=== PATIENT | male | born 1960 | race Caucasian/White ===

== ENCOUNTER 2019-12-02 10:22 | Inpatient (IN) | payer MEDICARE, SELFPAY ==
[2019-12-02] VITALS (27 sets, daily range): BP systolic 91–112; BP diastolic 52–78; PULSE 62–76; RESP 16–27; TEMP 36.7; O2SAT 90–98; BMI 26.5
--- NOTE | 2019-12-02 10:41 | ECG_ITS ---
Measurements Intervals [place] Rate: 70 P: 44 [place]: 173 QRS: 30 QRSD: 87 T: 0 QT: 377 QTc: 407 SINUS RHYTHM MODERATE T-WAVE ABNORMALITY, CONSIDER LATERAL ISCHEMIA [-0.1+ mV T WAVE IN I/aV I/aVL/V5/V6] No previous ECG available for comparison Electronically Signed On 12-02-2019 20:48:55 CDT by Linda Awad M.D. [id number]
--- NOTE | 2019-12-02 10:41 | XRR_ITS ---
PROCEDURE INFORMATION: Exam: XR Chest, 1 View Exam date and time: 12/02/2019 10:50 AM Age: 59 years old Clinical indication: Cough; Prior surgery; Surgery date: 6+ months; Surgery type: Heart; Additional info: Cough/congestion TECHNIQUE: Imaging protocol: XR of the chest Views: 1 view. COMPARISON: CR Chest 1 [place] [id number] 03/24/2018 9:44 PM FINDINGS: Lungs: Lungs are well aerated without a focal area of consolidation. Pleural space: Unremarkable. No pleural effusion. No pneumothorax. Heart/Mediastinum: The cardiac silhouette appears enlarged, some of which is magnification related to the AP projection. Bones/joints: Prior sternotomy XR/XR chest 1V portable [id number] IMPRESSION: Lungs are well aerated without a focal area of consolidation.
--- NOTE | 2019-12-02 10:59 | ED_ITS ---
Entered by Sharon Arroyo, acting as scribe for Zaria Ignacio HPI - Chest Pain General: Chief Complaint: Chest Pain Stated Complaint: CHEST PAIN Time Seen by Provider: 12/02/19 10:59 Source: patient Mode of arrival: ambulatory Limitations: no limitations History of Present Illness: HPI narrative: 59 yo Male presents to ED with complaint of chest pain. Pt states that he has 17 stents and an extensive cardiac history. Pt states that his pain started last night. The pain is been waxing and waning but is never completely gone away. He has associated shortness of breath and nausea but denies diaphoresis. He does have occasional radiation down his left arm. MD complaint: chest pain Pertinent past history: coronary artery disease and prior MA Onset (ago): day(s) Timing of current episode: episodic and still present Prior episodes: Yes Onset: during rest Pain location: substernal Pain radiation: left arm, back, neck and left shoulder Pain scale (0-10): 3 Quality: tightness Relieving factors: nothing Exacerbating factors: nothing Associated symptoms: Reports diaphoresis, dyspnea and nausea; Deny palpitations or syncope Treatment prior to arrival: none Review of Systems General: Reports: other (negative unless marked) Const: Reports: diaphoresis Eyes: Denies: change in vision or blurry vision ENMT: Denies: throat pain, painful swallowing, hoarseness, ear pain, ear discharge, Change in hearing or nasal discharge Card: Reports: chest pain, shortness of breath on exertion and shortness of breath when lying down; Denies: palpitations, irregular heart rhythm, syncope or pre-syncope Resp: Reports: shortness of breath GI: Reports: nausea : Denies: flank pain, difficulty urinating, painful urination, urinary frequency, urinary urgency, decreased urine ouput, urinary incontinence or blood in urine Musc: Denies: neck pain, back pain, extremity pain, extremity swelling, joint pain, joint swelling, joint warmth or joint stiffness Skin/Breast: Denies: rash, skin tenderness or yellow skin Neuro: Denies: headache, numbness in extremities, weakness in extremities, changes in sensation, lack of coordination, difficulty walking, dizziness, vertigo or confusion Endo: Denies: excessive thirst, tired all the time, cold intolerance, excessive sweating, flushing or hot flashes Jerry/Lymph: Denies: easy bruising, easy bleeding, petechiae or enlarged lymph nodes All/Imm: Denies: hives, throat swelling, tongue swelling, facial swelling or acute wheezing PFSH ED PFSH: Medical History (Updated 12/02/19 @ 18:31 by Gurvinder Bah MD) Abuse of smoked substance 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 Started having heart problems in the 30s. No problems noted. Family/Other CAD (coronary artery disease) Many of his uncles and aunts on the paternal side had heart disease/hear t attack in their 30s and 50s. His sister and brother both had coronary disease and coronary intervention in their 50s. Social History (Updated 12/02/19 @ 17:58 by Rajwinder Palm MD) Smoking and tobacco status: current every day smoker cigarettes Packs smoked per day: 1.5 Years cigarettes smoked: 40 [ Other cigarette details: Currently he smokes less than half pack a day especially over the last 1 year. ] Physical Exam Const: COMMON NORMALS: no apparent distress, oriented x3, no limitations, heal thy appearing and well nourished EXAM LIMITATIONS: no altered mental status GENERAL APPEARANCE: cooperative, well kempt and well developed ORIENTATION/CONSCIOUSNESS: Yes awake HENMT: COMMON NORMALS: normocephalic, head/scalp atraumatic, hearing grossly normal bilaterally, external ears normal, EAC's normal, external nose normal and moist oral mucous membranes HEAD & SCALP: normal to inspection, normocephalic and atraumatic FACE & SINUS: normal facial exam and face symmetric NOSE: external nose normal and nares normal EXTERNAL EAR: Yes external ears normal EXTERNAL AUDITORY CANAL: EAC's normal MOUTH: oral and palatal mucosa normal and tongue normal Eye: COMMON NORMALS: PERRL, EOMs intact bilaterally, conjunctivae normal and no scleral icterus GENERAL EYE: normal appearance of both eyes and normal light reflex CONJUNCTIVA: Yes conjunctivae normal SCLERA: sclerae normal CORNEA: Yes corneas normal PUPIL: Yes PERRL DIRECT OPHTHALMOSCOPY: Yes normal light reflex Neck/C-Spine: COMMON NORMALS: full ROM, no lymphadenopathy, supple, no meningeal signs and no JVD GENERAL: Yes normal visual inspection and Yes trachea midline CERVICAL SPINE: Yes cervical ROM normal Chest: COMMONS NORMALS: inspection of chest normal and palpation of chest normal Resp: COMMON NORMALS: normal respiratory effort, no retractions, no use of accessory muscles and clear to auscultation bilaterally EFFORT & INSPECTION: Yes able to speak in complete sentences AUSCULTATION: clear to auscultation bilaterally Cardio: COMMON NORMALS: no JVD, regular rate, regular rhythm, S1 normal heart sound, S2 normal heart sound, no gallops, no clicks, no murmurs and no rub JUGULAR VENOUS DISTENTION: no JVD RATE: regular rate RHYTHM: regular rhythm HEART SOUNDS: S1 normal and S2 normal GI: COMMON NORMALS: soft to palpation, non-tender, no hepatosplenomegaly and no masses INSPECTION: Yes normal to inspection PALPATION: Yes soft and Yes no hepatosplenomegaly : COMMON NORMALS: Yes no CVA tenderness BLADDER/KIDNEY EXAM: Yes no CVA tenderness Back/Pelvis: COMMON NORMALS: no CVA tenderness, thoracic and lumbar spine normal to inspection, no thoracic nor lumbar tenderness and thoraco-lumbar ROM normal Extremity: COMMON NORMALS: normal to inspection, full ROM, normal capillary refill, no joint enlargement, no clubbing, cyanosis or edema and no calf tenderness Neuro: COMMON NORMALS: oriented x3, CN's II-XII intact bilaterally, moves all extremities, no focal motor deficits and no sensory deficits noted MENINGEAL SIGNS: Yes no meningeal signs Psych: COMMON NORMALS: mental status grossly normal, thought process normal, cooperative, affect normal, speech normal and activity/motor behavior normal APPEARANCE: Yes well kempt SPEECH: Yes normal speech THOUGHT PROCESS: normal thought process Skin: COMMON NORMALS: no rashes or lesions noted, skin turgor normal, no jaundice, no petechiae and no mottling GENERAL SKIN EXAM: no rashes or lesions noted and turgor normal Course Consultations: Consultation #1: Spoke with Dr. Palm, Manager Field Sales. All EKGs presented to and discussed with him. First EKG is most suspicious but after seeing the other EKGs and further discussion, cannot call STEMI at this time. Time: 11:30 Consultation #2: Spoke with Dr. Palm, Manager [employer], to notify him of a significant jump in the patient's troponin. Pt is pain free at this time. Dr. Chowdary, Hospitalist, has also been notified of the patient's critical lab finding. Time: 20:40 Vital Signs: Vital signs: Vital Signs Temperature 98.1 F 12/02/19 22:30 Pulse Rate 70 12/02/19 22:45 Respiratory Rate 22 H 12/02/19 22:45 Blood Pressure 108/70 12/02/19 22:45 Pulse Oximetry 94 12/02/19 22:45 MDM - Chest Pain MDM Narrative: Medical decision making narrative: Mr. Polk is a nice 59-year-old male who comes in complaining of chest pain that is been constant since last night but waxing and waning in intensity. He has associated symptoms of nausea, shortness of breath and radiation down his left arm. He has an extensive cardiac history including 17 stents and bypass surgery. There is record that he is noncompliant and continues to smoke and does not take his medicines like he is supposed to. After 3 nitroglycerin his pain is gone from a 3 out of 10 to a 2 out of 10. I am going to give him morphine and Zofran at this time. I reviewed the case with Dr. Palm who reviewed all the EKGs and agrees his first EKG looked very suspicious but on his second and third EKGs performed here there is no criteria for a STEMI. He recommends giving the patient gentle IV fluids, nitroglycerin and Lovenox and he will consult on the patient. I reviewed this plan in case with Dr. Bah who is agreeable to all this and would like the patient admitted to the ICU. We will continue to aggressively treat the patient's pain. 1430 -patient continues to have intermittent pain that never goes above 2 out of 10. It resolved with morphine. His heart rate and blood pressure are stable. His EKG is unchanging. EKGs were reviewed with Dr. Palm and he agrees. Dr. Garrett and Dr. Palm are aware. Lab Data: Attestation: I reviewed the patient's lab results. Labs: Lab Results 12/02/19 12/02/19 12/02/19 Range/Units 11:00 11:00 11:00 WBC 9.3 (4.0-10.0) 10^3/ uL RBC 4.90 (4.1-5.3) 10^6/u L Hgb 15.1 (11.7-16.6) g/dL Hct 45.7 (42.0-52.0) % MCV 93.3 (80-94) fL MCH 30.8 (28.0-34.0) pg MCHC 33.0 (30.0-36.0) g/dL RDW 13.0 (12.1-15.1) % Plt Count 270 (130-400) 10^3/c mm MPV 9.7 (7.4-10.4) fL Neut % (Auto) 71.0 % Lymph % (Auto) 21.3 % [place] % (Auto) 5.3 % Eos % (Auto) 1.6 % Baso % (Auto) 0.2 % Neut # (Auto) 6.6 (1.8-7.7) 10^3/u L Lymph # (Auto) 2.0 (0.8-4.8) 10^3/u L [place] # (Auto) 0.5 (0.2-0.9) 10^3/u L Eos # (Auto) 0.2 (0.0-0.8) 10^3/u L Baso # (Auto) 0.0 (0.0-0.1) 10^3/u L Nucleated RBC % (a uto) 0 % Nucleated RBCs # 0.0 /100WBC Sodium 133 L (136-145) mmol/L Potassium 4.2 (3.5-5.1) mmol/L Chloride 98 (98-107) mmol/L Carbon Dioxide 23 (22-29) mmol/L Anion Gap 16.2 (5-19) BUN 5 L (8-23) mg/dL Creatinine 0.7 (0.7-1.2) mg/dL GFR Calculation 115.0 (90-130) mL/min Glucose 121 H (65-115) mg/dL Calculated Osmolal ity 273 L (285-295) mOsm/k g Calcium 9.5 (8.5-10.5) mg/dL Total Bilirubin 0.5 (0.15-1.2) mg/dL AST 35 (0-40) U/L ALT 15 (0-41) U/L Alkaline Phosphata se 70 (40-130) IU/L Troponin T Jean Carlos stahl 211 H* (0-15) ng/mL Total Protein 7.2 (6.6-8.7) g/dL Albumin 3.6 (3.5-5.2) g/dL Globulin 3.6 (1.3-4.6) g/dL Imaging Data^: CXR: Radiologist's impression: [address] [address] XRay Report Signed Patient: Jesus Polk Sr #: [id number] : 1960Acct#:[id number] Age/Sex: 59 / MADM Date: 12/02/19 Loc: [facility]/Bed: Attending Dr: Ordering Provider/Ordering MD: Smitha Frances Date of Service: 12/02/19 Procedure(s): XR chest 1V portable [id number] Accession Number(s): [id number] Report Number: [id number] PROCEDURE INFORMATION: Exam: XR Chest, 1 View Exam date and time: 12/02/2019 10:50 AM Age: 59 years old Clinical indication: Cough; Prior surgery; Surgery date: 6+ months; Surgery type: Heart; Additional info: Cough/congestion TECHNIQUE: Imaging protocol: XR of the chest Views: 1 view. COMPARISON: CR Chest 1 [place] [id number] 03/24/2018 9:44 PM FINDINGS: Lungs: Lungs are well aerated without a focal area of consolidation. Pleural space: Unremarkable. No pleural effusion. No pneumothorax. Heart/Mediastinum: The cardiac silhouette appears enlarged, some of which is magnification related to the AP projection. Bones/joints: Prior sternotomy XR/XR chest 1V portable [id number] IMPRESSION: Lungs are well aerated without a focal area of consolidation. Dictated By:Hayden Redmond MD Signed By:Hayden Redmond MDSigned Date/Time:12/02/19 1140 DD/ 1139 EKG Data^: EKG 1: Attestation: I personally reviewed and interpreted this EKG as follows: EKG interpretation date: 12/02/19 EKG interpretation time: 10:45 Interpretation: Normal sinus rhythm at 70 beats a minute, questionable ST elevation V2 through V6 with biphasic T waves in V3. No reciprocal changes. Normal intervals, no blocks. Reviewed and agreed upon by Dr. Palm. EKG 2: Attestation: I personally reviewed and interpreted this EKG as follows: EKG interpretation date: 12/02/19 EKG interpretation time: 11:10 Interpretation: Normal sinus rhythm at 70 beats a minute, nonspecific ST and T wave changes. Biphasic T waves in V3. T wave inversions V4 through V6 as well as aVF. PVC noted. Agreed upon with Dr. Palm. EKG 3: Attestation: I personally reviewed and interpreted this EKG as follows: EKG interpretation date: 12/02/19 EKG interpretation time: 11:23 Interpretation: Normal sinus rhythm at 86 beats a minute, nonspecific ST and T wave changes. Resolution of lateral T wave inversions. Agreed upon by Dr. Palm. EKG 4: Attestation: I personally reviewed and interpreted this EKG as follows: EKG interpretation date: 12/02/19 EKG interpretation time: 13:54 Interpretation: Sinus bradycardia at 59 beats a minute, nonspecific ST-T wave changes. T wave inversions V4 through V6. Confirmed with Dr. Palm. Discharge Plan Discharge Patient Disposition: Admitted As Inpatient Admit Provider: Gurvinder Bah Clinical Impression: Acute non-ST elevation myocardial infarction (NSTEMI) Condition: Stable Discharge Date/Time: 12/02/19 22:04 Coding Level of Care Code ED Waxer Operator for Chg Fwd Exam Comprehensive The documentation recorded by the Dina castellanos Carmen, accurately reflects the service I personally performed and the decisions made by [facility] Eli N Dec 02, 2019 10:22
--- NOTE | 2019-12-02 10:59 | ECG_ITS ---
Measurements Intervals [place] Rate: 86 P: 74 [place]: 160 QRS: 45 QRSD: 78 T: 20 QT: 350 QTc: 420 SINUS RHYTHM POSSIBLE LEFT ATRIAL ENLARGEMENT [-0.1mV P WAVE IN V1/V2] NONSPECIFIC T-WAVE ABNORMALITY No previous ECG available for comparison Electronically Signed On 12-02-2019 20:48:57 CDT by Linda Awad M.D. [id number]
[2019-12-02 11:08] LABS: Basophils % 0.2 %; Eosinophils # 0.2 10^3/uL (0.0-0.8); Eosinophils % 1.6 %; Hematocrit 45.7 % (42.0-52.0); Hemoglobin 15.1 g/dL (11.7-16.6); Lymphocytes % 21.3 %; Mean Corpuscular Hemoglobin 30.8 pg (28.0-34.0); Mean Corpuscular Volume 93.3 fL (80-94); Mean Platelet Volume 9.7 fL (7.4-10.4); Monocytes # 0.5 10^3/uL (0.2-0.9); Monocytes % 5.3 %; Neutrophils # 6.6 10^3/uL (1.8-7.7); Nucleated Red Blood Cells % 0 %; Platelet Count 270 10^3/cmm (130-400); White Blood Count 9.3 10^3/uL (4.0-10.0)
[2019-12-02] MEDS: nitroglycerin 0.4 mg sublingual Tablet SUBLINGUAL ×3 (11:08→11:18)
[2019-12-02] MEDS: aspirin 325 mg Tablet PO (11:08)
[2019-12-02 11:22] LABS: Alanine Aminotransferase 15 U/L (0-41); Albumin Level 3.6 g/dL (3.5-5.2); Alkaline Phosphatase 70 IU/L (40-130); Anion Gap 16.2 (5-19); Aspartate Amino Transferase 35 U/L (0-40); Blood Urea Nitrogen 5 mg/dL (8-23); Calcium 9.5 mg/dL (8.5-10.5); Carbon Dioxide 23 mmol/L (22-29); Chloride 98 mmol/L (98-107); Globulin 3.6 g/dL (1.3-4.6); Glucose 121 mg/dL (65-115); Osmolality Calculated 273 mOsm/kg (285-295); Potassium 4.2 mmol/L (3.5-5.1); Sodium 133 mmol/L (136-145); Total Bilirubin 0.5 mg/dL (0.15-1.2); Total Protein 7.2 g/dL (6.6-8.7)
[2019-12-02 11:39] LABS: Troponin(5th) Baseline 211 ng/mL (0-15)
[2019-12-02] MEDS: morphine 4 mg/mL SDV 1 mL IVP ×2 (11:47→14:08)
[2019-12-02] MEDS: ondansetron 2 mg/ML SDV 2 mL 4 MG IVP ×2 (11:48→23:20)
[2019-12-02] MEDS: nitroglycerin 1 gm/inch oint Pkt 1 INCH TOPICAL (11:48)
[2019-12-02] MEDS: sodium chloride 0.9% 1,000 ML 999 ML IV (12:02)
[2019-12-02] MEDS: enoxaparin 80 mg/0.8 mL Syringe 65 MG SUBCUT (12:02)
--- NOTE | 2019-12-02 12:41 | ECG_ITS ---
Measurements Intervals [place] Rate: 59 P: 38 [place]: 175 QRS: 26 QRSD: 80 T: -89 QT: 439 QTc: 437 SINUS BRADYCARDIA POSSIBLE RIGHT VENTRICULAR CONDUCTION DELAY [RSR (QR) IN V1/V2] MODERATE T-WAVE ABNORMALITY, CONSIDER ANTEROLATERAL ISCHEMIA [-0.1+ mV T WAVE IN V3-V6] No previous ECG available for comparison Electronically Signed On 12-02-2019 20:53:31 CDT by Linda Awad M.D. [id number]
--- NOTE | 2019-12-02 16:41 | ECG_ITS ---
Measurements Intervals [place] Rate: 70 P: 46 [place]: 167 QRS: 41 QRSD: 89 T: 254 QT: 402 QTc: 434 SINUS RHYTHM WITH OCCASIONAL VENTRICULAR PREMATURE COMPLEXES MODERATE T-WAVE ABNORMALITY, CONSIDER ANTERIOR ISCHEMIA [-0.1+ mV T WAVE IN V3 V3/V4] No previous ECG available for comparison Electronically Signed On 12-02-2019 20:52:54 CDT by Linda Awad M.D. [id number]
--- NOTE | 2019-12-02 17:35 | PM.CONSULT ---
Providers/Reason For Consult Consulting Physican/Specialty*: CATERINA Palm MD/cardiology Reason for Consult*: Patient with chest pain/elevated troponin T Requesting Kellyan: Zaria calderon History of Present Illness History of Present Illness Jesus Polk Sr is a 59 year old male who is admitted to the hospital through the emergency room, where he presented with the complaints of chest pain since last night. This patient is a very poor historian. He has an extensive history of coronary artery disease and had a multiple PCI's in the past. According the patient, he had a total of 17 stents over the last 24 years. He had his first myocardial event at the age of 35. Since then, he had multiple PCI's. In 2005, he had a three-vessel coronary bypass surgery, while being in [place]. Details of the bypass surgery is not available. Since the bypass surgery, he had coronary angiograms and PCI's. Most recently, he had a cardiac catheter[place] in April [address] Iris del real [place] [facility] [place] was found to have patent venous graft to the LAD. The venous graft the RCA was occluded. There was a high-grade lesion in the venous graft to the obtuse marginal artery which was primarily stented. He had a total occlusion of the LAD, left circumflex and right coronary artery. According the patient, he has not been to a physician for the last more than 2 years. His compliance to medication is questionable. He has not been feeling well for the last more than a week. He had a loss of appetite, nausea, low-grade fever and chills and some shortness of breath. Last night around 10:00, he started having pain in the upper substernal area which was radiating to the left arm associated with nausea and shortness of breath. The pain was waxing and waning up until midnight. Intensity of the pain was 8/10. Finally the pain started easing off enough for him to go to bed. Around 8:00 this morning, he woke up again with pain in the chest and also in the left arm. The intensity of the pain was 5/10 at this time. He had a nausea and some shortness of breath. No palpitation, dizziness or syncopal episode. No significant cough or hemoptysis. No abdominal pain or dysuria. No other specific complaints. Because of the persistence of the symptoms, he decided to come to the hospital. [place] [facility] [place] [facility]. At the time of my examination, the pain is 1 or 2/10 in intensity. Review of Systems Narrative: CONSTITUTIONAL: Low-grade fever and chills as mentioned above. Generalized weakness, nausea and loss of appetite. EYES: No blurring of vision or other visual disturbances lately. ENT: No hoarseness of voice, auditory disturbances or sore throat. CARDIOVASCULAR: As mentioned above. RESPIRATORY: Has been having some shortness of breath with activities. GASTROINTESTINAL: No hematemesis or melena. GENITOURINARY: No dysuria or hematuria. INTEGUMENTARY: No skin rashes or history of skin cancer. NEURO: No transient ischemic attacks or amaurosis. PSYCHIATRIC: No history of psychosis or major depression. HEMATOLOGIC: No bleeding disorders or significant anemia. ENDOCRINE: No history of polyuria or polydipsia. MUSCULOSKELETAL: No recent joint pain or swelling. ALLERGY/IMMUNOLOGY: As mentioned above. Meds/Allergies Home Medications and Allergies Home Medications Medication Instructions Recorded Confirmed Type furosemide 12/03/19 12/03/19 History lisinopril 12/03/19 12/03/19 History metoprolol succinate PO 12/03/19 12/03/19 History Allergies Allergy/AdvReac Type Severity Reaction Status Date / Time No Known Allergies Allergy Verified 12/02/19 10:34 Current Medications Current Medications Generic Name Dose Route Start Last Admin Trade Name Freq PRN Reason Stop Dose Admin Nitroglycerin 0.4 mg 12/02/19 10:59 12/02/19 11:18 Nitrostat SUBLINGUAL 1 tab Q5M PRN Administration CHEST PAIN PFSH Acute PFSH: Medical History (Updated 12/02/19 @ 18:31 by Gurvinder Bah MD) Abuse of smoked substance 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 Started having heart problems in the 30s. No problems noted. Family/Other CAD (coronary artery disease) Many of his uncles and aunts on the paternal side had heart disease/heart attack in their 30s and 50s. His sister and brother both had coronary disease and coronary intervention in their 50s. Social History (Updated 12/02/19 @ 17:58 by Rajwinder Palm MD) Smoking and tobacco status: current every day smoker cigarettes Packs smoked per day: 1.5 Years cigarettes smoked: 40 [ Other cigarette details: Currently he smokes less than half pack a day especially over the last 1 year. ] Vitals/I&O/Wt Last Vital Signs Temp 98.0 F 12/02/19 10:43 Pulse 72 12/02/19 10:43 Resp 18 12/02/19 14:08 BP 112/78 12/02/19 10:43 Pulse Ox 98 12/02/19 10:43 Weight last 48 hrs Weight 145 lb Physical Exam Narrative: EXAM NARRATIVE: GENERAL: The patient is alert and oriented times three. Not in any acute distress. HEENT: Minimal pallor, icterus or lymphadenopathy. The pupils are reactant to light. Oral cavity: There are no mucous membrane lesions. Funduscopic examination: The fundus is not visualized NECK: Trachea appears to be central. No masses noted. No JVD or thyromegaly appreciated. No carotid bruit. RESPIRATORY: Chest is symmetrical. No intercostals muscle retraction or any accessory muscle activation. There is no chest wall tenderness. Breath sounds are heard bilaterally. No rales or rhonchi heard. No evidence of any consolidation. BREASTS: Deferred. HEART: The PMI is in the 5th left intercostals space just inside the midclavicular line. No palpable precordial events. S1 and S2 are normal. No S3 or S4 heard. No pericardial rub or any click heard. Short systolic murmur in the left sternal border ABDOMEN: No vessel pulsations or distention. No tenderness. No organomegaly appreciated. No abdominal bruit. Bowel sounds are normally heard. : Deferred. RECTAL: Deferred. LYMPHATIC: No lymphadenopathy noted in the neck or groin. EXTREMITIES: No edema or cyanosis. No clubbing. The pulses are symmetrical bilaterally. The radial, femoral, dorsalis pedis and the posterior tibial pulses are palpated and found to be of low volume and amplitude. MUSCULOSKELETAL: No acute joint deformities or swelling SKIN: There are no significant scars or skin rash noted. NEUROPSYCHIATRIC: The patient is alert and oriented x3. Appears to be in a good mood. The higher functions are grossly within normal limits. No tremors or rigidity noted. Data Labs: Other Labs: Abnormal lab results 12/02/19 12/02/19 12/02/19 Range/Units 11:00 11:00 13:05 Sodium 133 L (136-145) mmol/L BUN 5 L (8-23) mg/dL Glucose 121 H (65-115) mg/dL Calculated Osmolal ity 273 L (285-295) mOsm/k g Troponin T Baselin e 211 H* (0-15) ng/mL Troponin T 120 [place] 286.0 H (0-15) ng/mL Delta Troponin T 75.0 H* (0-10) ABS# Imaging^: CXR: My impression: Normal cardiac silhouette with no lung infiltrates. No acute pathology noted. EKG^: EKG 1: My Interpretation: The EKG revealed sinus rhythm with diffused nonspecific ST-T changes in the anterolateral and inferior leads. Poor R wave progression. Questionable PVCs. Other Data: Other data: Cardiac authorization on 05/13/[address] Garcia Angiographic Findings Cardiac Arteries and Lesion Findings LMCA: Normal. LAD: Chronic occlusion.The vessel is occluded proximally LCx: Chronic occlusion.Proximal occlusion RCA: Chronic occlusion.Occluded in the midportion Cardiac Grafts - There is a Vein graft that originates at the Aorta Left and attaches to the 1st Ob Patricia (This graft has 2 lesions a 80-90% stenosis in the ostium down through the proximal portion of the graft and a 90% stenosis in the mid-portion of the graft.). - There is a Vein graft that originates at the Aorta Left and attaches to the Mid LAD (This graft is patent.). - There is a Vein graft that originates at the Aorta Right and attaches to the Dist RCA (This graft is occluded chronically.). A&P Assessment and plan (1) Acute non-ST elevation myocardial infarction (NSTEMI): Patient clinical features are consistent with an acute coronary syndrome, non-ST elevation myocardial infarction. Hemodynamically seems to be stable. He may be treated with subcu Lovenox, aspirin, Plavix, beta-edy, statin and other symptomatic measures. 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 The most recent cardiac cauterization 2016 revealed occluded venous graft to to the right coronary artery. High-grade lesion to the venous graft to obtuse marginal artery which was intervened. Patent venous graft to the LAD. Reocclusion of the venous graft/progression of disease in the other vessels are considerations. This needs to be further evaluated. Status: Acute Code(s): I25.810 - Atherosclerosis of coronary artery bypass graft(s) without angina pectoris (3) Benign essential hypertension with target blood pressure below 140/90: Currently he is normotensive. May continue on the current medications. Status: Acute Code(s): I10 - Essential (primary) hypertension (4) Abuse of smoked substance: Patient is strongly advised to quit smoking. 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
--- NOTE | 2019-12-02 18:18 | PM.HP ---
Providers/Chief Complaint Admitting Physician: Gurvinder Bah Chief Complaint: CHEST PAIN History of Present Illness Jesus Polk Sr is a 59 year old male presents to emergency department with severe bandlike pressure chest/back pain radiating to his left arm that started last evening when patient was sitting. Reports that he became very nauseous and diaphoretic as well as short of breath. Reports that by 12:00 pain gradually improved and he was able to go to sleep. At 8 AM this morning he woke up again with severe pain prompting further evaluation in the emergency department. He admits that he did not take medications for at least 1 year as he ran out. He did not have aspirin, nitroglycerin or analgesic at home to use. He reports similar episodes for the last couple weeks off-and-on but not to this severe extent. He did not present earlier because he does not like false alarm . He continues to smoke and reports that because of nausea he has been only smoking 5 cigarettes a day. His pain lasted until he presented to ER and was started on nitroglycerin drip. During my evaluation in emergency department patient's pain was gone but he continued to be slightly nauseous. Reports that he is hungry and wants to eat something as he did not eat since last evening. He has previous history of coronary artery disease requiring total of 17 stents since age 35 as well as three-vessel CABG in 2005. He has hypertension and dyslipidemia but denies previous history of diabetes. He is disabled because of the heart disease and is not very active. In the emergency department he had some concerning EKG changes and significantly elevated troponin. He was seen by Dr. Palm and diagnosed with non-ST elevation IA. Review of Systems Const: Reports: other; Denies: fever or chills Eyes: Denies: change in vision ENMT: Denies: throat pain or nasal congestion Card: Denies: edema, lightheadedness or shortness of breath when lying down Resp: Reports: productive cough (White phlegm productive. Chronic and unchanged.); Denies: coughing up blood GI: Denies: abdominal pain, vomiting, vomiting blood, coffee grounds in vomit, difficulty swallowing, heartburn/indigestion, diarrhea, constipation, blood in stool or black tarry stool : Reports: difficulty urinating (Has difficulty to initiate urination, slow stream and dribbling. ); Denies: flank pain or painful urination Musc: Denies: neck pain or joint pain Skin/Breast: Denies: rash or itching Neuro: Denies: headache, numbness in extremities, weakness in extremities, changes in sensation or lack of coordination Psych: Denies: anxiety, depression, suicidal ideation or homicidal ideation Endo: Denies: cold intolerance, excessive sweating or heat intolerance Jerry/Lymph: Denies: easy bruising or tender lymph nodes Medications/Allergies Home Medications Medication Instructions Recorded Confirmed Last Taken Type No Known Home Medications 12/02/19 12/02/19 Unknown History Allergies Allergy/AdvReac Type Severity Reaction Status Date / Time No Known Allergies Allergy Verified 12/02/19 10:34 PFSH Acute PFSH: Medical History (Updated 12/02/19 @ 18:31 by Gurvinder Bah MD) Abuse of smoked substance 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 Started having heart problems in the 30s. No problems noted. Family/Other CAD (coronary artery disease) Many of his uncles and aunts on the paternal side had heart disease/heart attack in their 30s and 50s. His sister and brother both had coronary disease and coronary intervention in their 50s. Social History (Updated 12/02/19 @ 17:58 by Rajwinder Palm MD) Smoking and tobacco status: current every day smoker cigarettes Packs smoked per day: 1.5 Years cigarettes smoked: 40 [ Other cigarette details: Currently he smokes less than half pack a day especially over the last 1 year. ] Vitals/I&O/Wt Last Vital Signs Temp 98.0 F 12/02/19 10:43 Pulse 72 12/02/19 10:43 Resp 18 12/02/19 14:08 BP 112/78 12/02/19 10:43 Pulse Ox 98 12/02/19 10:43 Weight last 48 hrs Weight 65.771 kg Physical Exam Const: COMMON NORMALS: no apparent distress and oriented x3 EXAM LIMITATIONS: no altered mental status GENERAL APPEARANCE: cooperative, comfortable and well developed ORIENTATION/CONSCIOUSNESS: Yes awake, Yes oriented to person, Yes oriented to place and Yes oriented to time HENMT: COMMON NORMALS: normocephalic, head/scalp atraumatic, external ears normal, external nose normal, moist oral mucous membranes and oropharynx normal HEAD & SCALP: normocephalic and atraumatic FACE & SINUS: normal facial exam NOSE: external nose normal and nares normal EXTERNAL EAR: Yes external ears normal and Yes no preauricular adenopathy MOUTH: oral and palatal mucosa normal, lip normal and tongue normal THROAT: posterior oropharynx normal Eye: COMMON NORMALS: EOMs intact bilaterally and conjunctivae normal GENERAL EYE: normal appearance of both eyes CONJUNCTIVA: Yes conjunctivae normal SCLERA: sclerae normal Neck/C-Spine: COMMON NORMALS: no lymphadenopathy, supple, no meningeal signs and no JVD GENERAL: Yes normal visual inspection, Yes trachea midline and No JVD Lymph: LYMPHATIC: no lymphadenopathy noted Chest: COMMONS NORMALS: inspection of chest normal Resp: COMMON NORMALS: normal respiratory effort EFFORT & INSPECTION: Yes able to speak in complete sentences AUSCULTATION: wheezes (Expiratory. Along with coarse upper airway transmitted breath sounds throughout) Cardio: COMMON NORMALS: no JVD, regular rate, regular rhythm, S1 normal heart sound, S2 normal heart sound, no gallops, no murmurs and no rub RATE: regular rate RHYTHM: regular rhythm HEART SOUNDS: S1 normal and S2 normal GI: COMMON NORMALS: normal to inspection, nondistended, normoactive bowel sounds, soft to palpation and non-tender PALPATION: Yes soft : COMMON NORMALS: Yes no CVA tenderness and Yes external exam normal BLADDER/KIDNEY EXAM: Yes no CVA tenderness Back/Pelvis: COMMON NORMALS: no CVA tenderness and thoracic and lumbar spine normal to inspection Extremity: COMMON NORMALS: normal to inspection and no pedal edema Neuro: COMMON NORMALS: oriented x3, moves all extremities, no focal motor deficits and no sensory deficits noted SENSORIUM/ORIENTATION: Yes oriented to person, Yes oriented to place and Yes oriented to time MENINGEAL SIGNS: Yes no meningeal signs Psych: COMMON NORMALS: mental status grossly normal, thought process normal, cooperative and speech normal SPEECH: Yes normal speech THOUGHT PROCESS: normal thought process Skin: COMMON NORMALS: no rashes or lesions noted GENERAL SKIN EXAM: no rashes or lesions noted Data : 12/02/19 11:00 12/02/19 11:00 A&P Assessment and plan (1) Non-ST elevation IA (NSTEMI): Continue with aspirin and load patient with Plavix. Start heparin drip and gentle IV hydration. Clinically patient is not in heart failure. Blood pressure is on the lower side and therefore nitroglycerin was on hold. Will obtain echocardiogram to evaluate wall motion and ejection fraction. I had extensive discussion regarding importance of medical compliance. Patient voiced understanding. Will discuss with Dr. Palm but I think plan is to proceed with coronary angiogram tomorrow morning. Status: Acute Code(s): I21.4 - Non-ST elevation (NSTEMI) myocardial infarction (2) Abuse of smoked substance: Discussed extensively regarding importance of smoking cessation. Patient voiced understanding and reports that he will definitely quit. He does not want any pharmacological help. Status: Acute Code(s): F18.10 - Inhalant abuse, uncomplicated (3) COPD (chronic obstructive pulmonary disease): Appears in mild COPD exacerbation. Will try levalbuterol. Patient reports that he previously used to use bronchodilators which helped him to breathe. Status: Acute Code(s): J44.9 - Chronic obstructive pulmonary disease, unspecified Additional A&P Information Medical noncompliance. Benign prostatic hyperplasia. We will start patient on Flomax if blood pressure permits. Protonix for GI prophylaxis. Attestations Medical Necessity Statement*: Patient with non-ST elevation IA requires close ICU monitoring and treatment due to high risk of deterioration. I expect patient will require more than 2 midnights. 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
[2019-12-02] MEDS: clopidogrel 300 mg Tablet PO ×2 (18:32→23:09)
[2019-12-02 20:32] LABS: Troponin 5 6HR Delta 489 ng/L (0-12)
[2019-12-02 22:46] LABS: Thyroid Stimulating Hormone 2.11 uIU/mL (0.27-4.20)
[2019-12-02 22:49] LABS: Partial Thromboplastin Time 27.5 SECONDS (23.9-36.7)
[2019-12-02] MEDS: pantoprazole DR 40 mg Tablet PO (23:09)
[2019-12-02] MEDS: heparin drip 25,000 UNIT/500 ML PREMIX 16 UNIT IV (23:10)
[2019-12-02] MEDS: lactated ringers 1,000 ML 50 ML IV (23:10)
[2019-12-02] MEDS: levalbuterol 0.63 mg/3 mL Neb INHALATION (23:20)
[2019-12-02] MEDS: morphine 4 mg/mL SDV 1 mL 2 MG IVP (23:21)
--- NOTE | 2019-12-02 23:28 | PC.NURSE ---
rcvd pt from ed via stretcher. pt oob ambulatory to bed at this time. vss per cm. pt reports mild pain . assessment per flowsheet. orders reviewed. lab to draw ptt prior to heparin gtt starting.
[2019-12-03] VITALS (112 sets, daily range): BP systolic 70–123; BP diastolic 49–71; PULSE 64–122; RESP 12–29; O2SAT 89–96
[2019-12-03] MEDS: levalbuterol 0.63 mg/3 mL Neb INHALATION ×4 (03:17→20:18)
[2019-12-03 04:24] LABS: Basophils % 0.2 %; Eosinophils # 0.2 10^3/uL (0.0-0.8); Eosinophils % 2.2 %; Hematocrit 39.1 % (42.0-52.0); Hemoglobin 12.9 g/dL (11.7-16.6); Lymphocytes # 2.8 10^3/uL (0.8-4.8); Lymphocytes % 30.6 %; Mean Corpuscular Hemoglobin 31.6 pg (28.0-34.0); Mean Corpuscular Volume 95.8 fL (80-94); Mean Platelet Volume 10.4 fL (7.4-10.4); Monocytes # 0.7 10^3/uL (0.2-0.9); Neutrophils # 5.4 10^3/uL (1.8-7.7); Neutrophils % 58.5 %; Nucleated Red Blood Cells % 0 %; Platelet Count 239 10^3/cmm (130-400); Red Blood Count 4.08 10^6/uL (4.1-5.3); Red Cell Distribution Width 13.1 % (12.1-15.1); White Blood Count 9.2 10^3/uL (4.0-10.0)
[2019-12-03 04:48] LABS: Alanine Aminotransferase 16 U/L (0-41); Albumin Level 3.3 g/dL (3.5-5.2); Alkaline Phosphatase 59 IU/L (40-130); Anion Gap 13.2 (5-19); Aspartate Amino Transferase 65 U/L (0-40); Blood Urea Nitrogen 6 mg/dL (8-23); Calcium 8.9 mg/dL (8.5-10.5); Carbon Dioxide 24 mmol/L (22-29); Chloride 101 mmol/L (98-107); Globulin 2.9 g/dL (1.3-4.6); Glomerular Filtration Rate 137.4 mL/min (90-130); Glucose 97 mg/dL (65-115); Magnesium 1.9 mg/dL (1.7-2.3); Osmolality Calculated 274 mOsm/kg (285-295); Potassium 4.2 mmol/L (3.5-5.1); Sodium 134 mmol/L (136-145); Total Bilirubin 0.5 mg/dL (0.15-1.2); Total Protein 6.2 g/dL (6.6-8.7)
[2019-12-03 05:17] LABS: Chol HDL Ratio 11.96 mg/dL (1.0-5.00); Cholesterol 311 mg/dL (0-200); HDL Cholesterol 26 mg/dL (60-100); LDL Cholesterol Calculated 260 mg/dL (50-129); Triglycerides 124 mg/dL (0-150)
[2019-12-03 06:45] LABS: Add Urine Microscopic? NO; Bilirubin Urine Neg (NEGATIVE); Blood Urine Neg (Negative); Glucose Urine UA Norm (Normal); Ketones Urine Negative (Negative); Leukocyte Esterase Urine Negative (Negative); Nitrate Urine Negative (Negative); Protein Urine Neg (Negative); Specific Gravity, Urine 1.015 (1.005-1.030); Urine Appearance Clear (CLEAR); Urine Color Yellow (Yellow); Urobilinogen Urine Norm (Negative); pH Urine 6 (5-7)
[2019-12-03 07:17] LABS: Estmated Average Glucose 108; Hemoglobin A1C 5.4 % (4.0-6.0)
[2019-12-03] MEDS: morphine 4 mg/mL SDV 1 mL 2 MG IVP ×2 (08:23→16:11)
[2019-12-03] MEDS: ondansetron 2 mg/ML SDV 2 mL 4 MG IVP (08:24)
--- NOTE | 2019-12-03 09:19 | PM.PN ---
Subjective Subjective: Interval history: Patient continues to have some chest discomfort. He grades the intensity of the pain as 3/10. No fever or chills. No cough. No other specific symptoms. The troponin T is trending upwards. Medications: Reviewed: Yes Medication Review Details: Current Medications Acetaminophen (Tylenol) 650 mg PO Q6H PRN PRN Reason: Mild/Mod Pain Or Temp >/= 101 Aspirin (Aspirin Ec) 81 mg PO DAILY RACHEL Atorvastatin Calcium (Lipitor) 40 mg PO BEDTIME RACHEL Bisacodyl (Dulcolax) 10 mg PO DAILY PRN PRN Reason: CONSTIPATION Nitroglycerin/Dextrose (Nitroglycerin Drip) 50 mg in 250 mls @ 0 mls/hr IV .Q0M RCAHEL; Protocol Sodium Chloride (Sodium Chloride 0.9%) 1,000 mls @ 100 mls/hr IV .Q10H RACHEL Last Admin: 12/02/19 23:18 Dose: Not Given Documented by: Lactated Ringer's (Lactated Ringers) 1,000 mls @ 50 mls/hr IV .Q20H RACHEL Last Admin: 12/02/19 23:10 Dose: 50 mls/hr Documented by: Heparin Sodium/Sodium Chloride (Heparin Drip) 25,000 unit in 500 mls @ 15.785 mls/hr IV .Q24H [facility] Last Admin: 12/02/19 23:10 Dose: 12.16 unit/kg/hr, 16 mls/hr Documented by: Levalbuterol HCl (Xopenex) 0.63 mg INHALATION Q6H.RESPIRATORY RACHEL Last Admin: 12/03/19 09:05 Dose: 0.63 mg Documented by: Morphine Sulfate (Morphine) 2 mg IVP Q4H PRN PRN Reason: SEVERE PAIN Last Admin: 12/03/19 08:23 Dose: 2 mg Documented by: Ondansetron HCl (Zofran) 4 mg IVP Q8H PRN PRN Reason: vomiting, or N/V if npo Last Admin: 12/03/19 08:24 Dose: 4 mg Documented by: Vitals/I&O/Wt Last Vital Signs Temp 98.1 F 12/02/19 22:30 Pulse 80 12/03/19 09:06 Resp 16 12/03/19 09:06 BP 104/66 12/03/19 06:00 Pulse Ox 96 12/03/19 09:06 Weight last 48 hrs Weight 145 lb Physical Exam Narrative: EXAM NARRATIVE: GENERAL: The patient is alert and oriented times three. Not in any acute distress. HEENT: Minimal pallor, icterus or lymphadenopathy. The pupils are reactant to light. Oral cavity: There are no mucous membrane lesions. NECK: Trachea appears to be central. No masses noted. No JVD or thyromegaly appreciated. No carotid bruit. RESPIRATORY: Chest is symmetrical. No intercostals muscle retraction or any accessory muscle activation. There is no chest wall tenderness. Breath sounds are heard bilaterally. No rales or rhonchi heard. No evidence of any consolidation. BREASTS: Deferred. HEART: The PMI is in the 5th left intercostals space just inside the midclavicular line. No palpable precordial events. S1 and S2 are normal. No S3 or S4 heard. No pericardial rub or any click heard. Short systolic murmur in the left sternal border ABDOMEN: No vessel pulsations or distention. No tenderness. No organomegaly appreciated. No abdominal bruit. Bowel sounds are normally heard. : Deferred. RECTAL: Deferred. LYMPHATIC: No lymphadenopathy noted in the neck or groin. EXTREMITIES: No edema or cyanosis. No clubbing. The pulses are symmetrical bilaterally. The radial, femoral, dorsalis pedis and the posterior tibial pulses are palpated and found to be of low volume and amplitude. MUSCULOSKELETAL: No acute joint deformities or swelling SKIN: There are no significant scars or skin rash noted. NEUROPSYCHIATRIC: The patient is alert and oriented x3. Appears to be in a good mood. The higher functions are grossly within normal limits. No tremors or rigidity noted. Data : 12/03/19 03:20 12/03/19 03:20 Other Labs: Abnormal lab results 12/02/19 12/02/19 12/02/19 Range/Units 11:00 11:00 13:05 RBC (4.1-5.3) 10^6/uL Hct (42.0-52.0) % MCV (80-94) fL Sodium 133 L (136-145) mmol/L BUN 5 L (8-23) mg/dL Creatinine (0.7-1.2) mg/dL GFR Calculation (90-130) mL/min Glucose 121 H (65-115) mg/dL Calculated Osmolality 273 L (285-295) mOsm/kg AST (0-40) U/L Troponin I 6 Hour (0-15) ng/mL Troponin I Hi Sens Del (0-12) ng/L Troponin T Baseline 211 H* (0-15) ng/mL Troponin T 120 Minute 286.0 H (0-15) ng/mL Delta Troponin T 75.0 H* (0-10) ABS# Total Protein (6.6-8.7) g/dL Albumin (3.5-5.2) g/dL Cholesterol (0-200) mg/dL LDL Cholesterol, Calc (50-129) mg/dL HDL Cholesterol (60-100) mg/dL LDL/HDL Ratio (0.00-3.22) RATIO Cholesterol/HDL Ratio (1.0-5.00) mg/dL 12/02/19 12/03/19 12/03/19 Range/Units 20:00 03:20 03:20 RBC 4.08 L (4.1-5.3) 10^6/uL Hct 39.1 L (42.0-52.0) % MCV 95.8 H (80-94) fL Sodium 134 L (136-145) mmol/L BUN 6 L (8-23) mg/dL Creatinine 0.6 L (0.7-1.2) mg/dL GFR Calculation 137.4 H (90-130) mL/min Glucose (65-115) mg/dL Calculated Osmolality 274 L (285-295) mOsm/kg AST 65 H (0-40) U/L Troponin I 6 Hour 700.0 H (0-15) ng/mL Troponin I Hi Sens Del 489 H* (0-12) ng/L Troponin T Baseline (0-15) ng/mL Troponin T 120 Minute (0-15) ng/mL Delta Troponin T (0-10) ABS# Total Protein 6.2 L (6.6-8.7) g/dL Albumin 3.3 L (3.5-5.2) g/dL Cholesterol (0-200) mg/dL LDL Cholesterol, Calc (50-129) mg/dL HDL Cholesterol (60-100) mg/dL LDL/HDL Ratio (0.00-3.22) RATIO Cholesterol/HDL Ratio (1.0-5.00) mg/dL 12/03/19 Range/Units 03:20 RBC (4.1-5.3) 10^6/uL Hct (42.0-52.0) % MCV (80-94) fL Sodium (136-145) mmol/L BUN (8-23) mg/dL Creatinine (0.7-1.2) mg/dL GFR Calculation (90-130) mL/min Glucose (65-115) mg/dL Calculated Osmolality (285-295) mOsm/kg AST (0-40) U/L Troponin I 6 Hour (0-15) ng/mL Troponin I Hi Sens Del (0-12) ng/L Troponin T Baseline (0-15) ng/mL Troponin T 120 Minute (0-15) ng/mL Delta Troponin T (0-10) ABS# Total Protein (6.6-8.7) g/dL Albumin (3.5-5.2) g/dL Cholesterol 311 H (0-200) mg/dL LDL Cholesterol, Calc 260 H (50-129) mg/dL HDL Cholesterol 26 L (60-100) mg/dL LDL/HDL Ratio 10.00 H (0.00-3.22) RATIO Cholesterol/HDL Ratio 11.96 H (1.0-5.00) mg/dL A&P Assessment and plan (1) Acute non-ST elevation myocardial infarction (NSTEMI): Patient clinical features are consistent with an acute coronary syndrome, non-ST elevation myocardial infarction. Hemodynamically seems to be stable. He may be continued on subcu Lovenox, aspirin, Plavix, beta-edy, statin and other symptomatic measures. Because of the ongoing chest pains, it would be appropriate to go ahead and do a cardiac catheterization, to further evaluate the coronary status as well as the graft status, to decide on further management. This was discussed with the patient in detail which he understood well and consented to proceed. I will be asking my colleague Dr. Simmons to perform this procedure. 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 The most recent cardiac cauterization 2017 revealed occluded venous graft to to the right coronary artery. High-grade lesion to the venous graft to obtuse marginal artery which was intervened. Patent venous graft to the LAD. Reocclusion of the venous graft/progression of disease in the other vessels are considerations. This needs to be further evaluated. Status: Acute Code(s): I25.810 - Atherosclerosis of coronary artery bypass graft(s) without angina pectoris (3) Benign essential hypertension with target blood pressure below 140/90: Currently he is normotensive. May continue on the current medications. The blood pressure is in the low normal side. We may give him a very small dose of metoprolol 12.5 mg p.o. twice daily Status: Acute Code(s): I10 - Essential (primary) hypertension (4) Abuse of smoked substance: Patient is strongly advised to quit smoking. Status: Acute Code(s): F18.10 - Inhalant abuse, uncomplicated Additional A&P Information History of COPD Based on the clinical response and the results of the cardiac authorization, further recommendations will be made. Patient will be kept n.p.o. 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
--- NOTE | 2019-12-03 09:36 | XACV_ITS ---
Exam Room: [facility] Ht: 157 cm Wt: 66 kg BSA: 1.71 m2 Gender: Male : 1960 Any Known Allergies: No known allergies Exam Priority: Routine Procedure(s): Procedure Description: Diagnostic procedure Procedure Description: PCI procedure Procedure Description: Venous Graft Catheterization Procedure Description: Drug Eluting Coronary Stent Procedure Description: PTCA Procedure Description: Coronary Angiography Diagnostic Cath Status: Urgent Diagnostic Findings Noncompliant patient with previous history of multiple stents and coronary bypass surgery with multiple stents and bypass grafts. Previous angiography 3 years ago revealed occluded [place] coronary arteries and occluded saphenous vein graft to the right coronary artery. At that time stents were placed in the saphenous vein graft to the circumflex. On this occasion presents with typical pain and enzyme increases. Angiography was performed from the right common femoral artery. Left main coronary artery contains mild diffuse disease. Circumflex and LAD have both been stented. Both are occluded in the proximal portion. There are several small septal branches which provide some collateral flow to the distal right. The [place] right coronary artery is also occluded just past its origin. The saphenous vein graft to the right remains occluded. The vein graft to the circumflex is patent. The previously placed stents are widely patent. There is some degree of stenosis at the ostium which causes ventricularization of the pressure waveform however the graft itself is patent. The graft to the LAD contains a 99% subtotal stenosis in the midportion. There is a large amount of thrombus just distal to this. The vessel is open at the insertion point and the LAD can be visualized. The flow in the graft is PASTOR I. This is a degenerated vein graft with significant debris in place. PCI Status: Urgent PCI LVEF Assessed: No PCI Indication: NSTE - ACS Interventional Findings Initially, angioplasty was performed at the area of stenosis. Subsequently this area of the graft was stented. Not unexpectedly there was further distal embolization of thrombus material and complete no reflow was noted. 1400 mcg of nicardipine was placed down the graft. This reestablished flow into the LAD. After this, an Aggrastat bolus was placed down the graft and a drip was started. At the end of the procedure there was reasonable flow to the LAD through the graft. Decision for PCI with Surgical Consult: No PCI for Multi-vessel Disease: No Conclusions All 3 [place] coronary arteries occluded. Saphenous vein graft to the right coronary artery occluded. Circumflex graft patent with previously placed stents patent. 99% stenosis of the LAD graft in the midportion with significant thrombus burden in the area and distally. Angioplasty and stent accomplished which caused no reflow and downstream embolization. Nicardipine and Aggrastat used with recanalization of the vessel and reestablishment of flow. No left ventriculogram performed. Recommendations Medical therapy. Interventional RX Recommendation: PCI w/o planned CABG Diagnostic RX Recommendation: PCI w/o planned CABG Anticoagulation: Heparin,Tirofiban Pressures Phase:Rest AO : 67 mmHg / 31 mmHg ( 43 mmHg ) @ 5:34:00 AM 111 mmHg / 67 mmHg ( 85 mmHg ) @ 5:44:00 AM 97 mmHg / 69 mmHg ( 82 mmHg ) @ 5:51:00 AM 106 mmHg / 71 mmHg ( 86 mmHg ) @ 6:02:00 AM 103 mmHg / 64 mmHg ( 81 mmHg ) @ 6:06:00 AM 96 mmHg / 63 mmHg ( 78 mmHg ) @ 6:16:00 AM Clinical Evaluation EBL: 5mL-10mL Procedural Details Procedure Consent Obtained. Pre-Procedure Time Out. Identified patient by full name and date of as verbalized by the patient/guarantor. Does the consent match the physician's order: Yes. Accurate & Complete Informed Consent: Yes. Inpatient/Outpatient History & Physical on Chart: Yes. If H&P is completed, is and addenduem needed: No; If yes, is the addendum complete: N/A. Visualize and Verify Site with Patient/Guarantor: N/A. Relevant Radiology Images available: N/A. Pre-op teaching completed and patient verbalized understanding. The risks, benefits, and alternatives of sedation and/or procedure were discussed by physician. The patient agrees to continue. Procedure started. [facility] Clinical Fraility Score: 4: Vulnerable. Jacker Feeder Indications: ACS <= 24 hours. Chest Pain Symptom Assessment: Typical Angina Symptoms. Cardiovascular Instability: No. Correct patient, site and procedure confirmed by cath team. PERRLA. Strong, equal hand self contained behavior unit teacher bilaterally. Lungs clear x 5 lobes. IV Site on Arrival: 18 gauge in the right anticubital. IV Fluids: 0.9% NaCl at KVO. 600 mL infused prior to [facility]. Oxygen started at 2liters/min via nasal canula. bilateral groins was prepped with chloroprep then draped in the usual sterile fashion. Baseline sample Acquired. HR: 72 BPM. Equipment: 6F - Femoral. Cardiac Cath Pack. ACIST Manifold Kit Model BT 2000. Heparinized Saline (2 units/mL), 1000 mL bag. Physician notified. Physician arrived. Physician scrubbed in. Immediate Pre-Procedure Time Out. Correct Patient: Yes; Correct Procedure: Yes; Correct Site: Yes; Correct Patient Position: Yes; Correct Supplies: Yes; Dried Flammable Prep: Yes; Blood Products Available: N/A;. Lidocaine 1% infiltrated to the right groin. Arterial access obtained. A JJ 6F JL4 100cm Diagnostic Catheter was advanced over the wire and used for Left coronary angiography. Multiple views taken of left coronary artery. A CRD 6F JR4 100cm Diagnostic Catheter was advanced over the wire and used for Right coronary angiography. Catheter out. Multiple views taken of right coronary artery. SVG's to OM visualized and patent. SVG's to LAD visualized and patent. A 6 sao tomean MPA1 catheter in over wire. SVG to RCA occluded. Inventory is CRD 6FR JR 4 GUIDE 100cm. 6 sao tomean JR 4 guide catheter was inserted over the wire. [place] guidewire was advanced through the guide catheter to lesion in the mid LAD. Inflation number : 1 A AB TREK 2.50X15 RX BALLOON was prepped and advanced across the Aorta Left -> Mid LAD , then inflated to 8 NELL for 0:17 seconds. Inflation number: 2 The AB TREK 2.50X15 RX BALLOON was reinflated across the Aorta Left -> Mid LAD, to 8 NELL for 0:25 seconds. Balloon out. Inflation Number : 3 A NISSA Govea PEDRO 3.0X18 VERONICA -Lot Number# [id number] (exp date 08/22/2021) was prepped and advanced across the Aorta Left -> Mid LAD. The stent was deployed at 12 NELL for 0:48 seconds. Stent balloon out over wire. Results checked. Inflation number: 4 The AB TREK 2.50X15 RX BALLOON was reinflated across the Aorta Left -> Mid LAD, to 8 NELL for 0:32 seconds. AB TREK 2.50x15 RX balloon inserted over wire to SVG LAD to mid lesion. Wire out. Guide catheter out. Physician scrubbed out. A Suture was successful obtaining hemostatsis at the Right Femoral artery insertion site. Sheath(s) sutured into position with 2-0 silk and sterile 4x4's and Op-site applied over the site. No oozing or signs and symptoms of hematoma noted. Arterial sheath flushed and connected to tranducer and pressure bag with heparinized saline. Post Procedure: Pulses reassessed and unchanged. PERRLA. Strong, equal hand self contained behavior unit teacher bilaterally. No VTE prophylaxis required. Medication's Wasted: Lidocaine 1% = 10 mL. Total IV fluids: 75 mL. Medication's Wasted: Other = versed 2 mg. Medication's Wasted: Heparin = 1000 units. Medication's Wasted: Other = cardene 23.6 mg. Contrast type used: Omnipaque 300 mgI/mL, 500 mL bottle. Complications: none. Estimated blood loss: 5mL-10mL. Procedure completed. Patient transferred by bed to ICU. Vital chart was stopped. PCI Indication: NSTE. Site: Right Femoral artery Sheath Size: 6 Fr Hemostasis Method: Suture Hemostasis Success: Successful Procedure Medications Start: 10:18 AM Stop: 10:18 AM Medication: Versed Amount: 1 mg Route: I.V. Start: 10:18 AM Stop: 10:18 AM Medication: Fentanyl Amount: 50 mcg Route: I.V. Start: 10:26 AM Stop: 10:26 AM Medication: Versed Amount: 1 mg Route: I.V. Start: 10:30 AM Stop: 10:30 AM Medication: Fentanyl Amount: 50 mcg Route: I.V. Start: 10:43 AM Stop: 10:43 AM Medication: Heparin Amount: 3000 units Route: I.V. Start: 10:44 AM Stop: 10:44 AM Medication: Versed Amount: 1 mg Route: I.V. Start: 10:55 AM Stop: 10:55 AM Medication: Versed Amount: 1 mg Route: I.V. Start: 10:59 AM Stop: 10:59 AM Medication: Fentanyl Amount: 25 mcg Route: I.V. Start: 11:03 AM Stop: 11:03 AM Medication: Cardene Amount: 200 mcg Route: I.C. Start: 11:05 AM Stop: 11:05 AM Medication: Cardene Amount: 200 mcg Route: I.C. Start: 11:06 AM Stop: 11:06 AM Medication: Cardene Amount: 200 mcg Route: I.C. Start: 11:09 AM Stop: 11:09 AM Medication: Cardene Amount: 200 mcg Route: I.C. Start: 11:10 AM Stop: 11:10 AM Medication: Cardene Amount: 200 mcg Route: I.C. Start: 11:14 AM Stop: 11:14 AM Medication: Cardene Amount: 200 mcg Route: I.C. Start: 11:16 AM Stop: 11:16 AM Medication: Cardene Amount: 200 mcg Route: I.C. Start: 11:20 AM Stop: 11:20 AM Medication: Aggrastat 12.5 mg/250 mL Amount: 33 ml Route: I.C. Start: 11:20 AM Stop: 11:20 AM Medication: Aggrastat 12.5 mg/250 mL Amount: 11.9 ml/hr Route: I.VErendira hankins I, the attending physician, have reviewed and verified all procedure medications. Yes, all medications given per verbal order History/Risk Factors Hypertension: Yes Dyslipidemia: Yes Peripheral Arterial Disease (PAD): No Myocardial Infarction (NM): Yes Obesity: No Renal Disease: No Tobacco Use: Current/Recent(w/in 1 year) Prior Interventions PCI: Yes CABG: Yes Valve Surgery: No Date of PCI: 05/03/2017 Report Signatures Finalized by:Dr. Hayden Simmons MD on 12/03/2019 12:02:51 PM
--- NOTE | 2019-12-03 09:43 | USCV_ITS ---
Jam Serrano Jesus Age: 59 Gender: M : 1960 Exam Date: 12/03/2019 09:28 Ordering Phys: Gurvinder Bah MD Technologist: Flavio Manley Exam Location: [facility] [place] Indication: NON ST ELEVATION MA BP: 105 / 67 HR: 73 Rhythm: Sinus Technical Quality: Adequate MEASUREMENTS (Male / Female) Normal Values 2D ECHO LV Diastolic Diameter PLAX 4.0 cm 4.2 - 5.9 / 3.9 - 5.3 cm LV Systolic Diameter PLAX 2.9 cm IVS Diastolic Thickness 1.4 cm 0.6 - 1.0 / 0.6 - 0.9 cm IVS Systolic Thickness 1.5 cm LVPW Diastolic Thickness 1.2 cm 0.6 - 1.0 / 0.6 - 0.9 cm LVPW Systolic Thickness 1.6 cm LVOT Diameter 2.0 cm LV Ejection Fraction 2D Teich 53.3 % LV Ejection Fraction MOD 2C 55.6 % LV Ejection Fraction 2C AL 54.8 % LA Diameter 4.3 cm LA Width 4.2 cm LA Height 5.0 cm RA Width 4.0 cm RA Height 3.2 cm Aorta at Sinotubular Diameter 2.9 cm M-MODE LV Diastolic Diameter MM 5.7 cm 4.2 - 5.9 / 3.9 - 5.3 cm LV Systolic Diameter MM 4.1 cm LV Ejection Fraction MM Teich 54.2 % IVS Diastolic Thickness MM 0.8 cm 0.6 - 1.0 / 0.6 - 0.9 cm IVS Systolic Thickness MM 1.6 cm LVPW Diastolic Thickness MM 1.5 cm 0.6 - 1.0 / 0.6 - 0.9 cm LVPW Systolic Thickness MM 1.8 cm RV Diastolic Diameter MM 1.7 cm Aortic Annulus Diameter 3.5 cm LA Ao Ratio MM 1.2 MV E Point Septal Separation 1.4 cm DOPPLER AV Peak Velocity 142.0 cm/s LVOT Peak Velocity 72.0 cm/s AV Area Cont Eq vti 1.7 cm squared AV Area Cont Eq pk 1.7 cm squared MV Area PHT 5.0 cm squared Mitral E to A Ratio 0.9 MV E' Velocity 6.0 cm/s Mitral E to MV E' Ratio 12.3 Mitral E to LV E' Lateral Ratio 12.9 Mitral E to LV E' Septal Ratio 11.9 TR Peak Velocity 195.0 cm/s TR Peak Gradient 15.2 mmHg TV Peak E Velocity 83.0 cm/s Right Atrial Pressure 3.0 mmHg Pulmonary Artery Systolic Pressu 18.2 mmHg FINDINGS Left Ventricle Moderate diffuse hypokinesia of the LV apex, mid and apical septum and anteroseptal segments. Normal LV size with ejection fraction around 40% Right Ventricle Normal right ventricular size and systolic function. Right Atrium Possibly of normal size Left Atrium Normal left atrial size. Mitral Valve Trace mitral valve regurgitation. Thickened mitral valve. Aortic Valve Thickened aortic valve. Trace aortic valve regurgitation. Aortic valve sclerosis. Tricuspid Valve No gross abnormalities noted Pulmonic Valve Pulmonic valve not well visualized. Pericardium No pericardial or pleural effusion. Aorta Normal aortic annulus size. CONCLUSIONS Moderate diffuse hypokinesia of the LV apex, mid and apical septum and anteroseptal segments. Normal LV size with ejection fraction around 40%. Type I diastolic dysfunction. Trace mitral valve regurgitation. Thickened mitral valve. Trace aortic valve regurgitation. Aortic valve sclerosis. There is no pericardial effusion. There are no intracardiac masses. No previous study is available for comparison. Dr Rajwinder Palm MD FACC (Electronically Signed) Final Date: 03 December 2019 09:53 S
[2019-12-03 15:09] LABS: Partial Thromboplastin Time 26.6 SECONDS (23.9-36.7)
--- NOTE | 2019-12-03 15:18 | PC.CHAP ---
Pastoral Care Encounter/Spiritual Assessment Type of Contact [] Declined police academy program coordinator visit [] Patient/Family/Request visit [] Outpatient visit [] Follow-up visit [] Physician referral [] Code/Alert [x] Routine visit [] Staff referral [] Actively dying [] Patient sleeping [] Family support [] [] Out of room [] Palliative care [] [] Receiving care in room [] Pre-surgical visit [] Trauma [] Long length of stay [x] ICU visit [] Other: Relational/Emotional Strength [x] Patient feels connected with others/family/visitors/staff [] Distress [] Loneliness/isolation [] Abandonment Spirituality of Patient [x] Person of Barbara [] Attends Jain of their Barbara [] Believes in Prayer [] Reads Bible or Hinduism materials [] There are Spiritual issues to be addressed Managed Security Sales Consultant Interventions [x] Prayer [x] Active listening [x] Non-anxious presence [x] Spiritual/emotional support [] Crisis/trauma care [] Spiritual counseling [] Bereavement support [] Provided bereavement packet [] Provided Bible/devotional materials [] Provided toy/stuffed animal, coloring book to patient or family member [] Provided Communion [x] Anointing/[place] [] Salvation [] Completed spiritual assessment [] Other: Impact on Illness or Injury [] Angry [] Fearful [x] Anxious [] Often cries [] Exhaustion [] Unable to work [] Unable to attend christianity [] Unable to walk/stand [] Unable to read [] Unable to drive [] Unable to eat/drink [] Unable to sleep [] Unable to be with family [] Patient intubated [] Other: Summary Visit with he and two family members. Prayer with alll Time spent with patient 5
--- NOTE | 2019-12-03 16:00 | PC.NURSE ---
Sheath pulled from right groin. Catheter intact. Pressure held for 20 minutes. Covered with pressure dressing. No hematoma observed or palpated. Patient tolerated procedure well.
[2019-12-03] MEDS: aspirin 81 mg EC Tablet PO (18:29)
[2019-12-03] MEDS: clopidogrel 75 mg Tablet PO (18:29)
[2019-12-03] MEDS: metoprolol tartrate 25 mg Tablet 12.5 MG PO (18:29)
--- NOTE | 2019-12-03 18:32 | PM.PN ---
Subjective Medications: Reviewed: Yes Medication Review Details: Current Medications Acetaminophen (Tylenol) 650 mg PO Q6H PRN PRN Reason: Mild/Mod Pain Or Temp >/= 101 Aspirin (Aspirin Ec) 81 mg PO DAILY [facility] Atorvastatin Calcium (Lipitor) 40 mg PO BEDTIME [facility] Bisacodyl (Dulcolax) 10 mg PO DAILY PRN PRN Reason: CONSTIPATION Nitroglycerin/Dextrose (Nitroglycerin Drip) 50 mg in 250 mls @ 0 mls/hr IV .Q0M RACHEL; Protocol Sodium Chloride (Sodium Chloride 0.9%) 1,000 mls @ 100 mls/hr IV .Q10H [facility] Last Admin: 12/02/19 23:18 Dose: Not Given Documented by: Lactated Ringer's (Lactated Ringers) 1,000 mls @ 50 mls/hr IV .Q20H [facility] Last Admin: 12/02/19 23:10 Dose: 50 mls/hr Documented by: Heparin Sodium/Sodium Chloride (Heparin Drip) 25,000 unit in 500 mls @ 15.785 mls/hr IV .Q24H [facility] Last Admin: 12/02/19 23:10 Dose: 12.16 unit/kg/hr, 16 mls/hr Documented by: Levalbuterol HCl (Xopenex) 0.63 mg INHALATION Q6H.RESPIRATORY [facility] Last Admin: 12/03/19 09:05 Dose: 0.63 mg Documented by: Morphine Sulfate (Morphine) 2 mg IVP Q4H PRN PRN Reason: SEVERE PAIN Last Admin: 12/03/19 08:23 Dose: 2 mg Documented by: Ondansetron HCl (Zofran) 4 mg IVP Q8H PRN PRN Reason: vomiting, or N/V if npo Last Admin: 12/03/19 08:24 Dose: 4 mg Documented by: Vitals/I&O/Wt Last Vital Signs Temp 98.1 F 12/02/19 22:30 Pulse 92 12/03/19 18:00 Resp 16 12/03/19 18:00 BP 104/64 12/03/19 18:00 Pulse Ox 96 12/03/19 18:00 12/03/19 12/03/19 12/03/19 06:59 14:59 22:59 Intake Total 236 / 236 200 / 436 Balance 236 / 236 200 / 436 Weight last 48 hrs Weight 65.771 kg Physical Exam Const: COMMON NORMALS: no apparent distress and oriented x3 EXAM LIMITATIONS: no altered mental status GENERAL APPEARANCE: cooperative, comfortable and well developed HENMT: COMMON NORMALS: moist oral mucous membranes and oropharynx normal Chest: COMMONS NORMALS: inspection of chest normal Resp: COMMON NORMALS: normal respiratory effort and clear to auscultation bilaterally EFFORT & INSPECTION: Yes able to speak in complete sentences AUSCULTATION: clear to auscultation bilaterally Cardio: COMMON NORMALS: regular rate, regular rhythm and S2 normal heart sound RATE: regular rate RHYTHM: regular rhythm HEART SOUNDS: S2 normal OTHER: No lower extremity edema GI: COMMON NORMALS: normal to inspection, nondistended, normoactive bowel sounds, soft to palpation and non-tender PALPATION: Yes soft Extremity: COMMON NORMALS: no pedal edema Neuro: COMMON NORMALS: oriented x3 Data : 12/03/19 03:20 12/03/19 03:20 A&P Assessment and plan (1) Non-ST elevation [place] (NSTEMI): Continue current monitoring and treatment and if patient remains stable we will likely be able to dismiss him home tomorrow. Status: Acute Code(s): I21.4 - Non-ST elevation (NSTEMI) myocardial infarction (2) Abuse of smoked substance: Discussed extensively regarding importance of smoking cessation. Patient voiced understanding and reports that he will definitely quit. He does not want any pharmacological help. Status: Acute Code(s): F18.10 - Inhalant abuse, uncomplicated (3) COPD (chronic obstructive pulmonary disease): COPD exacerbation resolved. Continue levalbuterol. Status: Acute Code(s): J44.9 - Chronic obstructive pulmonary disease, unspecified Additional A&P Information Medical noncompliance. Benign prostatic hyperplasia. We will start patient on Flomax if blood pressure permits. Protonix for GI prophylaxis. Attestations Medical Necessity Statement*: Patient post coronary angiogram and intervention requires close postprocedure inpatient monitoring and treatment Coding Level of Care Code Acute Germination Worker for g Fwd Diagnoses Non-ST elevation [place] (NSTEMI) I21.4 Abuse of smoked substance F18.10 COPD (chronic obstructive pulmonary disease) J44.9
[2019-12-04] VITALS (45 sets, daily range): BP systolic 79–121; BP diastolic 48–73; PULSE 65–92; RESP 7–31; TEMP 36.9–37.2; O2SAT 94–98
[2019-12-04] MEDS: levalbuterol 0.63 mg/3 mL Neb INHALATION ×4 (02:42→21:42)
[2019-12-04 04:03] LABS: Basophils % 0.2 %; Eosinophils # 0.2 10^3/uL (0.0-0.8); Eosinophils % 2.7 %; Hematocrit 36.2 % (42.0-52.0); Hemoglobin 12.1 g/dL (11.7-16.6); Lymphocytes # 1.7 10^3/uL (0.8-4.8); Lymphocytes % 19.7 %; Mean Corpuscular HGB Conc 33.4 g/dL (30.0-36.0); Mean Corpuscular Hemoglobin 30.8 pg (28.0-34.0); Mean Corpuscular Volume 92.1 fL (80-94); Mean Platelet Volume 9.7 fL (7.4-10.4); Monocytes # 0.7 10^3/uL (0.2-0.9); Monocytes % 7.6 %; Neutrophils # 6.1 10^3/uL (1.8-7.7); Neutrophils % 69.3 %; Nucleated Red Blood Cells % 0 %; Platelet Count 224 10^3/cmm (130-400); Red Blood Count 3.93 10^6/uL (4.1-5.3); Red Cell Distribution Width 13.1 % (12.1-15.1); White Blood Count 8.8 10^3/uL (4.0-10.0)
[2019-12-04 04:25] LABS: Anion Gap 12.2 (5-19); Blood Urea Nitrogen 7 mg/dL (8-23); Calcium 8.8 mg/dL (8.5-10.5); Carbon Dioxide 25 mmol/L (22-29); Chloride 103 mmol/L (98-107); Glomerular Filtration Rate 137.4 mL/min (90-130); Glucose 112 mg/dL (65-115); Osmolality Calculated 279 mOsm/kg (285-295); Potassium 4.2 mmol/L (3.5-5.1); Sodium 136 mmol/L (136-145)
[2019-12-04] MEDS: aspirin 81 mg EC Tablet PO (08:41)
[2019-12-04] MEDS: metoprolol tartrate 25 mg Tablet 12.5 MG PO ×2 (08:41→17:56)
[2019-12-04] MEDS: clopidogrel 75 mg Tablet PO (08:41)
--- NOTE | 2019-12-04 08:55 | P.DS_ITS ---
Discharge Providers Date of Admission: 12/02/19 11:51 Date of Discharge: December 04, 2019 Attending Provider at Admission: Gurvinder Bah MD Attending Provider at Discharge: Gurvinder Bah MD Diagnoses at Discharge Discharge Diagnosis (1) Non-ST elevation [place] (NSTEMI): Status: Acute (2) Abuse of smoked substance: Status: Acute (3) COPD (chronic obstructive pulmonary disease): Status: Acute Reason for Visit Reason for Visit: Reason For Visit: CHEST PAIN Hospital Course Hospital Course: Noncompliant patient with previous history of coronary artery disease and continued smoking presented with chest pain and diagnosed with acute myocardial infarction. He was taken to [facility] and underwent percutaneous intervention to LAD. He was monitored in ICU closely and this morning reports feeling much better and strong enough to be dismissed home. He denies any chest pain. He continues to have chronic shortness of breath which is unchanged. He has very minimal expiratory wheezing and we have discussed regarding importance of bronchodilators. Patient wants to have bronchodilators but not nebulized. He is not interested receiving nebulizer at home. I had prolonged discussion on several occasions for this patient regarding importance of medical compliance and smoking cessation. Patient voiced understanding and reports that he is not going to smoke again. He does not want any pharmacological help. Physical Exam Const: COMMON NORMALS: no apparent distress and oriented x3 Resp: COMMON NORMALS: normal respiratory effort and no use of accessory muscles OTHER: Very minimal occasional expiratory wheezing Cardio: COMMON NORMALS: regular rate, regular rhythm and S2 normal heart sound RATE: regular rate RHYTHM: regular rhythm HEART SOUNDS: S2 normal OTHER: No lower extremity edema GI: COMMON NORMALS: normal to inspection, nondistended, normoactive bowel sounds, soft to palpation and non-tender PALPATION: Yes soft Neuro: COMMON NORMALS: oriented x3 and no focal motor deficits Discharge Data Data Completed and Pending: Completed Studies During Hospitalization Category Date Time Status 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 Routin e Exams 12/03/19 09:36 Completed XR chest 1V silvina ble [id number] Urgent Exams 12/02/19 10:41 Completed CV echo complete* [id number] Routine Ultrasound 12/03/19 09:43 Completed Labs from last 24 hours 12/04/19 12/04/19 12/03/19 03:55 03:55 14:36 WBC 8.8 RBC 3.93 L Hgb 12.1 Hct 36.2 L MCV 92.1 MCH 30.8 MCHC 33.4 RDW 13.1 Plt Count 224 MPV 9.7 Neut % (Auto) 69.3 Lymph % (Auto) 19.7 Mcclain % (Auto) 7.6 Eos % (Auto) 2.7 Baso % (Auto) 0.2 Neut # (Auto) 6.1 Lymph # (Auto) 1.7 Mcclain # (Auto) 0.7 Eos # (Auto) 0.2 Baso # (Auto) 0.0 Nucleated RBC % (a uto) 0 Nucleated RBCs # 0.0 APTT 26.6 Sodium 136 Potassium 4.2 Chloride 103 Carbon Dioxide 25 Anion Gap 12.2 BUN 7 L Creatinine 0.6 L GFR Calculation 137.4 H Glucose 112 Calculated Osmolal ity 279 L Calcium 8.8 Vitals: Last Vital Signs Temp 99.0 F 12/04/19 08:00 Pulse 77 12/04/19 08:00 Resp 22 H 12/04/19 08:00 BP 106/60 12/04/19 08:00 Pulse Ox 94 12/04/19 08:00 Discharge Plan Discharge Patient Disposition: Home, Self-Care Condition: Stable Prescriptions: New aspirin 81 mg Tablet,Delayed Release (Dr/Ec) 81 mg PO DAILY Qty: 30 RF: 0 nitroglycerin [Nitrostat] 0.4 mg Tablet, Sublingual 0.4 mg sublingual Q5M PRN (Reason: Chest Pain) Qty: 25 RF: 0 albuterol sulfate 90 mcg/actuation HFA aerosol inhaler 1 inh INHALATION Q6H PRN (Reason: shortness of breath or wheezing) Qty: 18 RF: 0 Spiriva with HandiHaler 18 mcg capsule, w/inhalation device 1 cap INHALATION DAILY Qty: 30 RF: 0 clopidogrel 75 mg Tablet 75 mg PO DAILY Qty: 30 RF: 0 fluticasone propion-salmeterol [Advair Diskus] 250-50 mcg/dose blister with device 1 inh INHALATION Q12H Qty: 60 RF: 0 Changed metoprolol succinate 25 mg tablet extended release 24 hr 25 mg PO DAILY Qty: 30 RF: 0 lisinopril 2.5 mg tablet 2.5 mg PO DAILY Qty: 30 RF: 0 Discontinued furosemide 20 mg tablet RF: 0 Discharge Orders: Discharge Order (Routine); Ordered 12/04/19 Ordered By: Gurvinder Bah Referrals: Danna Sotelo FNP [Referring] - 12/09/19 8:45 am (Pt needs to bring some form of income, ex:disablilty statement, 2018 or 2019 tax return. There is a minumum of a $30 copay. ) Rajwinder Palm MD [Physician] - 2 weeks Chela Hartman MD [Physician] - 4-7 days Discharge Diet: Cardiac Discharge Activity: Limit activity as instructed Patient Instructions: Coronary Angioplasty (DC), Left Heart Catheterization (DC) Activity Restrictions/Additional Instructions: Please call your doctor or present to emergency department if your condition worsens or you develop diarrhea, lightheadedness, fatigue or see blood in your stool or black stool. Please make sure you quit smoking as we have discussed. Please discuss with your primary care physician if you need pharmacological help. Please keep blood pressure and heart rate log 3 times daily to present to primary care physician next visit for medication adjustment. Discharge Attestations Time Spent in Discharge Care*: greater than 30 min Quality Metrics Clinical Quality Measures During this hospital stay, did patient experience: AMI Clinical Trial Participant: No Contraindication to aspirin (AMI): Aspirin given Contraindication to statin: Adverse reaction to drug Coding Level of Care Code Acute Litharge Mill Operator for Aden Fernandez Diagnoses Non-ST elevation [place] (NSTEMI) I21.4 Abuse of smoked substance F18.10 COPD (chronic obstructive pulmonary disease) J44.9
--- NOTE | 2019-12-04 10:06 | ECG_ITS ---
Measurements Intervals [place] Rate: 63 P: 41 NM: 176 QRS: 9 QRSD: 79 T: 179 QT: 449 QTc: 460 SINUS RHYTHM LOW QRS VOLTAGE IN PRECORDIAL LEADS [QRS DEFLECTION < 1.0 mV IN CHEST LEADS] MARKED T-WAVE ABNORMALITY, CONSIDER ANTEROLATERAL ISCHEMIA [-0.5+ mV T WAVE IN I/aVL/V3-V6] Compared to ECG 03/24/2018 21:31:34 Low QRS voltage now present Possible ischemia now present T-wave abnormality still present Electronically Signed On 12-04-2019 19:33:32 CDT by Hayden Simmons M.D. [email or web address]
--- NOTE | 2019-12-04 10:34 | PC.NURSE ---
PT AMBULATED 170 FEET WITH NO ISSUES. PT MILDLY SHORT OF BREATH, BUT NO CHEST PAIN.
--- NOTE | 2019-12-04 10:41 | PC.CHAP ---
Pastoral Care Encounter/Spiritual Assessment Type of Contact [] Declined cross cut saw operator visit [] Patient/Family/Request visit [] Outpatient visit [] Follow-up visit [] Physician referral [] Code/Alert [x] Routine visit [] Staff referral [] Actively dying [] Patient sleeping [] Family support [] [] Out of room [] Palliative care [] [] Receiving care in room [] Pre-surgical visit [] Trauma [] Long length of stay [x] ICU visit [] Other: Relational/Emotional Strength [] Patient feels connected with others/family/visitors/staff [] Distress [] Loneliness/isolation [] Abandonment Spirituality of Patient [] Person of Barbara [] Attends Mormonism of their Barbara [x] Believes in Prayer [] Reads Bible or Christianity materials [] There are Spiritual issues to be addressed Bituminous Paving Machine Operator Interventions [] Prayer [] Active listening [] Non-anxious presence [] Spiritual/emotional support [] Crisis/trauma care [] Spiritual counseling [] Bereavement support [] Provided bereavement packet [] Provided Bible/devotional materials [] Provided toy/stuffed animal, coloring book to patient or family member [] Provided Communion [] Anointing/[place] [] Salvation [x] Completed spiritual assessment [] Other: Impact on Illness or Injury [] Angry [] Fearful [] Anxious [] Often cries [] Exhaustion [] Unable to work [] Unable to attend druze [] Unable to walk/stand [] Unable to read [] Unable to drive [] Unable to eat/drink [] Unable to sleep [] Unable to be with family [] Patient intubated [] Other: Summary Patient comfortable, but noted the room was to warm. Patient resting well Time spent with patient 10 min
[2019-12-04] MEDS: bismuth subsalicylate 240 mL Btl 15 ML PO (12:40)
--- NOTE | 2019-12-04 12:44 | PC.NURSE ---
PT IS REFUSING TO WEAR TELEMETRY
[2019-12-05] VITALS (62 sets, daily range): BP systolic 103–172; BP diastolic 65–94; PULSE 63–131; RESP 4–93; TEMP 36.9; O2SAT 93–97
[2019-12-05] MEDS: levalbuterol 0.63 mg/3 mL Neb INHALATION ×3 (02:58→20:40)
--- NOTE | 2019-12-05 03:20 | PC.NURSE ---
pt out of room states he is leaving because someone is trying to get in and [place] the place and they have hurt the people next door. security is notified of need for help. pt down the [place] barefooted in panic states he is leaving . pt assisted back to room dr. jarrett notified or need . order rcvd for 0.5 mg ativan x 1 ivp now pt agrees to take it at this time. yessenia bruno.
[2019-12-05] MEDS: LORazepam 2 mg/mL INJ 1 mL 0.5 MG IVP (03:29)
--- NOTE | 2019-12-05 03:43 | PC.NURSE ---
pt in bed vss per cm. pt continues to be anxious at this time but agrees to stay for now. pt concerned that the nurses are construction workers that are out to kill him over a bad drug deal his son made. security remains in icu at this time. yessenia bruno.
[2019-12-05] MEDS: OLANZapine 10 mg VIAL IM (04:54)
--- NOTE | 2019-12-05 05:19 | PC.NURSE ---
5140 pt has 1:1 sitter , increasingly confused and attempting to get oob. dr jarrett in icu. 10 mg zyprexa ordered and given per vane rn. 9987 pt continues to get oob despite multiple attempts to reorient. 2 person observation at this time. pt refuses cm or vs. pt refused assessment since onset of confusion. yessenia bruno
--- NOTE | 2019-12-05 07:18 | USCV_ITS ---
Jesus Polk Age: 59 Gender: M : 1960 Exam Date: 12/05/2019 07:45 Ordering Phys: Gurvinder Bah MD Technologist: AMNA SMITH Exam Location: [facility] [place] Indication: CONCERN FOR PERICARDIAL EFFUSION BP: / HR: Rhythm: Sinus Technical Quality: Adequate MEASUREMENTS (Male / Female) Normal Values FINDINGS Left Ventricle Moderate hypokinesia of the mid and apical anterior and anteroseptal segments. Moderate hypokinesis of the basal and mid inferior wall segment. Overall ejection fraction around 45%. Right Ventricle Normal right ventricular size and systolic function. Right Atrium Normal right atrial size. Left Atrium Normal left atrial size. Mitral Valve No gross abnormalities noted Aortic Valve No gross abnormalities noted Tricuspid Valve No gross abnormalities noted Pulmonic Valve Pulmonic valve not well visualized. Pericardium No pericardial effusion. Aorta Normal aortic annulus size. CONCLUSIONS Moderate hypokinesia of the mid and apical anterior and anteroseptal segments. Moderate hypokinesis of the basal and mid inferior wall segment. Overall LV ejection fraction around 45%. No pericardial effusion. No intracardiac masses. No previous studies available for comparison Dr Rajwinder Palm MD FACC (Electronically Signed) Final Date: 05 December 2019 14:22 S
[2019-12-05] MEDS: LORazepam 2 mg/mL INJ 1 mL IVP ×3 (07:56→22:35)
--- NOTE | 2019-12-05 08:12 | P.PN_ITS ---
Subjective Subjective: Interval history: Patient was initially discharged yesterday morning but per Dr. Palm's request discharge was postponed because of concerning EKG findings. Overnight patient became very confused and paranoid that [place] are spying and following him. He received Zyprexa and Ativan. This morning patient denies shortness of breath or chest pain. He admits seeing things that are not there. He again absolutely denied drinking alcohol or using illicit drugs. Vitals/I&O/Wt Last Vital Signs Temp 98.5 F 12/04/19 17:15 Pulse 101 H 12/05/19 04:00 Resp 29 H 12/05/19 04:00 BP 126/68 12/05/19 05:00 Pulse Ox 96 12/05/19 04:00 12/04/19 12/05/19 12/05/19 22:59 06:59 14:59 Intake Total 300 / 780 600 / 1380 80 / 80 Output Total 300 / 475 600 / 1075 Balance 0 / 305 0 / 305 80 / 80 Physical Exam Const: COMMON NORMALS: no apparent distress Resp: COMMON NORMALS: normal respiratory effort and clear to auscultation bilaterally AUSCULTATION: clear to auscultation bilaterally Cardio: COMMON NORMALS: regular rate, regular rhythm and S2 normal heart sound RATE: regular rate RHYTHM: regular rhythm HEART SOUNDS: S2 normal OTHER: No lower extremity edema GI: COMMON NORMALS: normal to inspection, nondistended, normoactive bowel sounds, soft to palpation and non-tender PALPATION: Yes soft Neuro: COMMON NORMALS: no focal motor deficits OTHER: Oriented to self on ly. Word salad speech Psych: OTHER: Paranoid Data : 12/04/19 03:55 12/04/19 03:55 A&P Assessment and plan (1) Non-ST elevation [place] (NSTEMI): Continue current monitoring and treatment and if patient remains stable we will likely be able to dismiss him home tomorrow. Status: Acute Code(s): I21.4 - Non-ST elevation (NSTEMI) myocardial infarction (2) Abuse of smoked substance: Discussed extensively regarding importance of smoking cessation. Patient voiced understanding and reports that he will definitely quit. He does not want any pharmacological help. Status: Acute Code(s): F18.10 - Inhalant abuse, uncomplicated (3) COPD (chronic obstructive pulmonary disease): COPD exacerbation resolved. Continue levalbuterol. Status: Acute Code(s): J44.9 - Chronic obstructive pulmonary disease, unspecified Additional A&P Information Medical noncompliance. Benign prostatic hyperplasia. Acute delirium We will start patient on Flomax if blood pressure permits. Will obtain limited echocardiogram to evaluate for evidence of pericardial effusion. Repeat EKG this morning. We will give patient 1 mg Ativan and start patient on CIWA protocol with close monitoring. Patient was given Zyprexa and I will continue that at this point. Discussed case with Dr. Rodarte who will see patient in consultation Protonix for GI prophylaxis. Obtain chest x-ray and repeat UA. Attestations Medical Necessity Statement*: Patient with recent myocardial infarction and st ent placement developed delirium requiring close ICU monitoring and treatment. Coding Level of Care Code Acute Lining Cleaner for Aden Fernandez Diagnoses Non-ST elevation [place] (NSTEMI) I21.4 Abuse of smoked substance F18.10 COPD (chronic obstructive pulmonary disease) J44.9
--- NOTE | 2019-12-05 08:15 | XR_ITS ---
WS: [id number] Portable AP upright chest, 12/05/2019 Clinical Data: Psychosis Comparison: Portable chest, 12/02/2019. Findings: No nodules, masses or effusions are seen. The heart is slightly enlarged. The pulmonary vas cularity is not increased. No pneumonia or pneumothorax is seen. Sternotomy sutures are present. The aortic arch shows mild calcification. Moderate osteoarthritis of the left shoulder is seen. XR/XR chest 1V portable [id number] Impression: Atherosclerosis.
--- NOTE | 2019-12-05 08:37 | PC.NURSE ---
Patient report recieved. Patient continues to be very confused and attempting to get out of bed. Patient states at this time he is in [place] and needs to get to [facility]. Attempts to reorient patient. 1:1 sitter at bedside at this time.
[2019-12-05] MEDS: folic acid 1 mg Tablet PO (08:57)
[2019-12-05] MEDS: clopidogrel 75 mg Tablet PO (08:57)
[2019-12-05] MEDS: multivitamin therapeutic Tablet 1 TAB PO (08:57)
[2019-12-05] MEDS: aspirin 81 mg EC Tablet PO (08:58)
[2019-12-05 09:02] LABS: Basophils % 0.2 %; Eosinophils % 0.1 %; Hematocrit 36.8 % (42.0-52.0); Hemoglobin 12.2 g/dL (11.7-16.6); Lymphocytes # 1.4 10^3/uL (0.8-4.8); Lymphocytes % 13.8 %; Mean Corpuscular HGB Conc 33.2 g/dL (30.0-36.0); Mean Corpuscular Hemoglobin 30.3 pg (28.0-34.0); Mean Corpuscular Volume 91.5 fL (80-94); Mean Platelet Volume 10.5 fL (7.4-10.4); Monocytes # 0.7 10^3/uL (0.2-0.9); Monocytes % 7.3 %; Neutrophils % 78.2 %; Nucleated Red Blood Cells % 0 %; Platelet Count 212 10^3/cmm (130-400); Red Blood Count 4.02 10^6/uL (4.1-5.3); White Blood Count 10.2 10^3/uL (4.0-10.0)
[2019-12-05 09:22] LABS: Alanine Aminotransferase 16 U/L (0-41); Albumin Level 3.9 g/dL (3.5-5.2); Alkaline Phosphatase 60 IU/L (40-130); Anion Gap 18.5 (5-19); Aspartate Amino Transferase 33 U/L (0-40); Blood Urea Nitrogen 7 mg/dL (8-23); Calcium 9.2 mg/dL (8.5-10.5); Carbon Dioxide 21 mmol/L (22-29); Chloride 98 mmol/L (98-107); Globulin 2.9 g/dL (1.3-4.6); Glomerular Filtration Rate 137.4 mL/min (90-130); Glucose 133 mg/dL (65-115); Osmolality Calculated 276 mOsm/kg (285-295); Potassium 3.5 mmol/L (3.5-5.1); Sodium 134 mmol/L (136-145); Total Bilirubin 0.6 mg/dL (0.15-1.2); Total Protein 6.8 g/dL (6.6-8.7)
[2019-12-05] MEDS: metoprolol tartrate 25 mg Tablet 12.5 MG PO ×2 (09:47→17:58)
[2019-12-05] MEDS: haloperidol inj 5 mg/mL INJ 1 mL IM (09:47)
[2019-12-05 10:20] LABS: Troponin T (5th) Once 1405 ng/mL (0-15)
--- NOTE | 2019-12-05 14:04 | P.CONIM_ITS ---
Providers/Reason for Consult Consulting Physican/Specialty*: Cayden Rodarte MD Psychiatry Reason for Consult*: Confusion, agitation, question of methamphetamine abuse Requesting Physcian: Gurvinder Bah MD Attending Physician: Gurvinder Bah MD Psych Consult HPI History of Present Illness Jesus Polk is a 59 year old male who came to the emergency room with angina that responded to nitroglycerin drip. He was ultimately diagnosed with a non-STEMI myocardial infarction. He states that he has had 17 stents in the last 24 years as well as a triple CABG. While in the ICU he became very agitated and confused, with visual hallucinations of demons, from home he attempted to flee. 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 I was asked to see the patient about his confusion and agitation, currently managed pharmacologically in the ICU. Review of Systems Narrative: Const Reports: other; Denies: fever or chills Eyes Denies: change in vision ENMT Denies: throat pain or nasal congestion Card Denies: edema, lightheadedness or shortness of breath when lying down Resp Reports: productive cough (White phlegm productive. Chronic and unchanged.); Denies: coughing up blood GI Denies: abdominal pain, vomiting, vomiting blood, coffee grounds in vomit, difficulty swallowing, heartburn/indigestion, diarrhea, constipation, blood in stool or black tarry stool Reports: difficulty urinating (Has difficulty to initiate urination, slow stream and dribbling. ); Denies: flank pain or painful urination Musc Denies: neck pain or joint pain Skin/Breast Denies: rash or itching Neuro Denies: headache, numbness in extremities, weakness in extremities, changes in sensation or lack of coordination Psych Denies: anxiety, depression, suicidal ideation or homicidal ideation. This is in no way commensurate with observations of the nursing staff. Endo Denies: cold intolerance, excessive sweating or heat intolerance Jerry/Lymph Denies: easy bruising or tender lymph nodes Meds Current Medications: Current Medications Generic Name Dose Route Start Last Admin Trade Name Freq PRN Reason Stop Dose Admin Aspirin 81 mg 12/03/19 09:00 12/05/19 08:58 Aspirin Ec PO 81 mg DAILY RACHEL Administration Bismuth Subsalicyl ate 15 ml 12/04/19 11:48 12/04/19 12:40 Pace Bismuth PO 15 ml Q4H PRN Administration DIARRHEA Clopidogrel Bisulf ate 75 mg 12/03/19 09:30 12/05/19 08:57 Plavix PO 75 mg DAILY RACHEL Administration Folic Acid 1 mg 12/05/19 09:00 12/05/19 08:57 Folic Acid PO 1 mg DAILY RACHEL Administration Sodium Chloride 1,000 mls @ 100 m ls/hr 12/03/19 11:45 12/03/19 16:14 Sodium Chloride 0.9% IV Not Given .Q10H RACHEL Levalbuterol HCl 0.63 mg 12/02/19 22:07 12/05/19 08:27 Xopenex INHALATION Not Given Q6H.RESPIRATORY S CH Lorazepam 2 mg 12/05/19 07:16 12/05/19 13:08 Ativan IVP 2 mg PRN PRN Administration WITHDRAWAL Protocol Metoprolol Tartrat e 12.5 mg 12/03/19 09:30 12/05/19 09:47 Lopressor PO 12.5 mg BID RACHEL Administration Morphine Sulfate 2 mg 12/02/19 22:07 12/03/19 16:11 Morphine IVP 2 mg Q4H PRN Administration SEVERE PAIN Multivitamins Ther apeutic 1 tab 12/05/19 09:00 12/05/19 08:57 Multivitamin Tab PO 1 tab DAILY RACHEL Administration Ondansetron HCl 4 mg 12/02/19 22:07 12/03/19 08:24 Zofran IVP 4 mg Q8H PRN Administration vomiting, or N/V if npo PFSH NPU PFSH: Medical History Abuse of smoked substance 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 Started having heart problems in the 30s. No problems noted. Family/Other CAD (coronary artery disease) Many of his uncles and aunts on the paternal side had heart disease/heart attack in their 30s and 50s. His sister and brother both had coronary disease and coronary intervention in their 50s. Social History Smoking and tobacco status: current every day smoker cigarettes Packs smoked per day: 1.5 Years cigarettes smoked: 40 [ Other cigarette details: Currently he smokes less than half pack a day especially over the last 1 year. ] Other Psychiatric History: Other Psychiatric History: The aforementioned substance abuse is of years duration. Mental Status Exam MSE Comments: The patient is currently sleeping and difficult to arouse. He is described as intermittently agitated and hallucinating. There is no drug screen so were not sure what toxicity he has incurred. When he is awake thought processes are said to be scrambled. He denies suicidal or homicidal ideation. He apparently sees demons , from whom he tries to flee. Vitals/I&O/Wt Last Vital Signs Temp 98.5 F 12/04/19 17:15 Pulse 74 12/05/19 13:15 Resp 35 H 12/05/19 13:15 BP 126/68 12/05/19 05:00 Pulse Ox 94 12/05/19 09:45 12/04/19 12/05/19 12/05/19 23:59 07:59 15:59 Intake Total 300 600 80 Output Total 300 600 Balance 0 0 80 Physical Exam Narrative: EXAM NARRATIVE: Const: COMMON NORMALS: no apparent distress and oriented x3 EXAM LIMITATIONS: no altered mental status GENERAL APPEARANCE: cooperative, comfortable and well developed ORIENTATION/CONSCIOUSNESS: Yes awake, Yes oriented to person, Yes oriented to place and Yes oriented to time HENMT: COMMON NORMALS: normocephalic, head/scalp atraumatic, external ears normal, external nose normal, moist oral mucous membranes and oropharynx normal HEAD & SCALP: normocephalic and atraumatic FACE & SINUS: normal facial exam NOSE: external nose normal and nares normal EXTERNAL EAR: Yes external ears normal and Yes no preauricular adenopathy MOUTH: oral and palatal mucosa normal, lip normal and tongue normal THROAT: posterior oropharynx normal Eye: COMMON NORMALS: EOMs intact bilaterally and conjunctivae normal GENERAL EYE: normal appearance of both eyes CONJUNCTIVA: Yes conjunctivae normal SCLERA: sclerae normal Neck/C-Spine: COMMON NORMALS: no lymphadenopathy, supple, no meningeal signs and no JVD GENERAL: Yes normal visual inspection, Yes trachea midline and No JVD Lymph: LYMPHATIC: no lymphadenopathy noted Chest: COMMONS NORMALS: inspection of chest normal Resp: COMMON NORMALS: normal respiratory effort EFFORT & INSPECTION: Yes able to speak in complete sentences AUSCULTATION: wheezes (Expiratory. Along with coarse upper airway transmitted breath sounds throughout) Cardio: COMMON NORMALS: no JVD, regular rate, regular rhythm, S1 normal heart sound, S2 normal heart sound, no gallops, no murmurs and no rub RATE: regular rate RHYTHM: regular rhythm HEART SOUNDS: S1 normal and S2 normal GI: COMMON NORMALS: normal to inspection, non-distended, normoactive bowel sounds, soft to palpation and non-tender PALPATION: Yes soft : COMMON NORMALS: Yes no CVA tenderness and Yes external exam normal BLADDER/KIDNEY EXAM: Yes no CVA tenderness Back/Pelvis: COMMON NORMALS: no CVA tenderness and thoracic and lumbar spine normal to inspection Extremity: COMMON NORMALS: normal to inspection and no pedal edema Neuro: COMMON NORMALS: oriented x3, moves all extremities, no focal motor deficits and no sensory deficits noted SENSORIUM/ORIENTATION: Yes oriented to person, Yes oriented to place and Yes oriented to time MENINGEAL SIGNS: Yes no meningeal signs Psych: COMMON NORMALS: mental status grossly normal, thought process normal, cooperative and speech normal SPEECH: Yes normal speech THOUGHT PROCESS: normal thought process Skin: COMMON NORMALS: no rashes or lesions noted GENERAL SKIN EXAM: no rashes or lesions noted A&P Assessment and plan (1) Delirium due to multiple etiologies, acute, mixed level of activity: The patient is currently being managed in the ICU via CIWA. Status: Acute Code(s): F05 - Delirium due to known physiological condition Additional A&P Information Doctor Olvin's A & P is as follows: Medical noncompliance. Benign prostatic hyperplasia. Acute delirium We will start patient on Flomax if blood pressure permits. Will obtain limited echocardiogram to evaluate for evidence of pericardial effusion. Repeat EKG this morning. We will give patient 1 mg Ativan and start patient on CIWA protocol with close monitoring. Patient was given Zyprexa and I will continue that at this point. Discussed case with Dr. Rodarte who will see patient in consultation Protonix for GI prophylaxis. Obtain chest x-ray and repeat UA. I agree with his dx and tmt plan. We will be happy to accept the patient as soon as the hospitalist deems him safe to transfer. Attestations NPU 2 Medical Necessity Statement*: The patient will require 5-7 midnights additional stay Coding Level of Care Code Acute Sheet Metal Journeyman for Theodoreg Fwd Diagnoses Delirium due to multiple etiologies, acute, mixed level of activity F05
--- NOTE | 2019-12-05 15:05 | P.PN_ITS ---
Subjective Subjective: Interval history: Patient is confused and restless in the ICU. He was found to have elevated troponin T. His echocardiogram revealed Medications: Reviewed: Yes Medication Review Details: Current Medications Acetaminophen (Tylenol) 650 mg PO Q6H PRN PRN Reason: Mild/Mod Pain Or Temp >/= 101 Aspirin (Aspirin Ec) 81 mg PO DAILY RACHEL Atorvastatin Calcium (Lipitor) 40 mg PO BEDTIME RACHEL Bisacodyl (Dulcolax) 10 mg PO DAILY PRN PRN Reason: CONSTIPATION Nitroglycerin/Dextrose (Nitroglycerin Drip) 50 mg in 250 mls @ 0 mls/hr IV .Q0M RACHEL; Protocol Sodium Chloride (Sodium Chloride 0.9%) 1,000 mls @ 100 mls/hr IV .Q10H RACHEL Last Admin: 12/02/19 23:18 Dose: Not Given Documented by: Lactated Ringer's (Lactated Ringers) 1,000 mls @ 50 mls/hr IV .Q20H RACHEL Last Admin: 12/02/19 23:10 Dose: 50 mls/hr Documented by: Heparin Sodium/Sodium Chloride (Heparin Drip) 25,000 unit in 500 mls @ 15.785 mls/hr IV .Q24H RACHEL Last Admin: 12/02/19 23:10 Dose: 12.16 unit/kg/hr, 16 mls/hr Documented by: Levalbuterol HCl (Xopenex) 0.63 mg INHALATION Q6H.RESPIRATORY RACHEL Last Admin: 12/03/19 09:05 Dose: 0.63 mg Documented by: Morphine Sulfate (Morphine) 2 mg IVP Q4H PRN PRN Reason: SEVERE PAIN Last Admin: 12/03/19 08:23 Dose: 2 mg Documented by: Ondansetron HCl (Zofran) 4 mg IVP Q8H PRN PRN Reason: vomiting, or N/V if npo Last Admin: 12/03/19 08:24 Dose: 4 mg Documented by: Vitals/I&O/Wt Last Vital Signs Temp 98.5 F 12/04/19 17:15 Pulse 74 12/05/19 13:15 Resp 35 H 12/05/19 13:15 BP 126/68 12/05/19 05:00 Pulse Ox 94 12/05/19 09:45 03/09/1312/05/19 12/05/19 06:59 14:59 22:59 Intake Total 600 / 1380 80 / 80 Output Total 600 / 1075 Balance 0 / 305 80 / 80 Physical Exam Narrative: EXAM NARRATIVE: GENERAL: The patient is alert and oriented times three. Not in any acute distress. HEENT: Minimal pallor, icterus or lymphadenopathy. The pupils are reactant to light. Oral cavity: There are no mucous membrane lesions. NECK: Trachea appears to be central. No masses noted. No JVD or thyromegaly appreciated. No carotid bruit. RESPIRATORY: Chest is symmetrical. No intercostals muscle retraction or any accessory muscle activation. There is no chest wall tenderness. Breath sounds are heard bilaterally. No rales or rhonchi heard. No evidence of any consolidation. BREASTS: Deferred. HEART: The PMI is in the 5th left intercostals space just inside the midclavicular line. No palpable precordial events. S1 and S2 are normal. No S3 or S4 heard. No pericardial rub or any click heard. Short systolic murmur in the left sternal border ABDOMEN: No vessel pulsations or distention. No tenderness. No organomegaly appreciated. No abdominal bruit. Bowel sounds are normally heard. : Deferred. RECTAL: Deferred. LYMPHATIC: No lymphadenopathy noted in the neck or groin. EXTREMITIES: No edema or cyanosis. No clubbing. The pulses are symmetrical bilaterally. The radial, femoral, dorsalis pedis and the posterior tibial pulses are palpated and found to be of low volume and amplitude. MUSCULOSKELETAL: No acute joint deformities or swelling SKIN: There are no significant scars or skin rash noted. NEUROPSYCHIATRIC: The patient is alert and oriented x3. Appears to be in a good mood. The higher functions are grossly within normal limits. No tremors or rigidity noted. Data : 12/05/19 07:52 12/05/19 07:52 A&P Assessment and plan (1) Acute non-ST elevation myocardial infarction (NSTEMI): Patient had a cardiac authorization on 12/03/2019. He had a high-grade lesion in the venous graft to the LAD which was intervened. This was a technically difficult procedure. He had a high clot burden in the graft. Most likely he had an intraprocedural NM, which may explain the high troponin T. Hemodynamically seems to be stable. 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 Saphenous vein graft to the right coronary artery occluded. Circumflex graft patent with previously placed stents patent. 99% stenosis of the LAD graft in the midportion with significant thrombus burden in the area and distally. Angioplasty and stent accomplished which caused no reflow and downstream embolization. Nicardipine and Aggrastat used with recanalization of the vessel and reestablishment of flow. No left ventriculogram performed. May continue on the current medications Status: Acute Code(s): I25.810 - Atherosclerosis of coronary artery bypass graft(s) without angina pectoris (3) Benign essential hypertension with target blood pressure below 140/90: Currently he is normotensive. Continue on the current medicines Status: Acute Code(s): I10 - Essential (primary) hypertension (4) Abuse of smoked substance: Today we also gave you know from the family members that the patient has been abusing methadone at home? 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
[2019-12-05] MEDS: OLANZapine ODT 5 MG TABLET PO (21:33)
[2019-12-06] VITALS (29 sets, daily range): BP systolic 92–146; BP diastolic 57–94; PULSE 69–105; RESP 15–38; TEMP 36.9–37.4; O2SAT 91–96
[2019-12-06] MEDS: levalbuterol 0.63 mg/3 mL Neb INHALATION ×4 (02:46→20:58)
--- NOTE | 2019-12-06 05:56 | PC.NURSE ---
SHIFT SUMMARY PT HAS REMAINED CONFUSED. ONE ON ONE SITTER REMAINS AT BEDSIDE. PT HAS HAD ADEQUATE URINE OUTPUT. PT RECEIVED ONE DOSE OF ATIVAN TO HELP WITH WITHDRAWAL SYMPTOMS. PT LUNGS REMAIN CLEAR, COARSE AT TIMES. PT HAS BEEN ABLE TO REST TONIGHT, EVEN AND UNLABORED BREATHS. PT HAS NOT KEPT MONITOR ON ALL OF SHIFT, AT TIMES HE WILL LET NURSE PUT MONITOR ON HIM AND TAKE BLOOD PRESSURE. PT ABLE TO TURN SELF IN BED. PT WILL FOLLOW SOME COMMANDS, NOT ALL. PT ORIENTATED TO SELF AND PLACE BUT IS UNSURE OF THE DATE.
[2019-12-06 07:21] LABS: Basophils % 0.4 %; Eosinophils # 0.3 10^3/uL (0.0-0.8); Eosinophils % 3.2 %; Hematocrit 38.6 % (42.0-52.0); Lymphocytes # 1.8 10^3/uL (0.8-4.8); Lymphocytes % 21.1 %; Mean Corpuscular HGB Conc 33.7 g/dL (30.0-36.0); Mean Corpuscular Hemoglobin 30.8 pg (28.0-34.0); Mean Corpuscular Volume 91.5 fL (80-94); Monocytes # 0.7 10^3/uL (0.2-0.9); Monocytes % 8.5 %; Neutrophils # 5.6 10^3/uL (1.8-7.7); Neutrophils % 66.1 %; Nucleated Red Blood Cells % 0 %; Platelet Count 221 10^3/cmm (130-400); Red Blood Count 4.22 10^6/uL (4.1-5.3); Red Cell Distribution Width 13.2 % (12.1-15.1); White Blood Count 8.4 10^3/uL (4.0-10.0)
--- NOTE | 2019-12-06 07:38 | PM.PN ---
Subjective Subjective: Interval history: Pablo is a noncompliant patient who does not follow-up with instructions or office visits. He has a history of coronary disease with multiple interventions and bypass surgery. He entered the hospital a few days ago with a non-STEMI. Angiography revealed a significant thrombus burden in the LAD graft with a subtotal lesion. After stenting he had downstream embolization and no reflow. I placed nicardipine and Aggrastat in the graft. His troponin went up afterwards not unexpectedly. The echo revealed an ejection fraction of 45%. He was being prepared for discharge couple days ago became confused, disoriented and delirious. Psychiatry saw him. He was still very confused and agitated yesterday. This morning he seems better and is oriented. He wants to go home. He has not been out of bed. Medications: Reviewed: Yes Vitals/I&O/Wt Last Vital Signs Temp 98.5 F 12/06/19 02:11 Pulse 83 12/06/19 05:02 Resp 29 H 12/06/19 05:02 BP 98/60 12/06/19 05:02 Pulse Ox 95 12/06/19 05:02 12/05/19 12/06/19 12/06/19 22:59 06:59 14:59 Intake Total 170 / 250 Output Total 750 / 750 800 / 1550 Balance -580 / -500 -800 / -1300 Physical Exam Narrative: EXAM NARRATIVE: GENERAL: In general he is sitting up trying to eat breakfast in no distress HEENT: Exam within normal limits. NECK: Supple without jugular vein distention. The carotid upstroke is normal without bruits. BACK: Exam normal. LUNGS: Clear. HEART: Regular rate and rhythm. ABDOMEN: Benign without organomegaly or tenderness. EXTREMITIES: No edema. NEUROLOGIC: Exam normal. Slightly shaky but oriented SKIN: Unremarkable. 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: Status: Acute Code(s): I25.810 - Atherosclerosis of coronary artery bypass graft(s) without angina pectoris (6) CAD (coronary artery disease): Status: Acute Code(s): I25.10 - Atherosclerotic heart disease of eagle coronary artery without angina pectoris (7) Hx of CABG: Status: Acute Code(s): Z95.1 - Presence of aortocoronary bypass graft (8) Noncompliance: Status: Acute Code(s): Z91.19 - Patient's noncompliance with other medical treatment and regimen (9) COPD (chronic obstructive pulmonary disease): Status: Acute Code(s): J44.9 - Chronic obstructive pulmonary disease, unspecified (10) History of heart artery stent: Status: Acute Code(s): Z95.5 - Presence of coronary angioplasty implant and graft Additional A&P Information His delirium seems to be resolving. He is not ready to go home yet. We need to get him up and around and make sure his medications are appropriate. As long as nothing else goes wrong he could be discharged tomorrow. He appears to be on the correct medications that includes aspirin, Plavix and a beta-edy. I do not see a statin. 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
[2019-12-06 07:39] LABS: Alanine Aminotransferase 17 U/L (0-41); Albumin Level 3.5 g/dL (3.5-5.2); Alkaline Phosphatase 62 IU/L (40-130); Aspartate Amino Transferase 32 U/L (0-40); Blood Urea Nitrogen 6 mg/dL (8-23); Calcium 8.9 mg/dL (8.5-10.5); Carbon Dioxide 21 mmol/L (22-29); Chloride 100 mmol/L (98-107); Globulin 3.3 g/dL (1.3-4.6); Glomerular Filtration Rate 219.4 mL/min (90-130); Glucose 92 mg/dL (65-115); Osmolality Calculated 271 mOsm/kg (285-295); Sodium 133 mmol/L (136-145); Total Protein 6.8 g/dL (6.6-8.7)
--- NOTE | 2019-12-06 08:14 | P.PN_ITS ---
Subjective Subjective: Interval history: This morning patient denies shortness of breath or chest pain. He admits seeing things that are not there. He again absolutely denied drinking alcohol or using illicit drugs. Patient noted to have 600 mL in his bladder on scan and Taylor catheter was plac ed. I have discussed with Dr. Simmons this morning and elevated troponin is expected given patient's burden of clot in his venous graft which was treated with medications and expected to have downstream infarction. Medications: Reviewed: Yes Medication Review Details: Current Medications Acetaminophen (Tylenol) 650 mg PO Q6H PRN PRN Reason: Mild/Mod Pain Or Temp >/= 101 Aspirin (Aspirin Ec) 81 mg PO DAILY RACHEL Atorvastatin Calcium (Lipitor) 40 mg PO BEDTIME RACHEL Bisacodyl (Dulcolax) 10 mg PO DAILY PRN PRN Reason: CONSTIPATION Nitroglycerin/Dextrose (Nitroglycerin Drip) 50 mg in 250 mls @ 0 mls/hr IV .Q0M RACHEL; Protocol Sodium Chloride (Sodium Chloride 0.9%) 1,000 mls @ 100 mls/hr IV .Q10H RACHEL Last Admin: 12/02/19 23:18 Dose: Not Given Documented by: Lactated Ringer's (Lactated Ringers) 1,000 mls @ 50 mls/hr IV .Q20H [facility] Last Admin: 12/02/19 23:10 Dose: 50 mls/hr Documented by: Heparin Sodium/Sodium Chloride (Heparin Drip) 25,000 unit in 500 mls @ 15.785 mls/hr IV .Q24H [facility] Last Admin: 12/02/19 23:10 Dose: 12.16 unit/kg/hr, 16 mls/hr Documented by: Levalbuterol HCl (Xopenex) 0.63 mg INHALATION Q6H.RESPIRATORY RACHEL Last Admin: 12/03/19 09:05 Dose: 0.63 mg Documented by: Morphine Sulfate (Morphine) 2 mg IVP Q4H PRN PRN Reason: SEVERE PAIN Last Admin: 12/03/19 08:23 Dose: 2 mg Documented by: Ondansetron HCl (Zofran) 4 mg IVP Q8H PRN PRN Reason: vomiting, or N/V if npo Last Admin: 12/03/19 08:24 Dose: 4 mg Documented by: Vitals/I&O/Wt Last Vital Signs Temp 98.5 F 12/06/19 02:11 Pulse 83 12/06/19 05:02 Resp 29 H 12/06/19 05:02 BP 98/60 12/06/19 05:02 Pulse Ox 95 12/06/19 05:02 12/05/19 12/06/19 12/06/19 22:59 06:59 14:59 Intake Total 170 / 250 Output Total 750 / 750 800 / 1550 Balance -580 / -500 -800 / -1300 Physical Exam Const: COMMON NORMALS: no apparent distress and oriented x3 Resp: COMMON NORMALS: normal respiratory effort and clear to auscultation bilaterally AUSCULTATION: clear to auscultation bilaterally Cardio: COMMON NORMALS: regular rate, regular rhythm and S2 normal heart sound RATE: regular rate RHYTHM: regular rhythm HEART SOUNDS: S2 normal OTHER: No lower extremity edema GI: COMMON NORMALS: normal to inspection, nondistended, normoactive bowel sounds, soft to palpation and non-tender PALPATION: Yes soft Neuro: COMMON NORMALS: oriented x3 and no focal motor deficits Data : 12/06/19 07:03 12/06/19 07:03 A&P Assessment and plan (1) Non-ST elevation NC (NSTEMI): Continue current monitoring and treatment and if patient remains stable we will likely be able to dismiss him home tomorrow. Status: Acute Code(s): I21.4 - Non-ST elevation (NSTEMI) myocardial infarction (2) Abuse of smoked substance: Discussed extensively regarding importance of smoking cessation. Patient voiced understanding and reports that he will definitely quit. He does not want any pharmacological help. Status: Acute Code(s): F18.10 - Inhalant abuse, uncomplicated (3) COPD (chronic obstructive pulmonary disease): COPD exacerbation resolved. Continue levalbuterol. Status: Acute Code(s): J44.9 - Chronic obstructive pulmonary disease, unspecified Additional A&P Information Medical noncompliance. Benign prostatic hyperplasia. Acute delirium, improved Urinary retention. We will start patient on Flomax if blood pressure permits. Patient will need to have Taylor catheter in place with outpatient follow-up with urology. We will get the patient up and walking. Once mental status improves we could consider discharging patient home but at this point we will continue close ICU monitoring. Attestations Medical Necessity Statement*: Patient was delirium as well as significant urinary retention and recent NC requires close ICU monitoring and treatment due to risk of deterioration. Coding Level of Care Code Acute Inventory Analyst for Aden Fernandez Diagnoses Non-ST elevation NC (NSTEMI) I21.4 Abuse of smoked substance F18.10 COPD (chronic obstructive pulmonary disease) J44.9
--- NOTE | 2019-12-06 09:56 | PC.CHAP ---
Pastoral Care Encounter/Spiritual Assessment Type of Contact [] Declined soft hat binder visit [] Patient/Family/Request visit [] Outpatient visit [] Follow-up visit [] Physician referral [] Code/Alert [x] Routine visit [] Staff referral [] Actively dying [x] Patient sleeping [] Family support [] [] Out of room [] Palliative care [] [] Receiving care in room [] Pre-surgical visit [] Trauma [] Long length of stay [x] ICU visit [] Other: Relational/Emotional Strength [] Patient feels connected with others/family/visitors/staff [] Distress [] Loneliness/isolation [] Abandonment Spirituality of Patient [] Person of Barbara [] Attends Sikhism of their Barbara [] Believes in Prayer [] Reads Bible or Gnosticist materials [] There are Spiritual issues to be addressed Md Do Resident Urgent Care Interventions [] Prayer [] Active listening [] Non-anxious presence [] Spiritual/emotional support [] Crisis/trauma care [] Spiritual counseling [] Bereavement support [] Provided bereavement packet [] Provided Bible/devotional materials [] Provided toy/stuffed animal, coloring book to patient or family member [] Provided Communion [] Anointing/[place] [] Salvation [x] Completed spiritual assessment [] Other: Impact on Illness or Injury [] Angry [] Fearful [] Anxious [] Often cries [] Exhaustion [] Unable to work [] Unable to attend sabianism [] Unable to walk/stand [] Unable to read [] Unable to drive [] Unable to eat/drink [] Unable to sleep [] Unable to be with family [] Patient intubated [] Other: Summary patient resting well. Staff present Time spent with patient
[2019-12-06] MEDS: folic acid 1 mg Tablet PO (10:06)
[2019-12-06] MEDS: aspirin 81 mg EC Tablet PO (10:07)
[2019-12-06] MEDS: metoprolol tartrate 25 mg Tablet 12.5 MG PO ×2 (10:07→20:54)
[2019-12-06] MEDS: clopidogrel 75 mg Tablet PO (10:07)
[2019-12-06] MEDS: multivitamin therapeutic Tablet 1 TAB PO (10:07)
[2019-12-06] MEDS: thiamine 100 mg Tablet PO (10:07)
--- NOTE | 2019-12-06 17:46 | PC.NURSE ---
alert and oriented cooperative at this time sitter discontinued
[2019-12-06] MEDS: atorvastatin 40 mg Tablet PO (20:45)
[2019-12-06] MEDS: OLANZapine ODT 5 MG TABLET PO (20:45)
[2019-12-07] VITALS (17 sets, daily range): BP systolic 92–122; BP diastolic 54–81; PULSE 65–97; RESP 16–30; TEMP 36.4–36.8; O2SAT 93–96
[2019-12-07] MEDS: levalbuterol 0.63 mg/3 mL Neb INHALATION ×2 (03:21→09:02)
[2019-12-07 04:22] LABS: Basophils % 0.3 %; Eosinophils # 0.3 10^3/uL (0.0-0.8); Eosinophils % 3.6 %; Hematocrit 40.3 % (42.0-52.0); Hemoglobin 13.7 g/dL (11.7-16.6); Lymphocytes # 2.6 10^3/uL (0.8-4.8); Lymphocytes % 29.3 %; Mean Corpuscular Hemoglobin 32.1 pg (28.0-34.0); Mean Corpuscular Volume 94.4 fL (80-94); Mean Platelet Volume 10.6 fL (7.4-10.4); Monocytes # 0.8 10^3/uL (0.2-0.9); Monocytes % 8.9 %; Neutrophils # 5.1 10^3/uL (1.8-7.7); Neutrophils % 57.2 %; Nucleated Red Blood Cells % 0 %; Platelet Count 239 10^3/cmm (130-400); Red Blood Count 4.27 10^6/uL (4.1-5.3); Red Cell Distribution Width 13.2 % (12.1-15.1); White Blood Count 8.9 10^3/uL (4.0-10.0)
[2019-12-07 04:46] LABS: Alanine Aminotransferase 17 U/L (0-41); Albumin Level 3.4 g/dL (3.5-5.2); Alkaline Phosphatase 60 IU/L (40-130); Aspartate Amino Transferase 28 U/L (0-40); Blood Urea Nitrogen 8 mg/dL (8-23); Calcium 8.9 mg/dL (8.5-10.5); Carbon Dioxide 25 mmol/L (22-29); Chloride 105 mmol/L (98-107); Globulin 3.2 g/dL (1.3-4.6); Glomerular Filtration Rate 219.4 mL/min (90-130); Glucose 98 mg/dL (65-115); Osmolality Calculated 282 mOsm/kg (285-295); Sodium 138 mmol/L (136-145); Total Bilirubin 0.6 mg/dL (0.15-1.2); Total Protein 6.6 g/dL (6.6-8.7)
--- NOTE | 2019-12-07 06:05 | PC.NURSE ---
SHIFT SUMMARY PT HAS REMAINED ALERT AND ORIENTATED. PT LUNGS HAVE SOME WHEEZES. PT HAS HAD ADEQUATE URINE OUTPUT. PT HAS NOT HAD BOUTS OF CONFUSION THUS FAR. PT VITAL SIGNS HAVE REMAINED WNL, PT HAS BEEN AFEBRILE. PT THOUGHT HIS CATHETER WAS LEAKING, WAS ASSESSED AND CATHETER REMAINS PATENT. PT HAS BEEN NEGATIVE ON CIWA THROUGH OUT THE WHOLE SHIFT.
[2019-12-07] MEDS: folic acid 1 mg Tablet PO (08:34)
[2019-12-07] MEDS: multivitamin therapeutic Tablet 1 TAB PO (08:35)
[2019-12-07] MEDS: metoprolol tartrate 25 mg Tablet 12.5 MG PO (08:35)
[2019-12-07] MEDS: thiamine 100 mg Tablet PO (08:35)
[2019-12-07] MEDS: aspirin 81 mg EC Tablet PO (08:35)
[2019-12-07] MEDS: clopidogrel 75 mg Tablet PO (08:35)
--- NOTE | 2019-12-07 09:08 | PM.PN ---
Subjective Subjective: Interval history: Time he is unchanged. He still has a Taylor catheter in. No shortness of breath. No chest pain. He wants to go home. Medications: Reviewed: Yes Vitals/I&O/Wt Last Vital Signs Temp 98.3 F 12/07/19 02:00 Pulse 90 12/07/19 09:02 Resp 16 12/07/19 09:02 BP 122/81 12/07/19 07:41 Pulse Ox 96 12/07/19 09:02 12/06/19 12/07/19 12/07/19 22:59 06:59 14:59 Intake Total 400 / 1050 Output Total 800 / 1250 750 / 2000 Balance -400 / -200 -750 / -950 Physical Exam Narrative: EXAM NARRATIVE: GENERAL: In general he looks and feels well HEENT: Exam within normal limits. NECK: Supple without jugular vein distention. The carotid upstroke is normal without bruits. BACK: Exam normal. LUNGS: Clear. HEART: Regular rate and rhythm. ABDOMEN: Benign without organomegaly or tenderness. EXTREMITIES: No edema. NEUROLOGIC: Exam normal. SKIN: Unremarkable. Data : 12/07/19 03:15 12/07/19 03:15 A&P Assessment and plan (1) Noncompliance: Status: Acute Code(s): Z91.19 - Patient's noncompliance with other medical treatment and regimen (2) Hx of CABG: Status: Acute Code(s): Z95.1 - Presence of aortocoronary bypass graft (3) History of heart artery stent: Status: Acute Code(s): Z95.5 - Presence of coronary angioplasty implant and graft (4) Delirium due to multiple etiologies, acute, mixed level of activity: Status: Acute Code(s): F05 - Delirium due to known physiological condition (5) Non-ST elevation [place] (NSTEMI): Status: Acute Code(s): I21.4 - Non-ST elevation (NSTEMI) myocardial infarction (6) Abuse of smoked substance: Status: Acute Code(s): F18.10 - Inhalant abuse, uncomplicated (7) Benign essential hypertension with target blood pressure below 140/90: Status: Acute Code(s): I10 - Essential (primary) hypertension (8) 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 He needs to be able to urinate before he goes home. Medications should be aspirin, Plavix, beta-edy and statin just as prescribed. He should follow-up with our nurse practitioner in a week to [address] Palm in 2 or 3 months. 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
--- NOTE | 2019-12-07 09:16 | P.PN_ITS ---
Subjective Subjective: Interval history: Patient reports doing well today. We again discussed regarding potential use of illicit drugs and patient absolutely refused. 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 He did admit to using methamphetamines 1 year ago. He has significant underlying lung disease and appears to be requiring breathing treatments but does not want to have nebulized treatments at home. He wants to go home as he reports feeling well. Taylor catheter was removed this morning and we will make sure patient can urinate before discharging home otherwise we will need to place Taylor catheter back with outpatient follow-up with Dr. Camarena. Medications: Reviewed: Yes Medication Review Details: Current Medications Acetaminophen (Tylenol) 650 mg PO Q6H PRN PRN Reason: Mild/Mod Pain Or Temp >/= 101 Aspirin (Aspirin Ec) 81 mg PO DAILY RACHEL Atorvastatin Calcium (Lipitor) 40 mg PO BEDTIME RACHEL Bisacodyl (Dulcolax) 10 mg PO DAILY PRN PRN Reason: CONSTIPATION Nitroglycerin/Dextrose (Nitroglycerin Drip) 50 mg in 250 mls @ 0 mls/hr IV .Q0M RACHEL; Protocol Sodium Chloride (Sodium Chloride 0.9%) 1,000 mls @ 100 mls/hr IV .Q10H RACHEL Last Admin: 12/02/19 23:18 Dose: Not Given Documented by: Lactated Ringer's (Lactated Ringers) 1,000 mls @ 50 mls/hr IV .Q20H RACHEL Last Admin: 12/02/19 23:10 Dose: 50 mls/hr Documented by: Heparin Sodium/Sodium Chloride (Heparin Drip) 25,000 unit in 500 mls @ 15.785 mls/hr IV .Q24H [facility] Last Admin: 12/02/19 23:10 Dose: 12.16 unit/kg/hr, 16 mls/hr Documented by: Levalbuterol HCl (Xopenex) 0.63 mg INHALATION Q6H.RESPIRATORY RACHEL Last Admin: 12/03/19 09:05 Dose: 0.63 mg Documented by: Morphine Sulfate (Morphine) 2 mg IVP Q4H PRN PRN Reason: SEVERE PAIN Last Admin: 12/03/19 08:23 Dose: 2 mg Documented by: Ondansetron HCl (Zofran) 4 mg IVP Q8H PRN PRN Reason: vomiting, or N/V if npo Last Admin: 12/03/19 08:24 Dose: 4 mg Documented by: Vitals/I&O/Wt Last Vital Signs Temp 98.3 F 12/07/19 02:00 Pulse 90 12/07/19 09:02 Resp 16 12/07/19 09:02 BP 122/81 12/07/19 07:41 Pulse Ox 96 12/07/19 09:02 12/06/19 12/07/19 12/07/19 22:59 06:59 14:59 Intake Total 400 / 1050 Output Total 800 / 1250 750 / 2000 Balance -400 / -200 -750 / -950 Physical Exam Const: COMMON NORMALS: no apparent distress and oriented x3 EXAM LIMITATIONS: no altered mental status GENERAL APPEARANCE: cooperative, comfortable and well developed ORIENTATION/CONSCIOUSNESS: Yes awake, Yes oriented to person, Yes oriented to place and Yes oriented to time HENMT: COMMON NORMALS: moist oral mucous membranes and oropharynx normal FACE & SINUS: normal facial exam NOSE: nares normal EXTERNAL EAR: Yes no preauricular adenopathy MOUTH: oral and palatal mucosa normal, lip normal and tongue normal THROAT: posterior oropharynx normal Eye: COMMON NORMALS: EOMs intact bilaterally and conjunctivae normal GENERAL EYE: normal appearance of both eyes CONJUNCTIVA: Yes conjunctivae normal SCLERA: sclerae normal Neck/C-Spine: COMMON NORMALS: no lymphadenopathy, supple and no meningeal signs GENERAL: Yes normal visual inspection, Yes trachea midline and No JVD Lymph: LYMPHATIC: no lymphadenopathy noted Chest: COMMONS NORMALS: inspection of chest normal Resp: COMMON NORMALS: normal respiratory effort and clear to auscultation bilaterally EFFORT & INSPECTION: Yes able to speak in complete sentences AUSCULTATION: clear to auscultation bilaterally OTHER: Very minimal occasional expiratory wheezing Cardio: COMMON NORMALS: regular rate, regular rhythm and S2 normal heart sound RATE: regular rate RHYTHM: regular rhythm HEART SOUNDS: S2 normal OTHER: No lower extremity edema GI: COMMON NORMALS: normal to inspection, nondistended, normoactive bowel sounds, soft to palpation and non-tender PALPATION: Yes soft : COMMON NORMALS: Yes no CVA tenderness and Yes external exam normal BLADDER/KIDNEY EXAM: Yes no CVA tenderness Back/Pelvis: COMMON NORMALS: no CVA tenderness and thoracic and lumbar spine normal to inspection Extremity: COMMON NORMALS: no pedal edema Neuro: COMMON NORMALS: oriented x3 and no focal motor deficits SENSORIUM/ORIENTATION: Yes oriented to person, Yes oriented to place and Yes oriented to time MENINGEAL SIGNS: Yes no meningeal signs OTHER: Oriented to self only. Word salad speech Psych: COMMON NORMALS: mental status grossly normal, thought process normal, cooperative and speech normal SPEECH: Yes normal speech THOUGHT PROCESS: normal thought process OTHER: Paranoid Skin: COMMON NORMALS: no rashes or lesions noted GENERAL SKIN EXAM: no rashes or lesions noted Data : 12/07/19 03:15 12/07/19 03:15 A&P Assessment and plan (1) Non-ST elevation [place] (NSTEMI): Continue current monitoring and treatment and if patient remains stable we will likely be able to dismiss him home tomorrow. Status: Acute Code(s): I21.4 - Non-ST elevation (NSTEMI) myocardial infarction (2) Abuse of smoked substance: Discussed extensively regarding importance of smoking cessation. Patient voiced understanding and reports that he will definitely quit. He does not want any pharmacological help. Status: Acute Code(s): F18.10 - Inhalant abuse, uncomplicated (3) COPD (chronic obstructive pulmonary disease): COPD exacerbation resolved. Continue levalbuterol. Status: Acute Code(s): J44.9 - Chronic obstructive pulmonary disease, unspecified Additional A&P Information Medical noncompliance. Benign prostatic hyperplasia with urinary retention. Acute delirium, improved We will start patient on Flomax and give first dose now. We will get the patient up and walking and if he is able to urinate we will dismiss him home. Discussed with Dr. Rodarte this morning who saw patient earlier today and okay for patient to be dismissed home from psychiatric standpoint. Dr. Rodarte recommends to continue Zyprexa. Please refer to discharge summary done 2 days ago. Attestations Medical Necessity Statement*: Patient is being dismissed home. Coding Level of Care Code Acute Five Piece Expansion Maker Hand for Aden Fernandez Diagnoses Non-ST elevation [place] (NSTEMI) I21.4 Abuse of smoked substance F18.10 COPD (chronic obstructive pulmonary disease) J44.9
--- NOTE | 2019-12-07 09:31 | PM.NPN ---
Subjective NPU Subjective: Interval history: The patient is now contests, oriented and Dr. Bah is planning to discharge him today. The patient understands this and has a follow-up care plan with Dr. Simmons. He hasn't any suicidal or homicidal ideation plan or intent. He probably never did. The question is whether there is any psychiatric contraindication to discharge. I have evaluated him and consulted with nursing staff as well as with Dr. Bah. Medications: Reviewed: Yes Medication Review Details: Current Medications Acetaminophen (Tylenol) 650 mg PO Q6H PRN PRN Reason: Mild/Mod Pain Or Temp >/= 101 Aspirin (Aspirin Ec) 81 mg PO DAILY RACHEL Last Admin: 12/07/19 08:35 Dose: 81 mg Documented by: Atorvastatin Calcium (Lipitor) 40 mg PO BEDTIME RACHEL Last Admin: 12/06/19 20:45 Dose: 40 mg Documented by: Bisacodyl (Dulcolax) 10 mg PO DAILY PRN PRN Reason: CONSTIPATION Bismuth Subsalicylate ([place] Bismuth) 15 ml PO Q4H PRN PRN Reason: DIARRHEA Last Admin: 12/04/19 12:40 Dose: 15 ml Documented by: Clopidogrel Bisulfate (Plavix) 75 mg PO DAILY RACHEL Last Admin: 12/07/19 08:35 Dose: 75 mg Documented by: Folic Acid (Folic Acid) 1 mg PO DAILY RACHEL Last Admin: 12/07/19 08:34 Dose: 1 mg Documented by: Sodium Chloride (Sodium Chloride 0.9%) 1,000 mls @ 100 mls/hr IV .Q10H RACHEL Last Admin: 12/03/19 16:14 Dose: Not Given Documented by: Tirofiban/Sodium Chloride (Aggrastat) 12.5 mg in 250 mls @ 0 mls/hr IV .Q0M RACHEL; Protocol Levalbuterol HCl (Xopenex) 0.63 mg INHALATION Q6H.RESPIRATORY RACHEL Last Admin: 12/07/19 09:02 Dose: 0.63 mg Documented by: Lorazepam (Ativan) 2 mg IM Q4H PRN; Protocol PRN Reason: ALCOWD Lorazepam (Ativan) 2 mg IVP PRN PRN; Protocol PRN Reason: WITHDRAWAL Last Admin: 12/05/19 22:35 Dose: 2 mg Documented by: Lorazepam (Ativan) 2 mg PO Q4H PRN; Protocol PRN Reason: WITHDRAWAL Metoprolol Tartrate (Lopressor) 12.5 mg PO BID [facility] Last Admin: 12/07/19 08:35 Dose: 12.5 mg Documented by: Metoprolol Tartrate (Metoprolol Tartrate) 5 mg IV Q4H PRN PRN Reason: HEART RATE-HIGH Multivitamins Therapeutic (Multivitamin Tab) 1 tab PO DAILY [facility] Last Admin: 12/07/19 08:35 Dose: 1 tab Documented by: Nitroglycerin (Nitrostat) 0.4 mg SUBLINGUAL Q5M PRN PRN Reason: CHEST PAIN Olanzapine (Zyprexa Zydis) 5 mg PO BEDTIME [facility] Last Admin: 12/06/19 20:45 Dose: 5 mg Documented by: Ondansetron HCl (Zofran) 4 mg IVP Q8H PRN PRN Reason: vomiting, or N/V if npo Last Admin: 12/03/19 08:24 Dose: 4 mg Documented by: Tamsulosin HCl (Flomax) 0.4 mg PO DAILY [facility] Thiamine Mononitrate (Vitamin B-1) 100 mg PO DAILY [facility] Last Admin: 12/07/19 08:35 Dose: 100 mg Documented by: Mental Status Exam MSE Comments: The patient is found awake in ICU bay 03. He is oriented. He is still a bit weak and weary. Mood is dysphoric and affect is mildly flat. He has some visual hallucinations but is not bothered by them. They are probably lingering vestiges of delirium. Cognition: Patient Appearance: Appropriate Level of Consciousness: Awake and Appropriate Attention Span Ability: Capable of Focused Attention Level of Alertness: Alert and Sleepy Patient Cognition Impaired: No Ability to Follow Directions: Good Executive Function Ability: No Deficits Noted Patient Orientation (long list): Person, Place, Time and Year Comprehension Ability: No Impairment Memory Description: Intact Receptive Language Skills Age Appropriate: Yes Hallucination Type: Visual Delusion Description: Not Present Perceptual Disturbances: Hallucinations Thought Process: Appropriate Thought Content: Intact Vitals/I&O/Wt Last Vital Signs Temp 98.3 F 12/07/19 02:00 Pulse 90 12/07/19 09:02 Resp 16 12/07/19 09:02 BP 122/81 12/07/19 07:41 Pulse Ox 96 12/07/19 09:02 12/06/19 12/07/19 12/07/19 23:59 07:59 15:59 Intake Total 400 Output Total 800 750 Balance -400 -750 Data NPU : 12/07/19 03:15 12/07/19 03:15 A&P Additional A&P Information Assessment and plan (1) Non-ST elevation [place] (NSTEMI): Continue current monitoring and treatment and patient has remained stable we will be able to dismiss him home. (2) Abuse of smoked substance: Discussed extensively regarding importance of smoking cessation. Patient voiced understanding and reports that he will definitely quit. He does not want any pharmacological help. (3) COPD (chronic obstructive pulmonary disease): COPD exacerbation resolved. Continue levalbuterol. Additional A&P Information Medical noncompliance. Benign prostatic hyperplasia with urinary retention. Acute delirium, improved. Dr. Bah plans to discharge the patient today as above. I see no psychiatric contraindication to discharge given the follow-up plan Involuntary Hold Information 96 Hour Hold: 96 Hour Involuntary Admission: No 21 Day Hold: 21 Day Involuntary Hold: No Other Hold: Other Involuntary Hold (indicate): No Attestations NPU Medical Necessity Statement*: The patient is ready for discharge today. Coding Level of Care Code Acute Security Systems Installer for Aden Fernandez
[2019-12-07] MEDS: tamsulosin 0.4 mg Capsule PO (09:39)
--- NOTE | 2019-12-07 10:50 | PC.SOCIAL ---
IMM Updated Updated pt on Pg 2 IMM & provided pt a copy. No questions voiced. Signed, dated, & timed the copy in chart.
--- NOTE | 2019-12-07 12:04 | PC.NURSE ---
Discharge Pt and daughter was given discharge instructions and meds. Daughter took pt home in private vehicle.
== END 2019-12-07 12:04 | disposition home or self-care (01) | DRG 247 ==
LOC: ER 12:02 → ICU 21:05
PROVIDERS: Internal Medicine Cardiovascular Disease; Physician Assistant; Admitting Provider Internal Medicine; Emergency Provider Emergency Medicine; Visit Provider Internal Medicine
PROC: 027034Z Dilation of Coronary Artery, One Artery with Drug-eluting Intraluminal Device, Percutaneous Approach (ICD-10-PCS; principal; 2019-12-03 18:30)
PROC: 027034Z Dilation of Coronary Artery, One Artery with Drug-eluting Intraluminal Device, Percutaneous Approach (ICD-10-PCS; 2019-12-03 18:30)
DX: I21.4 Non-ST elevation (NSTEMI) myocardial infarction (principal); J44.1 Chronic obstructive pulmonary disease with (acute) exacerbation; I25.810 Atherosclerosis of coronary artery bypass graft(s) without angina pectoris; Z95.1 Presence of aortocoronary bypass graft; Z95.5 Presence of coronary angioplasty implant and graft; F18.10 Inhalant abuse, uncomplicated; I10 Essential (primary) hypertension; Z79.899 Other long term (current) drug therapy; F17.210 Nicotine dependence, cigarettes, uncomplicated; Z91.19 Patient's noncompliance with other medical treatment and regimen; R33.9 Retention of urine, unspecified; R41.0 Disorientation, unspecified; Z79.82 Long term (current) use of aspirin; Z79.51 Long term (current) use of inhaled steroids; Z79.02 Long term (current) use of antithrombotics/antiplatelets
CPT/HCPCS: 12345; 36415; 71045; 80048; 80053; 80061; 81003; 83036; 83735; 84443; 84484; 85025; 85730; 92937; 93005; 93306; 93308; 93455; 94640; 96372; 96374; 96375; 97116; 97161; 99282; C1725; C1769; C1874; C1887; C1894; J1630; J1644; J1650; J2001; J2060; J2250; J2270; J2405; J3010; J3246; J3411; J3490; J7030; J7614; Q9967

== ENCOUNTER → 2019-12-13 12:15 | Outpatient (BNVA) | payer SELFPAY | PROVIDERS: Visit Provider Nurse Practitioner Family | DX: I25.10 Atherosclerotic heart disease of native coronary artery without angina pectoris (principal); I10 Essential (primary) hypertension | CPT/HCPCS: 80048 ==

== ENCOUNTER 2020-12-02 17:13 | Inpatient (IN) | payer MEDICARE, SELFPAY ==
[2020-12-02] VITALS (7 sets, daily range): BP systolic 109–124; BP diastolic 69–83; PULSE 67–88; RESP 14–23; TEMP 36.6–36.7; O2SAT 94–99; BMI 25.7
--- NOTE | 2020-12-02 17:39 | XR_ITS ---
WS: [id number] Portable AP upright chest, 12/02/2020 Clinical Data: chest pain Comparison: Portable chest, 12/05/2019. Findings: No nodules, masses or effusions are seen. The heart is slightly enlarged. The pulmonary vas cularity is not increased. No pneumonia or pneumothorax is seen. The aortic arch and descending aorta show calcification and tortuosity. Midline sternotomy sutures are present. 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 The diaphragms are flattened. XR/XR chest 1V portable [id number] Impression: Atherosclerosis and hyperinflation.
--- NOTE | 2020-12-02 17:54 | ED_ITS ---
Documented by User: Handy Harvey DO 12/05/20 08:12 HPI - Chest Pain General: Chief Complaint: Chest Pain Stated Complaint: Chest Pain/Took 3 Nitro Time Seen by Provider: 12/02/20 17:38 History of Present Illness: HPI narrative: 60-year-old male who according to cardiology notes is quite noncompliant. Comes in complaining of chest pain has had intermittently for the last several days began while it was rest prior to that he was eliciting it by any activity states if he walking 50 feet he would start to get chest pain. He took 3 nitros prior to arrival with only minimal relief of pain. Pain is central to his chest radiates into the neck neck and to the left shoulder and arm. He states is similar to pain he has had previously. MD complaint: chest pain Pertinent past history: coronary artery disease Onset (ago): day(s) Timing of current episode: episodic Prior episodes: Yes Onset: during exertion Pain location: left chest Pain radiation: left arm, neck and left shoulder Quality: heaviness Relieving factors: nitroglycerin and rest Exacerbating factors: exertion Associated symptoms: Reports diaphoresis, dyspnea and palpitations; Deny abdominal pain, fever(s), leg edema, nausea, sense of impending doom, syncope or vomiting Treatment prior to arrival: aspirin and nitroglycerin Review of Systems Const: Reports: diaphoresis ENMT: Denies: throat pain, ear or mastoid pain, nasal discharge or nasal congestion Card: Reports: palpitations; Denies: syncope Resp: Reports: dyspnea GI: Denies: abdominal pain, nausea or vomiting : Denies: flank pain, dysuria, urinary frequency or urinary urgency Skin/Breast: Denies: rash or pruritus PFSH ED PFSH: Medical History Abuse of smoked substance 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 Started having heart problems in the 30s. No problems noted. Family/Other CAD (coronary artery disease) Many of his uncles and aunts on the paternal side had heart disease/heart attack in their 30s and 50s. His sister and brother both had coronary disease and coronary intervention in their 50s. Social History Smoking and tobacco status: current every day smoker cigarettes Packs smoked per day: 1.5 Years cigarettes smoked: 40 [ Other cigarette details: Currently he smokes less than half pack a day especially over the last 1 year. ] Alcohol intake: never Physical Exam Const: COMMON NORMALS: no acute distress GENERAL APPEARANCE: cooperative and comfortable ORIENTATION/CONSCIOUSNESS: Yes awake, Yes oriented to person, Yes oriented to place and Yes oriented to time HENMT: COMMON NORMALS: normocephalic, atraumatic and hearing grossly normal bilaterally HEAD & SCALP: normocephalic and atraumatic Eye: COMMON NORMALS: Equal, round and reactive pupils present, EOMs intact bilaterally, conjunctivae normal and no scleral icterus CONJUNCTIVA: Yes conjunctivae normal PUPIL: Yes Equal, round and reactive pupils present Neck/C-Spine: COMMON NORMALS: no JVD Resp: COMMON NORMALS: normal respiratory effort, No retractions, No use of accessory muscles and clear to auscultation bilaterally AUSCULTATION: clear to auscultation bilaterally Cardio: COMMON NORMALS: no JVD, regular rate, regular rhythm and No murmurs present (Cardio) RATE: regular rate RHYTHM: regular rhythm GI: COMMON NORMALS: Soft to palpation and No hepatosplenomegaly present AUSCULTATION: Yes normoactive bowel sounds PALPATION: Yes Soft to palpation, No Tenderness to palpation present (GI), No Guarding due to palpation present (GI) and Yes No hepatosplenomegaly present Extremity: COMMON NORMALS: normal to inspection, capillary refill normal, no clubbing, cyanosis or edema, no calf tenderness and no pedal edema Neuro: SENSORIUM/ORIENTATION: Yes oriented to person, Yes oriented to place and Yes oriented to time Skin: COMMON NORMALS: no rashes or lesions noted GENERAL SKIN EXAM: no rashes or lesions noted Course Vital Signs: Vital signs: Vital Signs Temperature 97.6 F 12/04/20 13:05 Pulse Rate 83 12/04/20 13:05 Respiratory Rate 16 12/04/20 13:05 Blood Pressure 103/65 12/04/20 13:05 Pulse Oximetry 95 12/04/20 13:05 MDM - Chest Pain MDM Narrative: Medical decision making narrative: Patient having angina. Is a known history of coronary disease. Discussed Dr. Heller anticipate admission. Care turned over to Dr. Heller see his notes for final diagnosis and disposition. Lab Data: Labs: Lab Results 12/02/20 12/02/20 12/02/20 Range/Units 17:58 17:58 17:58 WBC 10.6 H (4.0-10.0) 10^3/ uL RBC 4.64 (4.1-5.3) 10^6/u L Hgb 14.7 (11.7-16.6) g/dL Hct 43.5 (42.0-52.0) % MCV 93.8 (80-94) fL MCH 31.7 (28.0-34.0) pg MCHC 33.8 (30.0-36.0) g/dL RDW 12.6 (12.1-15.1) % Plt Count 268 (130-400) 10^3/c mm MPV 9.6 (7.4-10.4) fL Neut % (Auto) 75.6 % Lymph % (Auto) 16.4 % Chambers % (Auto) 5.4 % Eos % (Auto) 1.5 % Baso % (Auto) 0.3 % Neut # (Auto) 8.06 H (1.8-7.7) 10^3/u L Lymph # (Auto) 1.7 (0.8-4.8) 10^3/u L Chambers # (Auto) 0.6 (0.2-0.9) 10^3/u L Eos # (Auto) 0.2 (0.0-0.8) 10^3/u L Baso # (Auto) 0.0 (0.0-0.1) 10^3/u L Nucleated RBC % (a uto) 0 % Nucleated RBCs # 0.0 /100WBC PT (12.1-14.9) SECO NDS INR (0.8-1.2) Sodium 137 (136-145) mmol/L Potassium 4.6 (3.5-5.1) mmol/L Chloride 103 (98-107) mmol/L Carbon Dioxide 26 (22-29) mmol/L Anion Gap 12.6 (5-19) BUN 7 L (8-23) mg/dL Creatinine 0.8 (0.7-1.2) mg/dL GFR Calculation 98.3 (90-130) mL/min Glucose 102 (65-115) mg/dL Calculated Osmolal ity 282 L (285-295) mOsm/k g Calcium 8.8 (8.5-10.5) mg/dL Phosphorus (2.5-4.5) mg/dL Magnesium (1.7-2.3) mg/dL Total Bilirubin 0.3 (0.15-1.2) mg/dL AST 19 (0-40) U/L ALT 18 (0-41) U/L Alkaline Phosphata se 66 (40-130) IU/L Troponin T Gen 5 n g/L (0-15) ng/L Troponin T Baselin e 23 H (0-15) ng/L Troponin T 120 Min [place] (0-15) ng/L Delta Troponin T (0-10) ABS# Troponin T Hi Sens 6Hr (0-15) ng/L Troponin T Hi Sens 6Hr Delta (0-12) ng/L NT-Pro-B Natriuret Pep (0-125) pg/mL Total Protein 6.2 L (6.6-8.7) g/dL Albumin 3.8 (3.5-5.2) g/dL Globulin 2.4 (1.3-4.6) g/dL Triglycerides (0-150) mg/dL Cholesterol (0-200) mg/dL LDL Cholesterol, C alc (50-129) mg/dL HDL Cholesterol (60-100) mg/dL LDL/HDL Ratio (0.00-3.22) RATI O Cholesterol/HDL Ra kayy (1.0-5.00) mg/dL TSH (0.27-4.20) uIU/ mL 12/02/20 12/02/20 12/02/20 Range/Units 20:03 20:03 23:44 WBC (4.0-10.0) 10^3/ uL RBC (4.1-5.3) 10^6/u L Hgb (11.7-16.6) g/dL Hct (42.0-52.0) % MCV (80-94) fL MCH (28.0-34.0) pg MCHC (30.0-36.0) g/dL RDW (12.1-15.1) % Plt Count (130-400) 10^3/c mm MPV (7.4-10.4) fL Neut % (Auto) % Lymph % (Auto) % Chambers % (Auto) % Eos % (Auto) % Baso % (Auto) % Neut # (Auto) (1.8-7.7) 10^3/u L Lymph # (Auto) (0.8-4.8) 10^3/u L Chambers # (Auto) (0.2-0.9) 10^3/u L Eos # (Auto) (0.0-0.8) 10^3/u L Baso # (Auto) (0.0-0.1) 10^3/u L Nucleated RBC % (a uto) % Nucleated RBCs # /100WBC PT (12.1-14.9) SECO NDS INR (0.8-1.2) Sodium (136-145) mmol/L Potassium (3.5-5.1) mmol/L Chloride (98-107) mmol/L Carbon Dioxide (22-29) mmol/L Anion Gap (5-19) BUN (8-23) mg/dL Creatinine (0.7-1.2) mg/dL GFR Calculation (90-130) mL/min Glucose (65-115) mg/dL Calculated Osmolal ity (285-295) mOsm/k g Calcium (8.5-10.5) mg/dL Phosphorus (2.5-4.5) mg/dL Magnesium (1.7-2.3) mg/dL Total Bilirubin (0.15-1.2) mg/dL AST (0-40) U/L ALT (0-41) U/L Alkaline Phosphata se (40-130) IU/L Troponin T Gen 5 n g/L (0-15) ng/L Troponin T Baselin e (0-15) ng/L Troponin T 120 Min [place] 193.6 H (0-15) ng/L Delta Troponin T 170.6 H* (0-10) ABS# Troponin T Hi Sens 6Hr 564.6 H (0-15) ng/L Troponin T Hi Sens 6Hr Delta 541.6 H* (0-12) ng/L NT-Pro-B Natriuret Pep 212 H (0-125) pg/mL Total Protein (6.6-8.7) g/dL Albumin (3.5-5.2) g/dL Globulin (1.3-4.6) g/dL Triglycerides (0-150) mg/dL Cholesterol (0-200) mg/dL LDL Cholesterol, C alc (50-129) mg/dL HDL Cholesterol (60-100) mg/dL LDL/HDL Ratio (0.00-3.22) RATI O Cholesterol/HDL Ra kayy (1.0-5.00) mg/dL TSH (0.27-4.20) uIU/ mL 12/03/20 12/03/20 12/03/20 Range/Units 05:54 05:54 05:54 WBC 9.7 (4.0-10.0) 10^3/ uL RBC 4.90 (4.1-5.3) 10^6/u L Hgb 15.5 (11.7-16.6) g/dL Hct 45.4 (42.0-52.0) % MCV 92.7 (80-94) fL MCH 31.6 (28.0-34.0) pg MCHC 34.1 (30.0-36.0) g/dL RDW 12.5 (12.1-15.1) % Plt Count 261 (130-400) 10^3/c mm MPV 9.5 (7.4-10.4) fL Neut % (Auto) 58.9 % Lymph % (Auto) 32.5 % Chambers % (Auto) 6.1 % Eos % (Auto) 1.6 % Baso % (Auto) 0.2 % Neut # (Auto) 5.73 (1.8-7.7) 10^3/u L Lymph # (Auto) 3.2 (0.8-4.8) 10^3/u L Chambers # (Auto) 0.6 (0.2-0.9) 10^3/u L Eos # (Auto) 0.2 (0.0-0.8) 10^3/u L Baso # (Auto) 0.0 (0.0-0.1) 10^3/u L Nucleated RBC % (a uto) 0 % Nucleated RBCs # 0.0 /100WBC PT 13.10 (12.1-14.9) SECO NDS INR 0.97 (0.8-1.2) Sodium 135 L (136-145) mmol/L Potassium 3.8 (3.5-5.1) mmol/L Chloride 101 (98-107) mmol/L Carbon Dioxide 26 (22-29) mmol/L Anion Gap 11.8 (5-19) BUN 8 (8-23) mg/dL Creatinine 0.6 L (0.7-1.2) mg/dL GFR Calculation 137.0 H (90-130) mL/min Glucose 87 (65-115) mg/dL Calculated Osmolal ity 278 L (285-295) mOsm/k g Calcium 8.9 (8.5-10.5) mg/dL Phosphorus 4.1 (2.5-4.5) mg/dL Magnesium 1.8 (1.7-2.3) mg/dL Total Bilirubin 0.5 (0.15-1.2) mg/dL AST 116 H (0-40) U/L ALT 26 (0-41) U/L Alkaline Phosphata se 63 (40-130) IU/L Troponin T Gen 5 n g/L (0-15) ng/L Troponin T Baselin e (0-15) ng/L Troponin T 120 Min [place] (0-15) ng/L Delta Troponin T (0-10) ABS# Troponin T Hi Sens 6Hr (0-15) ng/L Troponin T Hi Sens 6Hr Delta (0-12) ng/L NT-Pro-B Natriuret Pep (0-125) pg/mL Total Protein 6.8 (6.6-8.7) g/dL Albumin 3.7 (3.5-5.2) g/dL Globulin 3.1 (1.3-4.6) g/dL Triglycerides (0-150) mg/dL Cholesterol (0-200) mg/dL LDL Cholesterol, C alc (50-129) mg/dL HDL Cholesterol (60-100) mg/dL LDL/HDL Ratio (0.00-3.22) RATI O Cholesterol/HDL Ra kayy (1.0-5.00) mg/dL TSH 3.10 (0.27-4.20) uIU/ mL 12/03/20 12/03/20 Range/Units 05:54 05:54 WBC (4.0-10.0) 10^3/ uL RBC (4.1-5.3) 10^6/u L Hgb (11.7-16.6) g/dL Hct (42.0-52.0) % MCV (80-94) fL MCH (28.0-34.0) pg MCHC (30.0-36.0) g/dL RDW (12.1-15.1) % Plt Count (130-400) 10^3/c mm MPV (7.4-10.4) fL Neut % (Auto) % Lymph % (Auto) % Chambers % (Auto) % Eos % (Auto) % Baso % (Auto) % Neut # (Auto) (1.8-7.7) 10^3/u L Lymph # (Auto) (0.8-4.8) 10^3/u L Chambers # (Auto) (0.2-0.9) 10^3/u L Eos # (Auto) (0.0-0.8) 10^3/u L Baso # (Auto) (0.0-0.1) 10^3/u L Nucleated RBC % (a uto) % Nucleated RBCs # /100WBC PT (12.1-14.9) SECO NDS INR (0.8-1.2) Sodium (136-145) mmol/L Potassium (3.5-5.1) mmol/L Chloride (98-107) mmol/L Carbon Dioxide (22-29) mmol/L Anion Gap (5-19) BUN (8-23) mg/dL Creatinine (0.7-1.2) mg/dL GFR Calculation (90-130) mL/min Glucose (65-115) mg/dL Calculated Osmolal ity (285-295) mOsm/k g Calcium (8.5-10.5) mg/dL Phosphorus (2.5-4.5) mg/dL Magnesium (1.7-2.3) mg/dL Total Bilirubin (0.15-1.2) mg/dL AST (0-40) U/L ALT (0-41) U/L Alkaline Phosphata se (40-130) IU/L Troponin T Gen 5 n g/L 2021 H* (0-15) ng/L Troponin T Baselin e (0-15) ng/L Troponin T 120 Min [place] (0-15) ng/L Delta Troponin T (0-10) ABS# Troponin T Hi Sens 6Hr (0-15) ng/L Troponin T Hi Sens 6Hr Delta (0-12) ng/L NT-Pro-B Natriuret Pep (0-125) pg/mL Total Protein (6.6-8.7) g/dL Albumin (3.5-5.2) g/dL Globulin (1.3-4.6) g/dL Triglycerides 134 (0-150) mg/dL Cholesterol 339 H (0-200) mg/dL LDL Cholesterol, C alc 277 H (50-129) mg/dL HDL Cholesterol 35 L (60-100) mg/dL LDL/HDL Ratio 7.91 H (0.00-3.22) RATI O Cholesterol/HDL Ra kayy 9.69 H (1.0-5.00) mg/dL TSH (0.27-4.20) uIU/ mL Discharge Plan Discharge Patient Disposition: Admitted As Inpatient Admit Provider: Román Reynaga Clinical Impression: Chest pain Condition: Stable Discharge Diet: Cardiac Discharge Activity: Increase activity as tolerated Coding Level of Care Code ED System Designer for Chg Fwd Exam Comprehensive Documented by User: Aurelia Heller MD 12/02/20 19:49 HPI - Chest Pain General: Chief Complaint: Chest Pain Stated Complaint: Chest Pain/Took 3 Nitro Time Seen by Provider: 12/02/20 17:38 PFSH ED PFSH: Medical History Abuse of smoked substance 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 Started having heart problems in the 30s. No problems noted. Family/Other CAD (coronary artery disease) Many of his uncles and aunts on the paternal side had heart disease/heart attack in their 30s and 50s. His sister and brother both had coronary disease and coronary intervention in their 50s. Social History Smoking and tobacco status: current every day smoker cigarettes Packs smoked per day: 1.5 Years cigarettes smoked: 40 [ Other cigarette details: Currently he smokes less than half pack a day especially over the last 1 year. ] Alcohol intake: never Course Vital Signs: Vital signs: Vital Signs Temperature 97.6 F 12/04/20 13:05 Pulse Rate 83 12/04/20 13:05 Respiratory Rate 16 12/04/20 13:05 Blood Pressure 103/65 12/04/20 13:05 Pulse Oximetry 95 12/04/20 13:05 MDM - Chest Pain MDM Narrative: Medical decision making narrative: Took patient over from Dr. Echavarria. Patient presents for chest pain initial acute EKG did show some ST depression in the lateral leads repeat EKG shows improvement. His initial troponin is 26. Spoke to hospitalist will admit to the cardiac stepdown. Patient's pain is improved here. Lab Data: Labs: Lab Results 12/02/20 12/02/20 12/02/20 Range/Units 17:58 17:58 17:58 WBC 10.6 H (4.0-10.0) 10^3/ uL RBC 4.64 (4.1-5.3) 10^6/u L Hgb 14.7 (11.7-16.6) g/dL Hct 43.5 (42.0-52.0) % MCV 93.8 (80-94) fL MCH 31.7 (28.0-34.0) pg MCHC 33.8 (30.0-36.0) g/dL RDW 12.6 (12.1-15.1) % Plt Count 268 (130-400) 10^3/c mm MPV 9.6 (7.4-10.4) fL Neut % (Auto) 75.6 % Lymph % (Auto) 16.4 % Chambers % (Auto) 5.4 % Eos % (Auto) 1.5 % Baso % (Auto) 0.3 % Neut # (Auto) 8.06 H (1.8-7.7) 10^3/u L Lymph # (Auto) 1.7 (0.8-4.8) 10^3/u L Chambers # (Auto) 0.6 (0.2-0.9) 10^3/u L Eos # (Auto) 0.2 (0.0-0.8) 10^3/u L Baso # (Auto) 0.0 (0.0-0.1) 10^3/u L Nucleated RBC % (a uto) 0 % Nucleated RBCs # 0.0 /100WBC PT (12.1-14.9) SECO NDS INR (0.8-1.2) Sodium 137 (136-145) mmol/L Potassium 4.6 (3.5-5.1) mmol/L Chloride 103 (98-107) mmol/L Carbon Dioxide 26 (22-29) mmol/L Anion Gap 12.6 (5-19) BUN 7 L (8-23) mg/dL Creatinine 0.8 (0.7-1.2) mg/dL GFR Calculation 98.3 (90-130) mL/min Glucose 102 (65-115) mg/dL Calculated Osmolal ity 282 L (285-295) mOsm/k g Calcium 8.8 (8.5-10.5) mg/dL Phosphorus (2.5-4.5) mg/dL Magnesium (1.7-2.3) mg/dL Total Bilirubin 0.3 (0.15-1.2) mg/dL AST 19 (0-40) U/L ALT 18 (0-41) U/L Alkaline Phosphata se 66 (40-130) IU/L Troponin T Gen 5 n g/L (0-15) ng/L Troponin T Baselin e 23 H (0-15) ng/L Troponin T 120 Min [place] (0-15) ng/L Delta Troponin T (0-10) ABS# Troponin T Hi Sens 6Hr (0-15) ng/L Troponin T Hi Sens 6Hr Delta (0-12) ng/L NT-Pro-B Natriuret Pep (0-125) pg/mL Total Protein 6.2 L (6.6-8.7) g/dL Albumin 3.8 (3.5-5.2) g/dL Globulin 2.4 (1.3-4.6) g/dL Triglycerides (0-150) mg/dL Cholesterol (0-200) mg/dL LDL Cholesterol, C alc (50-129) mg/dL HDL Cholesterol (60-100) mg/dL LDL/HDL Ratio (0.00-3.22) RATI O Cholesterol/HDL Ra kayy (1.0-5.00) mg/dL TSH (0.27-4.20) uIU/ mL 12/02/20 12/02/20 12/02/20 Range/Units 20:03 20:03 23:44 WBC (4.0-10.0) 10^3/ uL RBC (4.1-5.3) 10^6/u L Hgb (11.7-16.6) g/dL Hct (42.0-52.0) % MCV (80-94) fL MCH (28.0-34.0) pg MCHC (30.0-36.0) g/dL RDW (12.1-15.1) % Plt Count (130-400) 10^3/c mm MPV (7.4-10.4) fL Neut % (Auto) % Lymph % (Auto) % Chambers % (Auto) % Eos % (Auto) % Baso % (Auto) % Neut # (Auto) (1.8-7.7) 10^3/u L Lymph # (Auto) (0.8-4.8) 10^3/u L Chambers # (Auto) (0.2-0.9) 10^3/u L Eos # (Auto) (0.0-0.8) 10^3/u L Baso # (Auto) (0.0-0.1) 10^3/u L Nucleated RBC % (a uto) % Nucleated RBCs # /100WBC PT (12.1-14.9) SECO NDS INR (0.8-1.2) Sodium (136-145) mmol/L Potassium (3.5-5.1) mmol/L Chloride (98-107) mmol/L Carbon Dioxide (22-29) mmol/L Anion Gap (5-19) BUN (8-23) mg/dL Creatinine (0.7-1.2) mg/dL GFR Calculation (90-130) mL/min Glucose (65-115) mg/dL Calculated Osmolal ity (285-295) mOsm/k g Calcium (8.5-10.5) mg/dL Phosphorus (2.5-4.5) mg/dL Magnesium (1.7-2.3) mg/dL Total Bilirubin (0.15-1.2) mg/dL AST (0-40) U/L ALT (0-41) U/L Alkaline Phosphata se (40-130) IU/L Troponin T Gen 5 n g/L (0-15) ng/L Troponin T Baselin e (0-15) ng/L Troponin T 120 Min [place] 193.6 H (0-15) ng/L Delta Troponin T 170.6 H* (0-10) ABS# Troponin T Hi Sens 6Hr 564.6 H (0-15) ng/L Troponin T Hi Sens 6Hr Delta 541.6 H* (0-12) ng/L NT-Pro-B Natriuret Pep 212 H (0-125) pg/mL Total Protein (6.6-8.7) g/dL Albumin (3.5-5.2) g/dL Globulin (1.3-4.6) g/dL Triglycerides (0-150) mg/dL Cholesterol (0-200) mg/dL LDL Cholesterol, C alc (50-129) mg/dL HDL Cholesterol (60-100) mg/dL LDL/HDL Ratio (0.00-3.22) RATI O Cholesterol/HDL Ra kayy (1.0-5.00) mg/dL TSH (0.27-4.20) uIU/ mL 12/03/20 12/03/20 12/03/20 Range/Units 05:54 05:54 05:54 WBC 9.7 (4.0-10.0) 10^3/ uL RBC 4.90 (4.1-5.3) 10^6/u L Hgb 15.5 (11.7-16.6) g/dL Hct 45.4 (42.0-52.0) % MCV 92.7 (80-94) fL MCH 31.6 (28.0-34.0) pg MCHC 34.1 (30.0-36.0) g/dL RDW 12.5 (12.1-15.1) % Plt Count 261 (130-400) 10^3/c mm MPV 9.5 (7.4-10.4) fL Neut % (Auto) 58.9 % Lymph % (Auto) 32.5 % Chambers % (Auto) 6.1 % Eos % (Auto) 1.6 % Baso % (Auto) 0.2 % Neut # (Auto) 5.73 (1.8-7.7) 10^3/u L Lymph # (Auto) 3.2 (0.8-4.8) 10^3/u L Chambers # (Auto) 0.6 (0.2-0.9) 10^3/u L Eos # (Auto) 0.2 (0.0-0.8) 10^3/u L Baso # (Auto) 0.0 (0.0-0.1) 10^3/u L Nucleated RBC % (a uto) 0 % Nucleated RBCs # 0.0 /100WBC PT 13.10 (12.1-14.9) SECO NDS INR 0.97 (0.8-1.2) Sodium 135 L (136-145) mmol/L Potassium 3.8 (3.5-5.1) mmol/L Chloride 101 (98-107) mmol/L Carbon Dioxide 26 (22-29) mmol/L Anion Gap 11.8 (5-19) BUN 8 (8-23) mg/dL Creatinine 0.6 L (0.7-1.2) mg/dL GFR Calculation 137.0 H (90-130) mL/min Glucose 87 (65-115) mg/dL Calculated Osmolal ity 278 L (285-295) mOsm/k g Calcium 8.9 (8.5-10.5) mg/dL Phosphorus 4.1 (2.5-4.5) mg/dL Magnesium 1.8 (1.7-2.3) mg/dL Total Bilirubin 0.5 (0.15-1.2) mg/dL AST 116 H (0-40) U/L ALT 26 (0-41) U/L Alkaline Phosphata se 63 (40-130) IU/L Troponin T Gen 5 n g/L (0-15) ng/L Troponin T Baselin e (0-15) ng/L Troponin T 120 Min [place] (0-15) ng/L Delta Troponin T (0-10) ABS# Troponin T Hi Sens 6Hr (0-15) ng/L Troponin T Hi Sens 6Hr [place] (0-12) ng/L NT-Pro-B Natriuret Pep (0-125) pg/mL Total Protein 6.8 (6.6-8.7) g/dL Albumin 3.7 (3.5-5.2) g/dL Globulin 3.1 (1.3-4.6) g/dL Triglycerides (0-150) mg/dL Cholesterol (0-200) mg/dL LDL Cholesterol, C alc (50-129) mg/dL HDL Cholesterol (60-100) mg/dL LDL/HDL Ratio (0.00-3.22) RATI O Cholesterol/HDL Ra kayy (1.0-5.00) mg/dL TSH 3.10 (0.27-4.20) uIU/ mL 12/03/20 12/03/20 Range/Units 05:54 05:54 WBC (4.0-10.0) 10^3/ uL RBC (4.1-5.3) 10^6/u L Hgb (11.7-16.6) g/dL Hct (42.0-52.0) % MCV (80-94) fL MCH (28.0-34.0) pg MCHC (30.0-36.0) g/dL RDW (12.1-15.1) % Plt Count (130-400) 10^3/c mm MPV (7.4-10.4) fL Neut % (Auto) % Lymph % (Auto) % Chambers % (Auto) % Eos % (Auto) % Baso % (Auto) % Neut # (Auto) (1.8-7.7) 10^3/u L Lymph # (Auto) (0.8-4.8) 10^3/u L Chambers # (Auto) (0.2-0.9) 10^3/u L Eos # (Auto) (0.0-0.8) 10^3/u L Baso # (Auto) (0.0-0.1) 10^3/u L Nucleated RBC % (a uto) % Nucleated RBCs # /100WBC PT (12.1-14.9) SECO NDS INR (0.8-1.2) Sodium (136-145) mmol/L Potassium (3.5-5.1) mmol/L Chloride (98-107) mmol/L Carbon Dioxide (22-29) mmol/L Anion Gap (5-19) BUN (8-23) mg/dL Creatinine (0.7-1.2) mg/dL GFR Calculation (90-130) mL/min Glucose (65-115) mg/dL Calculated Osmolal ity (285-295) mOsm/k g Calcium (8.5-10.5) mg/dL Phosphorus (2.5-4.5) mg/dL Magnesium (1.7-2.3) mg/dL Total Bilirubin (0.15-1.2) mg/dL AST (0-40) U/L ALT (0-41) U/L Alkaline Phosphata se (40-130) IU/L Troponin T Gen 5 n g/L 2020 H* (0-15) ng/L Troponin T Baselin e (0-15) ng/L Troponin T 120 Min [place] (0-15) ng/L Delta Troponin T (0-10) ABS# Troponin T Hi Sens 6Hr (0-15) ng/L Troponin T Hi Sens 6Hr Delta (0-12) ng/L NT-Pro-B Natriuret Pep (0-125) pg/mL Total Protein (6.6-8.7) g/dL Albumin (3.5-5.2) g/dL Globulin (1.3-4.6) g/dL Triglycerides 134 (0-150) mg/dL Cholesterol 339 H (0-200) mg/dL LDL Cholesterol, C alc 277 H (50-129) mg/dL HDL Cholesterol 35 L (60-100) mg/dL LDL/HDL Ratio 7.91 H (0.00-3.22) RATI O Cholesterol/HDL Ra kayy 9.69 H (1.0-5.00) mg/dL TSH (0.27-4.20) uIU/ mL Discharge Plan Discharge Patient Disposition: Admitted As Inpatient Admit Provider: Román Reynaga Clinical Impression: Chest pain Condition: Stable Discharge Diet: Cardiac Discharge Activity: Increase activity as tolerated Coding Level of Care Code ED System Designer for Aden Fwd Exam Comprehensive
[2020-12-02 18:10] LABS: Basophils % 0.3 %; Eosinophils # 0.2 10^3/uL (0.0-0.8); Eosinophils % 1.5 %; Hematocrit 43.5 % (42.0-52.0); Hemoglobin 14.7 g/dL (11.7-16.6); Lymphocytes # 1.7 10^3/uL (0.8-4.8); Lymphocytes % 16.4 %; Mean Corpuscular HGB Conc 33.8 g/dL (30.0-36.0); Mean Corpuscular Hemoglobin 31.7 pg (28.0-34.0); Mean Corpuscular Volume 93.8 fL (80-94); Mean Platelet Volume 9.6 fL (7.4-10.4); Monocytes # 0.6 10^3/uL (0.2-0.9); Monocytes % 5.4 %; Neutrophils # 8.06 10^3/uL (1.8-7.7); Neutrophils % 75.6 %; Nucleated Red Blood Cells % 0 %; Platelet Count 268 10^3/cmm (130-400); Red Blood Count 4.64 10^6/uL (4.1-5.3); Red Cell Distribution Width 12.6 % (12.1-15.1); White Blood Count 10.6 10^3/uL (4.0-10.0)
[2020-12-02] MEDS: nitroglycerin drip 50 MG/250 ML PREMIX IV (18:10)
[2020-12-02] MEDS: aspirin 81 mg Chew Tablet 324 MG PO (18:11)
[2020-12-02] MEDS: enoxaparin 80 mg/0.8 mL Syringe 70 MG SUBCUT (18:13)
[2020-12-02 19:05] LABS: Alanine Aminotransferase 18 U/L (0-41); Albumin Level 3.8 g/dL (3.5-5.2); Alkaline Phosphatase 66 IU/L (40-130); Anion Gap 12.6 (5-19); Aspartate Amino Transferase 19 U/L (0-40); Blood Urea Nitrogen 7 mg/dL (8-23); Calcium 8.8 mg/dL (8.5-10.5); Carbon Dioxide 26 mmol/L (22-29); Chloride 103 mmol/L (98-107); Globulin 2.4 g/dL (1.3-4.6); Glomerular Filtration Rate 98.3 mL/min (90-130); Glucose 102 mg/dL (65-115); Osmolality Calculated 282 mOsm/kg (285-295); Potassium 4.6 mmol/L (3.5-5.1); Sodium 137 mmol/L (136-145); Total Bilirubin 0.3 mg/dL (0.15-1.2); Total Protein 6.2 g/dL (6.6-8.7)
[2020-12-02 19:06] LABS: Troponin(5th) Baseline 23 ng/L (0-15)
--- NOTE | 2020-12-02 19:26 | PC.NURSE ---
EKG done at 1925 and shown to ER doctor
--- NOTE | 2020-12-02 19:40 | ECG_ITS ---
[facility] Test Date: 2020-12-02 Pat Name: Jesus Polk Department: Room: Gender: Male Supervisor Extrusion: : 1960 Requested By: Handy Jurado Order Number: [id number] Jhonny MD: Samara Machado M.D. Measurements Intervals [place] Rate: 64 P: 64 TX: 170 QRS: 39 QRSD: 95 T: 73 QT: 410 QTc: 425 Interpretive Statements SINUS RHYTHM MINIMAL ST DEPRESSION [0.025+ mV ST DEPRESSION] Compared to ECG 12/04/2019 10:13:43 ST (T wave) deviation now present T-wave abnormality no longer present Possible ischemia no longer present Electronically Signed On 12-03-2020 9:36:44 DITCH INSPECTOR by Samara Machado M.D. [id number]
[2020-12-02] MEDS: morphine 4 mg/mL SDV 1 mL IVP (19:55)
--- NOTE | 2020-12-02 20:06 | PM.HP ---
Providers/Chief Complaint Chief Complaint: Chest Pain/Took 3 Nitro History of Present Illness Jesus Polk is a 60 year old male with a history of familial hypercholesterolemia, history of CAD in his 30s, past medical history of CAD status post multiple stents, CABG x3, last coronary angiogram was in 11/2019 saphenous vein graft to the right coronary artery occluded, high-grade lesion in the venous graft to obtuse marginal artery which was primary stented, total occlusion of LAD, left circumflex, right coronary artery, current smoker, history of COPD, hypertension, hyperlipidemia, who presents to [facility] due to complaints of chest pain. Patient tells me that he has a 1 week history of chest pain, and shortness of breath. For the last week he has been having small episodes of substernal chest pain, associate with shortness of breath, shortness of breath less than 10 feet, his symptoms will improve with rest, improved with nitro. However this morning he had a severe episode of chest pain, lasting over 30 minutes, substernal, like something sitting on his chest, radiating across the chest and down the left arm, did not improve with 3 nitro, he called EMS, in the emergency room he continued to have chest pain, was placed on a nitroglycerin drip, his chest pain is minimal, currently 4 out of 10, his EKG did show minimal ST depressions in the lateral leads, first troponin is 23. Review of Systems Const: Denies: fever(s), chills, fatigue or malaise Eyes: Denies: change in vision or blurry vision ENMT: Denies: nasal congestion Card: Reports: chest pain Resp: Reports: dyspnea; Denies: productive cough, non-productive cough or wheezing GI: Denies: abdominal pain, nausea, vomiting, hematemesis, diarrhea, constipation, hematochezia or melena : Denies: flank pain, difficulty urinating, dysuria or urinary frequency Musc: Denies: neck pain or back pain Skin/Breast: Denies: rash Neuro: Denies: headache(s), dizziness or vertigo Psych: Denies: anxiety or depression Endo: Denies: polyuria or polydipsia Medications/Allergies Home Medications Medication Instructions Recorded Confirmed Last Taken Type albuterol sulfate 1 inh INHALATION Q6H PRN #18 gm 12/04/19 12/02/20 Unknown Rx fluticasone propion-salmeterol 1 inh INHALATION Q12H #60 each 12/04/19 12/02/20 Unknown Rx [Advair Diskus] nitroglycerin [Nitrostat] 0.4 mg SUBLINGUAL Q5M PRN #25 tab 12/04/19 12/02/20 12/02/20 Rx tiotropium bromide [Spiriva with 1 cap INHALATION DAILY #30 inh 12/04/19 12/02/20 Unknown Rx HandiHaler] atorvastatin 40 mg PO BEDTIME #30 tab 12/07/19 12/02/20 Unknown Rx olanzapine 5 mg PO BEDTIME #30 tab 12/07/19 12/02/20 Unknown Rx tamsulosin 0.4 mg PO DAILY #30 cap 12/07/19 12/02/20 Unknown Rx thiamine mononitrate (vit B1) 100 mg PO DAILY #30 tab 12/07/19 12/02/20 Unknown Rx [Vitamin B-1 (mononitrate)] clopidogrel 75 mg tablet 75 mg PO DAILY #90 tab 01/07/20 12/02/20 Unknown Rx lisinopril 2.5 mg tablet 2.5 mg PO DAILY #30 tab 02/13/20 12/02/20 Unknown Rx metoprolol succinate 25 mg 25 mg PO DAILY #30 tab 02/13/20 12/02/20 Unknown Rx tablet,extended release 24 hr aspirin 81 mg PO DAILY@0900 12/02/20 12/02/20 12/02/20 History Allergies Allergy/AdvReac Type Severity Reaction Status Date / Time No Known Allergies Allergy Verified 12/13/19 11:41 PFSH Acute PFSH: Medical History Abuse of smoked substance 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 Started having heart problems in the 30s. No problems noted. Family/Other CAD (coronary artery disease) Many of his uncles and aunts on the paternal side had heart disease/heart attack in their 30s and 50s. His sister and brother both had coronary disease and coronary intervention in their 50s. Social History Smoking and tobacco status: current every day smoker cigarettes Packs smoked per day: 1.5 Years cigarettes smoked: 40 [ Other cigarette details: Currently he smokes less than half pack a day especially over the last 1 year. ] Alcohol intake: never Vitals/I&O/Wt Last Vital Signs Temp 98.1 F 12/02/20 17:30 Pulse 73 12/02/20 18:15 Resp 20 H 12/02/20 18:15 BP 124/71 12/02/20 18:15 Pulse Ox 95 12/02/20 18:15 Weight last 48 hrs Weight 65.771 kg Physical Exam Const: COMMON NORMALS: no acute distress and patient oriented x3 GENERAL APPEARANCE: cooperative and comfortable HENMT: COMMON NORMALS: normocephalic HEAD & SCALP: normocephalic Eye: COMMON NORMALS: Equal, round and reactive pupils present and EOMs intact bilaterally GENERAL EYE: appearance normal, both eyes and all related structures PUPIL: Yes Equal, round and reactive pupils present Neck/C-Spine: COMMON NORMALS: full ROM, no lymphadenopathy, no JVD and Thyroid normal THYROID: Thyroid normal Lymph: LYMPHATIC: no lymphadenopathy noted Resp: COMMON NORMALS: normal respiratory effort, No retractions, No use of accessory muscles and clear to auscultation bilaterally AUSCULTATION: clear to auscultation bilaterally Cardio: COMMON NORMALS: no JVD, regular rate, regular rhythm, S1 normal heart sound present, S2 normal heart sound present, No gallops present (Cardio), No clicks present (Cardio) and No murmurs present (Cardio) RATE: regular rate RHYTHM: regular rhythm HEART SOUNDS: S1 normal heart sound present and S2 normal heart sound present GI: COMMON NORMALS: Normal to inspection, nondistended, normoactive bowel sounds present, Soft to palpation, non-tender and No hepatosplenomegaly present PALPATION: Yes Soft to palpation and Yes No hepatosplenomegaly present Extremity: COMMON NORMALS: normal to inspection, full ROM and no pedal edema Neuro: COMMON NORMALS: patient oriented x3, CN's II-XII intact bilaterally, moves all extremities and no focal motor deficits Psych: COMMON NORMALS: mental status grossly normal, Normal thought process present and cooperative THOUGHT PROCESS: Normal thought process present Data : 12/02/20 17:58 12/02/20 17:58 A&P Assessment and plan (1) Chest pain: -History of CABG x3, multiple stenting, last cath on 2019 total occlusion of LAD, left circumflex, right coronary artery, high-grade lesion of venous graft to obtuse marginal artery was primary stented, has a history of familial hypercholesterolemia, is noncompliant with statin, ran out of Plavix a month ago -Currently chest pain 4 out of 10 -EKG showing minimal ST depressions in lateral leads, first of troponin is 23 Plan: -Admit to cardiac stepdown unit -Aspirin, statin, Plavix, therapeutic Lovenox, beta-edy -Continue nitro drip -Serial EKGs, serial troponins -Monitor for chest pain -If chest pain worsens, will consider urgent evaluation -For now I have discussed the case with cardiology, Dr. Walters on consult, continue medical management as above -Does have crackles on exam, EKG does show pulmonary edema, will give a trial of Lasix 40 mg IV push once, echocardiogram ordered -The other issue is the patient does not have insurance, and affordability of medication is a significant concern -Patient is a full code -Lovenox for DVT prophylaxis Status: Acute Qualifiers: Chest pain type: unspecified Qualified Code(s): R07.9 - Chest pain, unspecified (2) Dyslipidemia (high LDL; low HDL): Noncompliant with statin, due to myopathy, has a history of familial hypercholesterolemia, can consider newer agents Status: Acute (3) Hx of CABG: Status: Acute (4) History of heart artery stent: Status: Acute (5) COPD (chronic obstructive pulmonary disease): Status: Acute Qualifiers: COPD type: unspecified COPD Qualified Code(s): J44.9 - Chronic obstructive pulmonary disease, unspecified Attestations Medical Necessity Statement*: Patient requires hospitalization, outpatient with observation, for chest pain Coding Level of Care Code Acute 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
[2020-12-02 21:06] LABS: Troponin 5 2HR 193.6 ng/L (0-15); Troponin 5 2HR Delta 170.6 ABS# (0-10)
[2020-12-02] MEDS: OLANZapine 5 mg ODT PO (21:46)
[2020-12-02] MEDS: FUROsemide 10 mg/mL SDV 4mL 40 MG IVP (21:47)
[2020-12-02 22:47] LABS: NT Pro B Type Natriuretic Pept 212 pg/mL (0-125)
[2020-12-03] VITALS (29 sets, daily range): BP systolic 93–137; BP diastolic 57–96; PULSE 68–109; RESP 16–28; TEMP 36.3–37.5; O2SAT 91–96
[2020-12-03 00:09] LABS: Troponin 5 6HR 564.6 ng/L (0-15); Troponin 5 6HR Delta 541.6 ng/L (0-12)
--- NOTE | 2020-12-03 00:18 | PC.NURSE ---
notified Dr Reynaga of troponin with critical delta of 541.6, received order for troponin at 0600, pt resting in bed, denies chest pain at this time
--- NOTE | 2020-12-03 00:45 | ECG_ITS ---
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 Measurements Intervals [place] Rate: 67 P: 53 UT: 152 QRS: 40 QRSD: 85 T: 51 QT: 403 QTc: 427 Interpretive Statements SINUS RHYTHM POSSIBLE RIGHT VENTRICULAR CONDUCTION DELAY [RSR (QR) IN V1/V2] Compared to ECG 12/02/2020 19:21:26 ST (T wave) deviation no longer present Electronically Signed On 12-03-2020 17:26:37 GARBAGE COLLECTION SUPERVISOR by Dereje Walters M.D. [id number]
[2020-12-03] MEDS: atorvastatin 40 mg Tablet PO (00:47)
[2020-12-03] MEDS: clopidogrel 75 mg Tablet PO (00:47)
--- NOTE | 2020-12-03 00:49 | PC.NURSE ---
received call from Dr Reynaga with order to given plavix dose now and asked if pt had received lipitor, informed that pt had refused lipitor stating allergy to statins, Dr Reynaga stated, he has to have it tonight , informed pt and lipitor and plavix given, ekgs ordered Q3H
--- NOTE | 2020-12-03 03:45 | ECG_ITS ---
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 Measurements Intervals [place] Rate: 68 P: 65 VA: 176 QRS: 47 QRSD: 75 T: 59 QT: 408 QTc: 434 Interpretive Statements SINUS RHYTHM POSSIBLE LEFT ATRIAL ENLARGEMENT [-0.1mV P WAVE IN V1/V2] POSSIBLE RIGHT VENTRICULAR CONDUCTION DELAY [RSR (QR) IN V1/V2] Compared to ECG 12/03/2020 00:48:23 No significant changes Electronically Signed On 12-03-2020 17:26:24 CERTIFIED REGISTERED NURSE PRACTITIONER by Dereje Walters M.D. [id number]
--- NOTE | 2020-12-03 06:00 | ECG_ITS ---
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 Measurements Intervals [place] Rate: 73 P: 66 [place]: 181 QRS: 51 QRSD: 75 T: 77 QT: 401 QTc: 442 Interpretive Statements SINUS RHYTHM POSSIBLE LEFT ATRIAL ENLARGEMENT [-0.1mV P WAVE IN V1/V2] POSSIBLE RIGHT VENTRICULAR CONDUCTION DELAY [RSR (QR) IN V1/V2] MINIMAL ST DEPRESSION [0.025+ mV ST DEPRESSION] Compared to ECG 12/03/2020 03:38:51 ST (T wave) deviation now present Electronically Signed On 12-03-2020 17:25:36 IN STORE MARKETER by Dereje Walters M.D. [id number]
[2020-12-03 06:16] LABS: Basophils % 0.2 %; Eosinophils # 0.2 10^3/uL (0.0-0.8); Eosinophils % 1.6 %; Hematocrit 45.4 % (42.0-52.0); Hemoglobin 15.5 g/dL (11.7-16.6); Lymphocytes # 3.2 10^3/uL (0.8-4.8); Lymphocytes % 32.5 %; Mean Corpuscular HGB Conc 34.1 g/dL (30.0-36.0); Mean Corpuscular Hemoglobin 31.6 pg (28.0-34.0); Mean Corpuscular Volume 92.7 fL (80-94); Mean Platelet Volume 9.5 fL (7.4-10.4); Monocytes # 0.6 10^3/uL (0.2-0.9); Monocytes % 6.1 %; Neutrophils # 5.73 10^3/uL (1.8-7.7); Neutrophils % 58.9 %; Nucleated Red Blood Cells % 0 %; Platelet Count 261 10^3/cmm (130-400); Red Cell Distribution Width 12.5 % (12.1-15.1); White Blood Count 9.7 10^3/uL (4.0-10.0)
[2020-12-03 06:31] LABS: INR 0.97 (0.8-1.2)
[2020-12-03 06:43] LABS: Chol HDL Ratio 9.69 mg/dL (1.0-5.00); Cholesterol 339 mg/dL (0-200); HDL Cholesterol 35 mg/dL (60-100); LDL Cholesterol Calculated 277 mg/dL (50-129); LDL HDL Ratio 7.91 RATIO (0.00-3.22); Triglycerides 134 mg/dL (0-150)
[2020-12-03 06:51] LABS: Troponin T (5th) Once 2021 ng/L (0-15)
[2020-12-03 06:53] LABS: Alanine Aminotransferase 26 U/L (0-41); Albumin Level 3.7 g/dL (3.5-5.2); Alkaline Phosphatase 63 IU/L (40-130); Anion Gap 11.8 (5-19); Aspartate Amino Transferase 116 U/L (0-40); Blood Urea Nitrogen 8 mg/dL (8-23); Calcium 8.9 mg/dL (8.5-10.5); Carbon Dioxide 26 mmol/L (22-29); Chloride 101 mmol/L (98-107); Globulin 3.1 g/dL (1.3-4.6); Glucose 87 mg/dL (65-115); Magnesium 1.8 mg/dL (1.7-2.3); Osmolality Calculated 278 mOsm/kg (285-295); Phosphorus 4.1 mg/dL (2.5-4.5); Potassium 3.8 mmol/L (3.5-5.1); Sodium 135 mmol/L (136-145); Total Bilirubin 0.5 mg/dL (0.15-1.2); Total Protein 6.8 g/dL (6.6-8.7)
--- NOTE | 2020-12-03 07:00 | PC.NURSE ---
Dr. Walters notified of critical troponin. Patient reports mild chest pain and shortness of breath. Telephone order to prep patient for angiogram. Consent obtained.
--- NOTE | 2020-12-03 07:34 | P.CONIM_ITS ---
Providers/Reason For Consult Consulting Physican/Specialty*: Dereje Walters MD/ Cardiology Reason for Consult*: NSTEMI Requesting Physcian: Dr Román Reynaga Attending Physician: Román Reynaga MD History of Present Illness History of Present Illness 60 year old male with a history of familial hypercholesterolemia, history of CAD in his 30s, past medical history of CAD status post multiple stents, CABG x3, last coronary angiogram was in 11/2019 saphenous vein graft to the right cor onary artery occluded, high-grade lesion in the venous graft to LAD which was stented,SVG to OM was patent,total occlusion of LAD, left circumflex, right coronary artery, current smoker, history of COPD, hypertension, hyperlipidemia, who presents to [facility] due to complaints of chest pain. Patient has multiple PCIs done as well. Patient had 1 week history of chest pain, and shortness of breath. He has been having worsening chest pain over the last 1 week with each episode lasting for a few minutes and relieved with nitro. However yesterday he had prolonged severe chest pain that radiated down the left arm and did not improve with 3 nitros. He called EMS. In the emergency room his EKG showed minimal lateral lead ST depressions but no ST elevations. First troponin was 23 that trended to more than 1000. Nitro drip was started in the ER that relieved his chest pain. Overnight patient did not have ST elevations. Review of Systems General: Reports: 10 or more systems reviewed and unremarkable except in HPI and below Narrative: CONSTITUTIONAL: No fever chills weight loss or gain or night sweats. [] HEENT: Normocephalic, atraumatic.[] RESPIRATORY:Has shortness of breath.[] CARDIOVASCULAR: Has shortness of breath, chest pain, no PND, orthopnea, lower extremity edema, presyncope or syncope. [] GI: no nausea vomiting diarrhea. [] EQUIPMENT MAINTENANCE SUPERVISOR: No numbness, tingling, weakness or loss of function in any part of the body. [] MUSCULOSKELETAL: No knee or joint pain or rashes. [] Meds/Allergies Home Medications and Allergies Home Medications Medication Instructions Recorded Confirmed Last Taken Type albuterol sulfate 1 inh INHALATION Q6H PRN #18 gm 12/04/19 12/02/20 Unknown Rx fluticasone propion-salmeterol 1 inh INHALATION Q12H #60 each 12/04/19 12/02/20 Unknown Rx [Advair Diskus] nitroglycerin [Nitrostat] 0.4 mg SUBLINGUAL Q5M PRN #25 tab 12/04/19 12/02/20 12/02/20 Rx tiotropium bromide [Spiriva with 1 cap INHALATION DAILY #30 inh 12/04/19 12/02/20 Unknown Rx HandiHaler] olanzapine 5 mg PO BEDTIME #30 tab 12/07/19 12/02/20 Unknown Rx tamsulosin 0.4 mg PO DAILY #30 cap 12/07/19 12/02/20 Unknown Rx thiamine mononitrate (vit B1) 100 mg PO DAILY #30 tab 12/07/19 12/02/20 Unknown Rx [Vitamin B-1 (mononitrate)] clopidogrel 75 mg tablet 75 mg PO DAILY #90 tab 01/07/20 12/02/20 Unknown Rx lisinopril 2.5 mg tablet 2.5 mg PO DAILY #30 tab 02/13/20 12/02/20 Unknown Rx metoprolol succinate 25 mg 25 mg PO DAILY #30 tab 02/13/20 12/02/20 Unknown Rx tablet,extended release 24 hr aspirin 81 mg PO DAILY@0900 12/02/20 12/02/20 12/02/20 History Allergies Allergy/AdvReac Type Severity Reaction Status Date / Time No Known Allergies Allergy Verified 12/13/19 11:41 Current Medications Current Medications Generic Name Dose Route Start Last Admin Trade Name Freq PRN Reason Stop Dose Admin Atorvastatin Calcium 40 mg 12/02/20 21:02 12/03/20 00:47 Atorvastatin 40 Mg Tablet PO 40 mg BEDTIME RACHEL Administration Enoxaparin Sodium 70 mg 12/02/20 21:15 12/02/20 21:18 Enoxaparin 80 Mg/0.8 Ml Syringe SUBCUT Not Given Q12H RACHEL Nitroglycerin/Dextrose 50 mg in 250 mls @ 0 mls/hr 12/02/20 18:00 12/03/20 06:57 Nitroglycerin Drip IV 10 mcg/min .Q0M RACHEL 3 mls/hr Titration Protocol Per Protocol Olanzapine 5 mg 12/02/20 21:02 12/02/20 21:46 Olanzapine 5 Mg Odt PO 5 mg BEDTIME RACHEL Administration Fluticasone/Salmeterol 1 puff 03/10/21 21:02 12/03/20 00:15 Fluticasone-Salmeterol 250-50 Diskus INHALATION Not Given Q12H RACHEL PFSH Acute PFSH: Medical History (Updated 12/03/20 @ 11:20 by Dereje Walters M.D) Abuse of smoked substance 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 Started having heart problems in the 30s. No problems noted. Family/Other CAD (coronary artery disease) Many of his uncles and aunts on the paternal side had heart disease/heart attack in their 30s and 50s. His sister and brother both had coronary disease and coronary intervention in their 50s. Social History Smoking and tobacco status: current every day smoker cigarettes Packs smoked per day: 1.5 Years cigarettes smoked: 40 [ Other cigarette details: Currently he smokes less than half pack a day especially over the last 1 year. ] Alcohol intake: never Vitals/I&O/Wt Last Vital Signs Temp 97.4 F L 12/03/20 07:25 Pulse 86 12/03/20 07:25 Resp 26 H 12/03/20 07:25 BP 137/96 12/03/20 07:25 Pulse Ox 95 12/03/20 07:25 12/02/20 12/03/20 12/03/20 22:59 06:59 14:59 Intake Total 1240 / 1240 19.175 / 1259.175 Output Total 550 / 550 800 / 1350 Balance 690 / 690 -780.825 / -90.825 Weight last 48 hrs Weight 145 lb Physical Exam Narrative: EXAM NARRATIVE: GENERAL: Patient is alert, awake and oriented x3. [] NECK: No jugular vein distension. [] HEENT: No cyanosis. No icterus. No pallor. [] HEART: Regular S1 and S2. No murmur, rub or gallop. [] LUNGS: Clear to auscultate bilaterally. [] ABDOMEN: Soft, nontender and nondistended. Positive bowel sounds. No guarding, rebound or tenderness. [] CENTRAL NERVOUS SYSTEM: Grossly nonfocal. [] EXTREMITIES: Lower extremities with no edema bilaterally. Pulses palpable in the lower extremities, both dorsalis pedis and posterior tibial. [] A&P Assessment and plan (1) NSTEMI (non-ST elevated myocardial infarction): Status: Acute (2) Hx of CABG: Status: Acute (3) Noncompliance: Status: Acute (4) Dyslipidemia (high LDL; low HDL): Status: Acute (5) CAD (coronary artery disease): Status: Acute (6) Abuse of smoked substance: Status: Acute Patient has NSTEMI with typical chest pain with significant troponin elevation. EKG showed ST depressions in lateral leads. We will proceed with coronary angiography with possible percutaneous coronary intervention. Continue aspirin and Plavix. High intensity statin therapy. N.p.o. Order echocardiogram Thank you for involving us with care of this patient. We will continue to follow. Please call with questions. 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
--- NOTE | 2020-12-03 07:37 | XACV_ITS ---
Exam Room: [facility] Ht: 160 cm Wt: 66 kg BSA: 1.72 m2 Gender: Male : 1960 Any Known Allergies: No known allergies Exam Priority: Routine Procedure(s): Procedure Description: Diagnostic procedure Procedure Description: PCI procedure Procedure Description: Left Heart Catheterization Procedure Description: Drug Eluting Coronary Stent Diagnostic Cath Status: Urgent Diagnostic Findings * Left main is a short vessel.. * LAD arises from left main artery. * It is proximally * occluded * chronically. * It has proximal to distal * multiple stents that are all occluded. pLAD: Severe 100% stenosis, PASTOR: 0 flow. * Left circumflex artery * arises from left main artery. It has * severe proximal vessel disease. It is occluded in the midsegment. mCIRC: Severe 100% stenosis, PASTOR: 0 flow. * Proximal RCA is a DB2 DBA. pRCA: Severe 100% stenosis, PASTOR: 0 flow. * SVG to RCA is known occluded and was not injected.. * SVG to dLAD: patent. * SVG to 1st OM: 95% stenosis, PASTOR: 3 flow. * Coronary angiography shows right dominance. PCI Status: Urgent PCI Indication: NSTE - ACS Interventional Findings * Procedure detail: We engaged SVG to OM graft initially with a JR 4 guide catheter followed by AL 1 guide but were unable to engage well. IV heparin was used to maintain an ACT above 250 seconds. We then engaged SVG graft with LCB guide catheter. A 0.014 run-through guidewire was used to cross the SVG stenosis. We placed 3.0x 38 mm resolute [place] stent. Post stent placement angiogram showed slow flow. We administered nicardipine and that improved flow significantly. We had PASTOR 3 flow, excellent stent expansion and no residual stenosis. Guidewire and guide catheter were removed. Hemostasis was obtained with angioseal. Patient left the Administration Dean in a stable condition. Conclusions 1. SVG to RCA is known occluded and not injected, SVG to LAD is patent. SVG to OM has severe stenosis and is the culprit lesion for the NSTEMI. 2. Successful revasuclarization with DESx 1 placement in SVG to OM. 3. There is severe coronary artery disease with three vessel disease. 4. Patient has prior CABG. Recommendations * Transfer back to CSU. * Aspirin and Plavix for 1 year. * High intensity statin therapy. * Beta edy as tolerated. * Order echocardiogram. * Follow up with cardiology office in 7-10 days. Interventional RX Recommendation: PCI w/o planned CABG Diagnostic RX Recommendation: PCI w/o planned CABG Pressures Phase:Rest AO : 119 / 82 ( 99 ) @ 3:53:00 AM Clinical Evaluation EBL: 5mL-10mL Procedural Details Procedure Consent Obtained. Admit Source: In Patient. Pre-Procedure Time Out. Identified patient by full name and date of as verbalized by the patient/guarantor. Does the consent match the physician's order: Yes. Accurate & Complete Informed Consent: Yes. Inpatient/Outpatient History & Physical on Chart: Yes. If H&P is completed, is and addenduem needed: N/A; If yes, is the addendum complete: N/A. Visualize and Verify Site with Patient/Guarantor: N/A. Relevant Radiology Images available: N/A. Pre-op teaching completed and patient verbalized understanding. The risks, benefits, and alternatives of sedation and/or procedure were discussed by physician. The patient agrees to continue. Procedure started. [facility] Clinical Fraility Score: 4: Vulnerable. Administration Dean Indications: ACS <= 24 hours. Chest Pain Symptom Assessment: Typical Angina Symptoms. Cardiovascular Instability: No,. Correct patient, site and procedure confirmed by cath team. PERRLA. Strong, equal hand java architect bilaterally. Lungs clear x 5 lobes. IV Site on Arrival: 18 gauge in the right forearm. IV Site on Arrival: 18 gauge in the left anticubital. Pre Procedural Pulses: bilateral dorsalis pedis was 2+. Pre Procedural Pulses: bilateral posterior tibial was 2+. Pre Procedural Pulses: bilateral radial was 2+. Oxygen started at 2liters/min via nasal canula. bilateral groins was prepped with chloroprep then draped in the usual sterile fashion. Physician notified. Baseline sample Acquired. HR: 79 BPM. Physician arrived. Physician scrubbed in. Immediate Pre-Procedure Time Out. Correct Patient: Yes; Correct Procedure: Yes; Correct Site: Yes; Correct Patient Position: Yes; Correct Supplies: Yes; Dried Flammable Prep: Yes; Blood Products Available: na;. Lidocaine 1% infiltrated to the right groin. Arterial access obtained with micropuncture set. A 5 barbadian JL4 catheter in over wire. Multiple views taken of left coronary artery. Catheter out. A 5 barbadian JR4 catheter in over wire. Multiple views taken of right coronary artery. SVG's to LAD visualized and patent. SVG's to OM visualized and patent. Catheter out. ACT drawn. Results 248 seconds. Therapeutic limits - pre-heparin administration 90-150 seconds and monitoring heparin during a vascular procedure >250 seconds. 6 barbadian JR 4 guide catheter was inserted over the wire. Runthrough guidewire was advanced through the guide catheter to lesion in the OM. Intact stent coming out. 6F GuideLiner inserted Lot#[id number]. Intact stent coming out. GuideLiner out. Wire out. Guide catheter out. 6 barbadian AL I guide catheter was inserted over the wire. Runthrough guidewire was advanced through the guide catheter to lesion in the OM. Intact stent out. runthrough wire out. Guide catheter out. 6 barbadian LCB guide catheter was inserted over the wire. wire inserted. Inflation Number : 1 Danielle AZAR R PEDRO 3.0X38 VERONICA -Lot Number# [id number] exp date: 08-21-2021 was prepped and advanced across the Aorta Left -> 1st Ob Patricia. The stent was deployed at 12 NELL for 0:32 seconds. Results checked. runthrough wire out. Guide catheter out. Lidocaine 1% infiltrated to the right groin. Angio-Seal Lot#[id number] placed without complications. No signs or symptoms of hematoma noted. Sterile dressing applied per usual sterile fashion. Post Procedure: Pulses reassessed and unchanged. PERRLA. Strong, equal hand java architect bilaterally. No VTE prophylaxis required. Medication's Wasted: Lidocaine 1% = 10 mL. Medication's Wasted: Nitro = 50 mg. Medication's Wasted: Other = cardene 24.55 mg. Medication's Wasted: Heparin = 3000 units. Total IV fluids: 150 mL. Contrast type used: Visipaque 320 mgI/mL, 500 mL bottle. Contrast Material : Visipaque 248 ml. PCI Indication: NSTE. Post-op diagnosis: severe SVG stenosis. Complications: none. Estimated blood loss: 5mL-10mL. Procedure completed. A Angio-Seal VIP ([place]) was successful obtaining hemostatsis at the Right Femoral artery insertion site. Patient transferred by bed to 1st floor. Vital chart was stopped. Access Site Site: Right Femoral artery Sheath Size: 6 Fr Hemostasis Method: Angio-Seal VIP ([place]) Hemostasis Success: Successful Procedure Medications Start: 7:52 AM Stop: 7:52 AM Medication: Versed Amount: 1 mg Route: I.V. Start: 7:52 AM Stop: 7:52 AM Medication: Fentanyl Amount: 50 mcg Route: I.V. Start: 7:59 AM Stop: 7:59 AM Medication: Versed Amount: 1 mg Route: I.V. Start: 7:59 AM Stop: 7:59 AM Medication: Fentanyl Amount: 50 mcg Route: I.V. Start: 8:14 AM Stop: 8:14 AM Medication: Heparin Amount: 8000 units Route: I.V. Start: 8:22 AM Stop: 8:22 AM Medication: Heparin Amount: 2000 units Route: I.V. Start: 8:29 AM Stop: 8:29 AM Medication: Heparin Amount: 1000 units Route: I.V. Start: 8:52 AM Stop: 8:52 AM Medication: Cardene Amount: 250 mcg Route: I.C. Start: 9:01 AM Stop: 9:01 AM Medication: Heparin Amount: 2000 units Route: I.V. Start: 9:04 AM Stop: 9:04 AM Medication: Plavix Amount: 600 mg Route: P.O. Start: 8:54 AM Stop: 8:54 AM Medication: Cardene Amount: 200 mcg Route: I.C. I, the attending physician, have reviewed and verified all procedure medications. Yes, all medications given per verbal order History/Risk Factors Hypertension: Yes Dyslipidemia: Yes Myocardial Infarction ([place]): Yes Tobacco Use: Current/Recent(w/in 1 year) Prior Interventions PCI: Yes CABG: Yes Report Signatures Finalized by Dereje Walters MD on 12/11/2020 06:46 PM
--- NOTE | 2020-12-03 07:40 | PC.NURSE ---
Patient to helper animal laboratory at this time. Nitro gtt discontinued by helper animal laboratory nurses. Patient A&O, VSS.
--- NOTE | 2020-12-03 07:52 | W.PM.OPSUD ---
Surgery/Procedure H&P Update DATE OF PROCEDURE: December 03, 2020 DATE H&P PERFORMED: 12/03/20 H&P UPDATE INFORMATION: I have reviewed H&P completed within last 30 days, I have examined patient prior to procedure and No changes to prior documentation PREOP DIAGNOSIS: NSTEMI PRIMARY INDICATION FOR PROCEDURE: NSTEMI PLANNED PROCEDURE: Coronary angiography with possible percutaneous coronary intervention PATIENT REASSESSED PRIOR TO SEDATION, WITH NO CHANGE NOTED: Yes PHYSICAL EXAM: alert, oriented x 3 and not clear to auscultation bilaterally (Patient has wheezing) AIRWAY EVAL/ANESTHESIA PLAN: ASA III, Risks, benefits & alternatives of sedation and/or procedure discussed and Patient agrees to continue as planned
--- NOTE | 2020-12-03 07:59 | PC.NURSE ---
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 Telephone order to hold D50 and reassess BG when patient arrives back to unit.
--- NOTE | 2020-12-03 09:17 | PC.NURSE ---
Patient to CSU from quality lab technician at this time. 2 nurse verification of insertion site, asymptomatic. Patient educated on activity restrictions, verbalized understanding. Nurse to continue to monitor.
[2020-12-03] MEDS: sodium chloride 0.9% 1,000 ML 100 ML IV (09:45)
--- NOTE | 2020-12-03 10:18 | PC.NURSE ---
Dr. Walters notified morning medication start time entered for tomorrow morning. Telephone order to administer one time dose of aspirin, pepcid, lisinopril, metoprolol, flomax, and thiamine now, RBTO.
[2020-12-03] MEDS: albuterol 8 gm MDI 1 PUFF INHALATION ×2 (10:19→20:52)
[2020-12-03] MEDS: metoprolol succinate ER (24 HR) 25 mg Tablet PO (10:30)
[2020-12-03] MEDS: tamsulosin 0.4 mg Capsule PO (10:30)
[2020-12-03] MEDS: lisinopril 2.5 mg Tablet PO (10:30)
[2020-12-03] MEDS: thiamine 100 mg Tablet PO (10:31)
[2020-12-03] MEDS: aspirin 81 mg Chew Tablet PO (10:31)
[2020-12-03] MEDS: famotidine 20 mg Tablet PO ×2 (10:31→17:17)
--- NOTE | 2020-12-03 10:59 | PC.NURSE ---
Patient had a 15 beat run of vtach on telemetry, asymptomatic, VSS. Dr. Walters notified. No new orders received. Nurse to continue to monitor.
--- NOTE | 2020-12-03 11:13 | PC.CHAP ---
Pastoral Care Encounter/Spiritual Assessment Type of Contact [x] Declined tooth polisher visit [] Patient/Family/Request visit [] Outpatient visit [] Follow-up visit [] Physician referral [] Code/Alert [] Routine visit [] Staff referral [] Actively dying [] Patient sleeping [] Family support [] [] Out of room [] Palliative care [] [] Receiving care in room [] Pre-surgical visit [] Trauma [] Long length of stay [] ICU visit [] Other: Relational/Emotional Strength [] Patient feels connected with others/family/visitors/staff [] Distress [] Loneliness/isolation [] Abandonment Spirituality of Patient [] Person of Barbara [] Attends Episcopal of their Barbara [] Believes in Prayer [] Reads Bible or Pentecostal materials [] There are Spiritual issues to be addressed Branch Sales And Service Representative Interventions [] Prayer [] Active listening [] Non-anxious presence [] Spiritual/emotional support [] Crisis/trauma care [] Spiritual counseling [] Bereavement support [] Provided bereavement packet [] Provided Bible/devotional materials [] Provided toy/stuffed animal, coloring book to patient or family member [] Provided Communion [] Anointing/Orange [] Salvation [] Completed spiritual assessment [] Other: Impact on Illness or Injury [] Angry [] Fearful [] Anxious [] Often cries [] Exhaustion [] Unable to work [] Unable to attend taoism [] Unable to walk/stand [] Unable to read [] Unable to drive [] Unable to eat/drink [] Unable to sleep [] Unable to be with family [] Patient intubated [] Other: Summary Declined tooth polisher visit Time spent with patient 5 mins
--- NOTE | 2020-12-03 11:49 | PM.PN ---
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 for financial services education consultant Patient feeling strong to quit smoking not requesting nicotine replacement therapy Vitals/I&O/Wt Last Vital Signs Temp 98.2 F 12/03/20 11:24 Pulse 72 12/03/20 11:24 Resp 21 H 12/03/20 11:24 BP 115/78 12/03/20 11:24 Pulse Ox 94 12/03/20 11:24 12/02/20 12/03/20 12/03/20 22:59 06:59 14:59 Intake Total 1240 / 1240 19.175 / 1259.175 2.15 / 2.15 Output Total 550 / 550 800 / 1350 Balance 690 / 690 -780.825 / -90.825 2.15 / 2.15 Weight last 48 hrs Weight 65.771 kg Physical Exam Narrative: EXAM NARRATIVE: Patient was laying comfortably in his bed No active chest pain Hemodynamically stable Was saturating well on room air Appears stated age S1, S2 sinus rhythm no sign of heart failure Abdomen soft nontender bowel sound present Right groin, femoral sheath has been pulled no active drainage no hematoma Lower extremity no edema gangrene ulcer No vascular compromise Awake alert oriented x3 GCS 15 No joint swelling or signs of cellulitis No acute respiratory distress saturating well on room air Data : 12/03/20 05:54 12/03/20 05:54 A&P Assessment and plan (1) NSTEMI (non-ST elevated myocardial infarction): Status: Acute (2) Abuse of smoked substance: Status: Acute Additional A&P Information NSTEMI Established coronary disease history of CABG Typical chest pain, underwent PCI by cardiology this morning Patient examined after cardiac catheterization and PCI Details as per Buttonhole Tacker procedure Continue patient on dual antiplatelet therapy, statin lisinopril and Toprol Requested director social service to arrange financial services education consultant Nicotine dependence: Patient has decided to quit cold turkey, consult and encouraged does not want nicotine replacement therapy at this time COPD without acute exacerbation Not requiring supplemental oxygenation Hyperglycemia noted on BMP, patient was eating breakfast when I saw him no signs of Cardiac diet DVT prophylaxis Lovenox Full code Attestations Medical Necessity Statement*: Anticipating discharge tomorrow, status post angiogram and PCI today Time Spent in Patient Care: 30mins Coding Level of Care Code Acute Business Solutions Director for Aden Fwcharlie Diagnoses NSTEMI (non-ST elevated myocardial infarction) I21.4 Abuse of smoked substance F18.10
--- NOTE | 2020-12-03 12:57 | PC.NURSE ---
Lovenox administration clarified with Dr. Walters. Telephone order to retime order to today at 1800. RBTO.
[2020-12-03] MEDS: enoxaparin 40 mg/0.4 mL Syringe SUBCUT (17:17)
[2020-12-03] MEDS: OLANZapine 5 mg ODT PO (20:29)
[2020-12-03] MEDS: atorvastatin 40 mg Tablet 80 MG PO (20:30)
--- NOTE | 2020-12-03 21:02 | USCV_ITS ---
Jesus Polk Age: 60 Gender: M : 1960 Exam Date: 12/03/2020 06:34 Ordering Phys: Román Reynaga MD Technologist: Ernestina Springer Exam Location: [facility] [place] Indication: CHEST PAIN SOB BP: 113 / 84 HR: 65 Rhythm: Sinus Technical Quality: Adequate MEASUREMENTS (Male / Female) Normal Values 2D ECHO LV Diastolic Diameter PLAX 4.0 cm 4.2 - 5.9 / 3.9 - 5.3 cm LV Systolic Diameter PLAX 3.1 cm IVS Diastolic Thickness 1.1 cm 0.6 - 1.0 / 0.6 - 0.9 cm IVS Systolic Thickness 1.3 cm LVPW Diastolic Thickness 1.1 cm 0.6 - 1.0 / 0.6 - 0.9 cm LVPW Systolic Thickness 1.1 cm RV Chamber Size 2.5 cm LVOT Diameter 2.0 cm LV Ejection Fraction 2D Teich 44.1 % LV Ejection Fraction MOD 2C 36.4 % LV Ejection Fraction 2C AL 40.1 % LA Diameter 3.2 cm LA Width 3.3 cm LA Height 4.3 cm RA Width 3.2 cm RA Height 3.5 cm Aorta at Sinotubular Diameter 3.0 cm M-MODE LV Diastolic Diameter MM 3.9 cm 4.2 - 5.9 / 3.9 - 5.3 cm LV Systolic Diameter MM 3.1 cm LV Ejection Fraction MM Teich 44.3 % IVS Diastolic Thickness MM 1.2 cm 0.6 - 1.0 / 0.6 - 0.9 cm IVS Systolic Thickness MM 1.3 cm LVPW Diastolic Thickness MM 1.0 cm 0.6 - 1.0 / 0.6 - 0.9 cm LVPW Systolic Thickness MM 1.2 cm Aortic Annulus Diameter 3.0 cm LA Ao Ratio MM 1.0 MV E Point Septal Separation 1.7 cm DOPPLER AV Peak Velocity 125.0 cm/s LVOT Peak Velocity 80.0 cm/s AV Area Cont Eq vti 1.7 cm squared AV Area Cont Eq pk 2.0 cm squared MV Area PHT 5.0 cm squared Mitral E to A Ratio 0.8 MV E' Velocity 42.6 cm/s Mitral E to MV E' Ratio 11.0 Mitral E to LV E' Lateral Ratio 8.7 Mitral E to LV E' Septal Ratio 14.9 TR Peak Velocity 233.7 cm/s TR Peak Gradient 21.8 mmHg Right Atrial Pressure 3.0 mmHg Pulmonary Artery Systolic Pressu 24.8 mmHg PV Peak Velocity 101.5 cm/s RV Acceleration Time 0.1 s RV Ejection Time 0.3 s RV AcT/ET 0.4 FINDINGS Left Ventricle Mildly increased left ventricular cavity size. Moderately decreased left ventricular systolic function. Global left ventricular hypokinesis. Left ventricular ejection fraction is estimated at 45 %. Grade I/IV diastolic dysfunction (abnormal relaxation filling pattern), normal to mildly elevated filling pressures. Right Ventricle The right ventricle is normal in size and function. Right Atrium The right atrium is normal in size. Left Atrium The left atrium is normal in size. Mitral Valve Moderately thickened mitral valve. Moderate mitral annular calcification. No mitral valve stenosis. No mitral valve regurgitation. Aortic Valve Aortic valve sclerosis without stenosis or regurgitation. Tricuspid Valve Structurally normal tricuspid valve without significant stenosis or regurgitation. Pulmonary artery systolic pressure is normal. Pulmonic Valve Structurally normal pulmonic valve without significant stenosis. There is no pulmonic regurgitation. Pericardium Normal pericardium without effusion. Aorta Normal ascending aorta dimension. CONCLUSIONS 1-Mildly increased left ventricular cavity size. Moderately decreased left ventricular systolic function. Global left ventricular hypokinesis. Left ventricular ejection fraction is estimated at 45 %. Grade I/IV diastolic dysfunction (abnormal relaxation filling pattern), normal to mildly elevated filling pressures. 2-Aortic valve sclerosis without stenosis or regurgitation. 3-Moderately thickened mitral valve. Moderate mitral annular calcification. No mitral valve stenosis. No mitral valve regurgitation. 4-Structurally normal tricuspid valve without significant stenosis or regurgitation. Pulmonary artery systolic pressure is normal. 5-There is no pericardial effusion. 6-Right atrial pressure is around 5 mm of mercury. 7-No significant change since the prior echocardiogram study of 12/05/19. Linda Awad MD (Electronically Signed) Final Date: 03 December 2020 15:41 S
[2020-12-04 04:00] VITALS: BP 106/64; PULSE 80; RESP 22; TEMP 37.3; O2SAT 92
[2020-12-04 04:35] LABS: Basophils % 0.2 %; Eosinophils # 0.2 10^3/uL (0.0-0.8); Hematocrit 40.3 % (42.0-52.0); Hemoglobin 13.7 g/dL (11.7-16.6); Lymphocytes # 2.3 10^3/uL (0.8-4.8); Lymphocytes % 24.9 %; Mean Corpuscular Hemoglobin 32.1 pg (28.0-34.0); Mean Corpuscular Volume 94.4 fL (80-94); Mean Platelet Volume 9.9 fL (7.4-10.4); Monocytes # 0.7 10^3/uL (0.2-0.9); Monocytes % 7.5 %; Neutrophils # 5.91 10^3/uL (1.8-7.7); Neutrophils % 64.9 %; Nucleated Red Blood Cells % 0 %; Platelet Count 232 10^3/cmm (130-400); Red Blood Count 4.27 10^6/uL (4.1-5.3); Red Cell Distribution Width 12.8 % (12.1-15.1); White Blood Count 9.1 10^3/uL (4.0-10.0)
[2020-12-04 04:47] LABS: INR 0.99 (0.8-1.2)
[2020-12-04 04:57] LABS: Anion Gap 10.9 (5-19); Blood Urea Nitrogen 9 mg/dL (8-23); Calcium 8.5 mg/dL (8.5-10.5); Carbon Dioxide 25 mmol/L (22-29); Chloride 104 mmol/L (98-107); Glucose 90 mg/dL (65-115); Osmolality Calculated 280 mOsm/kg (285-295); Potassium 3.9 mmol/L (3.5-5.1); Sodium 136 mmol/L (136-145)
[2020-12-04 05:51] VITALS: PULSE 98
--- NOTE | 2020-12-04 06:00 | ECG_ITS ---
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1960 Requested By: Román Reynaga Order Number: [id number] Reading MD: DIANELYS ORELLANA Measurements Intervals [place] Rate: 72 P: 64 DE: 166 QRS: 33 QRSD: 98 T: -15 QT: 398 QTc: 436 Interpretive Statements SINUS RHYTHM INCOMPLETE RIGHT BUNDLE BRANCH BLOCK [90+ ms QRS DURATION, TERMINAL R IN V1/V2, 40+ ms S IN I/aVL/V4/V5/V6] NONSPECIFIC T-WAVE ABNORMALITY WARNING: DATA QUALITY MAY AFFECT INTERPRETATION Compared to ECG 12/03/2020 06:14:05 Incomplete right bundle-branch block now present T-wave abnormality now present ST (T wave) deviation no longer present Electronically Signed On 12-04-2020 19:28:06 EAP CONSULTANT by DIANELYS ORELLANA [email or web address]
[2020-12-04 07:15] VITALS: BP 112/75; PULSE 83; RESP 14; TEMP 36.3; O2SAT 94
[2020-12-04 07:26] VITALS: PULSE 79; RESP 18; O2SAT 94
[2020-12-04] MEDS: albuterol 8 gm MDI 1 PUFF INHALATION (07:26)
--- NOTE | 2020-12-04 07:44 | P.PN_ITS ---
Subjective Subjective: Interval history: Patient is doing well. He underwent successful revascularization of SVG to OM with VERONICA x1. Denies any chest pain, shortness of breath or palpitations. SVG to RCA was known occluded. SVG to LAD is patent. 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 Vitals/I&O/Wt Last Vital Signs Temp 97.3 F L 12/04/20 07:15 Pulse 79 12/04/20 07:26 Resp 18 12/04/20 07:26 BP 112/75 12/04/20 07:15 Pulse Ox 94 12/04/20 07:26 12/03/20 12/04/20 12/04/20 22:59 06:59 14:59 Intake Total 960 / 1082.15 Output Total 650 / 650 450 / 1100 Balance 310 / 432.15 -450 / -17.85 Weight last 48 hrs Weight 145 lb Physical Exam Narrative: EXAM NARRATIVE: GENERAL: Patient is alert, awake and oriented x3. [] NECK: No jugular vein distension. [] HEENT: No cyanosis. No icterus. No pallor. [] HEART: Regular S1 and S2. No murmur, rub or gallop. [] LUNGS: Clear to auscultate bilaterally. [] ABDOMEN: Soft, nontender and nondistended. Positive bowel sounds. No guarding, rebound or tenderness. [] CENTRAL NERVOUS SYSTEM: Grossly nonfocal. [] EXTREMITIES: Lower extremities with no edema bilaterally. Pulses palpable in the lower extremities, both dorsalis pedis and posterior tibial. [] Data : 12/04/20 04:14 12/04/20 04:14 A&P Assessment and plan (1) NSTEMI (non-ST elevated myocardial infarction): Status: Resolved (2) Hx of CABG: (3) Noncompliance: (4) Dyslipidemia (high LDL; low HDL): (5) CAD (coronary artery disease): (6) Abuse of smoked substance: Patient had NSTEMI with typical chest pain with significant troponin elevation. EKG showed ST depressions in lateral leads. He underwent successful revascularization with VERONICA x1 to SVG to OM. Now chest pain-free. Continue aspirin and Plavix. High intensity statin therapy. ECHO shows mildly reduced cardiac function with EF of 45% Thank you for involving us with care of this patient. Patient is stable to be discharged today. Please call with questions Attestations Medical Necessity Statement*: Care expected to cross 2 midnights Coding Level of Care Code Acute Wellness Specialist for Chg Fwd Diagnoses NSTEMI (non-ST elevated myocardial infarction) I21.4 Hx of CABG Z95.1 Noncompliance Z91.19 Dyslipidemia (high LDL; low HDL) E78.5 CAD (coronary artery disease) I25.10 Abuse of smoked substance F18.10
[2020-12-04] MEDS: tamsulosin 0.4 mg Capsule PO (08:23)
[2020-12-04] MEDS: famotidine 20 mg Tablet PO (08:23)
[2020-12-04] MEDS: lisinopril 2.5 mg Tablet PO (08:23)
[2020-12-04] MEDS: clopidogrel 75 mg Tablet PO (08:23)
[2020-12-04] MEDS: metoprolol succinate ER (24 HR) 25 mg Tablet PO (08:23)
[2020-12-04] MEDS: aspirin 81 mg EC Tablet PO (08:23)
[2020-12-04] MEDS: thiamine 100 mg Tablet PO (08:23)
--- NOTE | 2020-12-04 10:16 | PC.NURSE ---
heart to heart rounding Informed and case mg that pt does not have a primary doctor. Case mgt Hayden will see the pt and discuss options with signing up for an insurance as well.
--- NOTE | 2020-12-04 10:20 | P.DS_ITS ---
Discharge Providers Date of Admission: 12/03/20 11:58 Date of Discharge: December 04, 2020 Attending Provider at Admission: Román Reynaga MD Attending Provider at Discharge: Linda Chowdary MD Diagnoses at Discharge Discharge Diagnosis (1) NSTEMI (non-ST elevated myocardial infarction): Status: Acute (2) Abuse of smoked substance: Status: Acute Reason for Visit Reason for Visit: Chest Pain/Took 3 Nitro Hospital Course Hospital Course 60-year-old male who had history of coronary artery disease CABG, nicotine dependence presented to the hospital with chief complaint of typical chest pain. He was diagnosed with unstable angina and ACS protocol was initiated for NSTEMI. He underwent coronary angiogram by Dr. Walters on 12/03/2020(please refer to cardiac cath report). After intervention patient was feeling better, 6-minute walk test brought no chest pain or shortness of breath. PCP was arranged and financial services manager was provided via our social media executive. We will provide him with at least 3 months of dual antiplatelet therapy supply with our 340B plan. He was counseled to quit smoking, is willing to quit cold turkey however in the past he has cut down his daily cigarette usage from 1 pack to 8 cigarettes a day, his efforts were encouraged. Physical Exam Narrative: EXAM NARRATIVE: S1, S2 sinus rhythm Currently ambulating well without any chest discomfort or shortness of breath S1, S2 sinus rhythm no murmur No acute respite distress no audible wheezing or crackles No abdominal tenderness No neurological deficit EOMI, PERRLA Discharge Data Data Completed and Pending: Completed Studies During Hospitalization Category Date Time Status XR chest 1V silvina ble [id number] Stat Exams 12/02/20 17:39 Completed CV echo complete* [id number] Routine Ultrasound 12/03/20 21:02 Completed Pending at discharge Category Date Time Status [employer] request for service Routin e Exams 12/03/20 07:37 Taken Complete Blood Co unt w/Auto AM LABS Lab 12/05/20 04:00 Ordered Prothrombin Time INR AM LABS Lab 12/05/20 04:00 Ordered Labs from last 24 hours 12/04/20 12/04/20 12/04/20 04:14 04:14 04:14 WBC 9.1 RBC 4.27 Hgb 13.7 Hct 40.3 L MCV 94.4 H MCH 32.1 MCHC 34.0 RDW 12.8 Plt Count 232 MPV 9.9 Neut % (Auto) 64.9 Lymph % (Auto) 24.9 [place] % (Auto) 7.5 Eos % (Auto) 2.0 Baso % (Auto) 0.2 Neut # (Auto) 5.91 Lymph # (Auto) 2.3 [place] # (Auto) 0.7 Eos # (Auto) 0.2 Baso # (Auto) 0.0 Nucleated RBC % (a uto) 0 Nucleated RBCs # 0.0 PT 13.30 INR 0.99 Sodium 136 Potassium 3.9 Chloride 104 Carbon Dioxide 25 Anion Gap 10.9 BUN 9 Creatinine 0.6 L GFR Calculation 137.0 H Glucose 90 Calculated Osmolal ity 280 L Calcium 8.5 Vitals: Last Vital Signs Temp 97.3 F L 12/04/20 07:15 Pulse 79 12/04/20 07:26 Resp 18 12/04/20 07:26 BP 112/75 12/04/20 07:15 Pulse Ox 94 12/04/20 07:26 Discharge Plan Discharge Patient Disposition: Home Condition: Stable Prescriptions: New atorvastatin 40 mg Tablet 80 mg PO BEDTIME 30 Days Qty: 30 RF: 3 Continued fluticasone propion-salmeterol [Advair Diskus] 250-50 mcg/dose blister with device 1 inh INHALATION Q12H Qty: 60 RF: 0 metoprolol succinate 25 mg tablet extended release 24 hr 25 mg PO DAILY 30 Days Qty: 30 RF: 0 clopidogrel 75 mg tablet 75 mg PO DAILY 30 Days Qty: 90 RF: 3 lisinopril 2.5 mg tablet 2.5 mg PO DAILY 30 Days Qty: 30 RF: 0 albuterol sulfate 90 mcg/actuation HFA aerosol inhaler 1 inh INHALATION Q6H PRN (Reason: shortness of breath or wheezing) 30 Days Qty: 2 RF: 0 nitroglycerin [Nitrostat] 0.4 mg Tablet, Sublingual 0.4 mg sublingual Q5M PRN (Reason: Chest Pain) 10 Days Qty: 25 RF: 0 Spiriva with HandiHaler 18 mcg capsule, w/inhalation device 1 cap INHALATION DAILY 30 Days Qty: 30 RF: 0 tamsulosin 0.4 mg Capsule 0.4 mg PO DAILY 30 Days Qty: 30 RF: 0 Changed aspirin 81 mg tablet,delayed release (DR/EC) 81 mg PO DAILY@0900 30 Days Qty: 30 RF: 3 Discontinued olanzapine 5 mg Tablet,Disintegrating 5 mg PO BEDTIME Qty: 30 RF: 0 thiamine mononitrate (vit B1) [Vitamin B-1 (mononitrate)] 100 mg Tablet 100 mg PO DAILY Qty: 30 RF: 0 Discharge Orders: Discharge Order (Routine); Ordered 12/04/20 Ordered By: Linda Chowdary Referrals: Dereje Walters M.D [Physician] - 7-10 days Discharge Diet: Cardiac Discharge Activity: Increase activity as tolerated Patient Instructions: Coronary Angioplasty (DC), Left Heart Catheterization (DC) Activity Restrictions/Additional Instructions: Avoid smoking Please be aware you have to take aspirin and Plavix for at least 3 months and maximum 6 months, Your PCP will be arranged, you can continue taking lisinopril metoprolol succinate, atorvastatin Discharge Attestations Time Spent in Discharge Care*: less than 30 min Quality Metrics Clinical Quality Measures During this hospital stay, did patient experience: AMI Clinical Trial Participant: No Contraindication to aspirin (AMI): Aspirin given Contraindication to statin: Statin prescribed Contraindication to PCI: PCI performed Contraindication to Fibrinolytics: Other
--- NOTE | 2020-12-04 11:05 | PC.NURSE ---
Notified Physician Informed Dr via secure messaging regarding pt's concerned of elevated enzymes when he is on Atorvastatin.
--- NOTE | 2020-12-04 11:27 | PC.NURSE ---
Medication Informed pt that he will start taking Atorvastatin as ordered. Pt stated he will notbe taking it because his liver enzymes were elevated before and he stopped taking it. He verbalizes that he will not take it. Pt also mentioned that he needs refills on his plavix, lisinopril, metoprolol and aspirin. Pt stated he does not have any financial services representative to pay for his meds. Informed doctor regarding pt's concerns. Case mgt talked to the pt at bedside.
[2020-12-04 11:32] VITALS: BP 103/65; PULSE 83; RESP 16; TEMP 36.4; O2SAT 95
--- NOTE | 2020-12-04 11:46 | PC.NURSE ---
[facility]ed [facility] per doctor's order from Dr. Chowdary on 3 refills for Plavix, Metoprolol, Lisinopril and Atorvastatin.
--- NOTE | 2020-12-04 13:04 | PC.NURSE ---
pt stated he has aspirin at home Awaiting for employee pharmacy.
[2020-12-04 13:05] VITALS: BP 103/65; PULSE 83; RESP 16; TEMP 36.4; O2SAT 95
--- NOTE | 2020-12-04 13:24 | PC.NURSE ---
Addendum entered by Serge Lin RN 12/04/20 13:25: Instructed pt the importance of following up and seeing a primary doctor outpatient for medication refills. Pt stated he has options to go to [facility] to be listed to see a doctor there. Original Note: Meds to bed arrived Discharge patient via wheelchair. Discharge papers provided to pt.
== END 2020-12-04 13:26 | disposition home or self-care (01) | DRG 247 ==
LOC: ER 19:48 → CSU 20:21
PROVIDERS: Family Medicine; Internal Medicine; Admitting Provider Family Medicine; Emergency Provider Emergency Medicine; Visit Provider Internal Medicine
PROC: 027034Z Dilation of Coronary Artery, One Artery with Drug-eluting Intraluminal Device, Percutaneous Approach (ICD-10-PCS; principal; 2020-12-03 07:30)
PROC: 027034Z Dilation of Coronary Artery, One Artery with Drug-eluting Intraluminal Device, Percutaneous Approach (ICD-10-PCS; 2020-12-03 07:30)
DX: I21.4 Non-ST elevation (NSTEMI) myocardial infarction (principal); I25.810 Atherosclerosis of coronary artery bypass graft(s) without angina pectoris; Z95.1 Presence of aortocoronary bypass graft; Z95.5 Presence of coronary angioplasty implant and graft; E78.01 Familial hypercholesterolemia; J44.9 Chronic obstructive pulmonary disease, unspecified; I10 Essential (primary) hypertension; E78.5 Hyperlipidemia, unspecified; F17.210 Nicotine dependence, cigarettes, uncomplicated; N40.0 Benign prostatic hyperplasia without lower urinary tract symptoms; I25.2 Old myocardial infarction; T45.526A Underdosing of antithrombotic drugs, initial encounter; Z91.128 Patient's intentional underdosing of medication regimen for other reason; Z79.02 Long term (current) use of antithrombotics/antiplatelets; Z79.51 Long term (current) use of inhaled steroids
CPT/HCPCS: 36415; 71045; 80048; 80053; 80061; 83735; 83880; 84100; 84443; 84484; 85025; 85347; 85610; 92937; 93005; 93306; 93455; 94640; 94664; 96365; 96366; 96372; 96375; 99285; C1760; C1769; C1874; C1887; C1894; G0378; J1644; J1650; J1940; J2250; J2270; J3010; J3490; J3535; J7030; Q9967

== ENCOUNTER → 2020-12-11 09:53 | Outpatient (BNVA) | payer SELFPAY | PROVIDERS: Visit Provider Nurse Practitioner Family | DX: I25.810 Atherosclerosis of coronary artery bypass graft(s) without angina pectoris (principal) | CPT/HCPCS: 80048 ==

== ENCOUNTER → 2021-04-19 11:56 | Outpatient (BNVA) | payer MEDICARE, SELFPAY | PROVIDERS: Visit Provider Nurse Practitioner Family | DX: E78.5 Hyperlipidemia, unspecified (principal); J44.9 Chronic obstructive pulmonary disease, unspecified; I10 Essential (primary) hypertension; I25.10 Atherosclerotic heart disease of native coronary artery without angina pectoris; F17.200 Nicotine dependence, unspecified, uncomplicated | CPT/HCPCS: 80053; 80061; 85025 ==

== ENCOUNTER → 2021-07-07 09:37 | Outpatient (BNVA) | payer MEDICARE, SELFPAY | PROVIDERS: Visit Provider Family Medicine | DX: E78.5 Hyperlipidemia, unspecified (principal) | CPT/HCPCS: 80053; 80061 ==

== ENCOUNTER → 2021-07-12 09:30 | Outpatient (BNVA) | payer MEDICARE, SELFPAY | PROVIDERS: Visit Provider Nurse Practitioner Family | DX: E78.5 Hyperlipidemia, unspecified (principal); R35.0 Frequency of micturition | CPT/HCPCS: 81000 ==

== ENCOUNTER → 2022-06-17 13:53 | Outpatient (BNVA) | payer MEDICARE, SELFPAY | PROVIDERS: Visit Provider Nurse Practitioner Family | DX: E78.5 Hyperlipidemia, unspecified (principal); J44.9 Chronic obstructive pulmonary disease, unspecified | CPT/HCPCS: 80053; 80061; 85025 ==

== ENCOUNTER → 2022-08-01 11:27 | Outpatient (BNVA) | payer MEDICARE, SELFPAY | PROVIDERS: PCP Family Medicine; Visit Provider Internal Medicine Cardiovascular Disease | DX: R07.9 Chest pain, unspecified (principal); F17.200 Nicotine dependence, unspecified, uncomplicated; I25.10 Atherosclerotic heart disease of native coronary artery without angina pectoris; E78.5 Hyperlipidemia, unspecified; J44.9 Chronic obstructive pulmonary disease, unspecified; Z95.5 Presence of coronary angioplasty implant and graft; Z95.1 Presence of aortocoronary bypass graft; I10 Essential (primary) hypertension; I25.2 Old myocardial infarction | CPT/HCPCS: 99213; 99214 ==

== ENCOUNTER 2022-08-16 05:54 | Outpatient (CLI) | payer MEDICARE, MEDICAID, SELFPAY ==
[2022-08-16] VITALS (36 sets, daily range): BP systolic 95–116; BP diastolic 56–78; PULSE 54–73; RESP 8–27; TEMP 36.5–36.8; O2SAT 93–96; BMI 26.7
[2022-08-16] MEDS: diphenhydrAMINE 50 mg Capsule PO (06:15)
[2022-08-16 06:26] LABS: Basophils % 0.3 %; Eosinophils # 0.3 10^3/uL (0.0-0.8); Eosinophils % 3.3 %; Hematocrit 46.7 % (42.0-52.0); Hemoglobin 15.6 g/dL (11.7-16.6); Lymphocytes # 2.8 10^3/uL (0.8-4.8); Mean Corpuscular HGB Conc 33.4 g/dL (30.0-36.0); Mean Corpuscular Volume 92.7 fl (80-94); Mean Platelet Volume 9.5 fL (7.4-10.4); Monocytes # 0.7 10^3/uL (0.2-0.9); Monocytes % 7.7 %; Neutrophils # 5.25 10^3/uL (1.8-7.7); Neutrophils % 57.3 %; Nucleated Red Blood Cells % 0 %; Platelet Count 266 10^3/cmm (130-400); Red Blood Count 5.04 10^6/uL (4.1-5.3); Red Cell Distribution Width 13.1 % (12.1-15.1); White Blood Count 9.2 10^3/uL (4.0-10.0)
[2022-08-16 06:43] LABS: Anion Gap 13.1 (5-19); Blood Urea Nitrogen 10 mg/dL (8-23); Calcium 9.1 mg/dL (8.5-10.5); Carbon Dioxide 26 mmol/L (22-29); Chloride 101 mmol/L (98-107); Glucose 92 mg/dL (65-115); Osmolality Calculated 281 mOsm/kg (285-295); Potassium 4.1 mmol/L (3.5-5.1); Sodium 136 mmol/L (136-145)
--- NOTE | 2022-08-16 07:00 | XACV_ITS ---
Exam Room: 2 Ht: 160 cm Wt: 68 kg BSA: 1.76 m2 Gender: Male : 1960 Any Known Allergies: No known allergies Exam Priority: Routine Procedure(s): Procedure Description: Diagnostic procedure Diagnostic Cath Status: Elective Diagnostic Findings * Left main artery: Short. LAD: Ostially occluded. Left circumflex artery: Mid vessel is occluded. Proximal to mid has severe diffuse disease. RCA: Mid vessel is totally occluded.. * Ascending Aorta to Distal Right Coronary Artery graft: Occluded SVG to LAD: Has severe 80% proximal stenosis.. * Ascending Aorta to First Obtuse Marginal Branch Segment graft: patent. * Coronary angiography shows right dominance. Conclusions 1. Left main artery: Short. LAD: Ostially occluded. Left circumflex artery: Mid vessel is occluded. Proximal to mid has severe diffuse disease. RCA: Mid vessel is totally occluded.. 2. SVG to LAD has a severe proximal 80% stenosis. 3. Patient has prior CABG. 4. Moderate left ventricular systolic dysfunction. Ejection fraction of 35%. Recommendations * Given cardiac blood supply is through SVG to LAD and SVG to OM, we decided to stop here and discuss with patient different options. We will discuss referral to CT surgery for possible redo surgery vs tertiary care center referral for PCI vs staged PCI of SVG to LAD at our center.. * Aggressive medical therapy. Interventional RX Recommendation: PCI w/o planned CABG Diagnostic RX Recommendation: PCI w/o planned CABG Anticoagulation: Heparin Ventriculography Ejection Fraction: 35.0 % Pressures Phase:Rest AO : 3 / 0 ( 1 ) @ 7:56:00 AM 92 / 54 ( 71 ) @ 8:11:00 AM 95 / 56 ( 73 ) @ 8:11:00 AM LV : @ 8:08:00 AM 94 @ 8:08:00 AM @ 8:09:00 AM 96 @ 8:10:00 AM @ 8:11:00 AM 95 @ 8:11:00 AM Valves Phase:DefaultPhase AV : 0.0 @ 8:36:22 AM AV Mean Gradient: 0.0 @ 8:36:22 AM Clinical Evaluation EBL: 5mL-10mL Procedural Details Procedure Consent Obtained. Admit Source: Out Patient. Pre-Procedure Time Out. Identified patient by full name and date of as verbalized by the patient/guarantor. Does the consent match the physician's order: Yes. Accurate & Complete Informed Consent: Yes. Inpatient/Outpatient History & Physical on Chart: Yes. If H&P is completed, is and addenduem needed: No; If yes, is the addendum complete: N/A. Visualize and Verify Site with Patient/Guarantor: N/A. Relevant Radiology Images available: N/A. The risks, benefits, and alternatives of sedation and/or procedure were discussed by physician. The patient agrees to continue. Procedure started. [facility] Clinical Fraility Score: 3: Managing Well. 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 Chest Pain Symptom Assessment: Typical Angina Symptoms. Cardiovascular Instability: No,. Correct patient, site and procedure confirmed by cath team. Current diagnosis: worsining angina. PERRLA. Strong, equal hand cross tie tram loader bilaterally. Lungs clear x 5 lobes. IV Site on Arrival: 20 gauge in the right anticubital. IV Fluids: 0.9% NaCl at KVO. 0 mL infused prior to solar lab technician. Pre Procedural Pulses: bilateral dorsalis pedis was 2+. Pre Procedural Pulses: bilateral posterior tibial was 2+. Pre Procedural Pulses: bilateral radial was 2+. Oxygen started at 20liters/min via nasal canula. bilateral groins was prepped with chloroprep then draped in the usual sterile fashion. Physician notified. Baseline sample Acquired. HR: 55 BPM. Physician arrived. Physician scrubbed in. Immediate Pre-Procedure Time Out. Correct Patient: Yes; Correct Procedure: Yes; Correct Site: Yes; Correct Patient Position: Yes; Correct Supplies: Yes; Dried Flammable Prep: Yes; Blood Products Available: N/A;. Lidocaine 1% infiltrated to the right groin. Arterial access obtained with micropuncture set. An attempt to gain access to the right femoral artery was unsuccessful. Manual pressure was held as needed to stop the bleeding. Arterial access obtained with micropuncture set. A 5 [place] JL4 catheter in over wire. Multiple views taken of left coronary artery. Catheter removed over the standard wire. A 5 [place] JR4 catheter in over wire. Multiple views taken of right coronary artery. SVG's to RCA occluded. SVG's to Diaganol visualized and patent. SVG's to OM visualized and patent. Catheter out. A Right femoral angiogram was performed for assessment for impella insertion. A 5 [place] Angled Pig catheter in over wire. EDP Sample taken: LV 88/1,22; HR: 74 BPM; SpO2: 99%. LV gram performed in [place] @ 10 mL/second for a total of 30 mL. EDP Sample taken: LV 96/9,23; HR: 65 BPM; SpO2: 100%. EDP Sample taken: LV 91/15,23; HR: 66 BPM; SpO2: 99%. Pullback taken: LV 95/5,23; AO 92/54(71); Mean: 0mmHg, Peak to Peak: 0mmHg, SEP: 17sec/min; HR: 63 BPM; SpO2: 99%. Catheter removed over the standard wire. A 5 [place] Angled Pig catheter in over wire. Abdominal aortogram performed in AP @ 10 mL/sec for a total of 30 mL. Catheter removed over the standard wire. Sheath(s) sutured into position with 2-0 silk and sterile 4x4's and Op-site applied over the site. No oozing or signs and symptoms of hematoma noted. Post Procedure: Pulses reassessed and unchanged. PERRLA. Strong, equal hand cross tie tram loader bilaterally. No VTE prophylaxis required. Post-op diagnosis: severe stensosis svg to lad. Complications: none. Estimated blood loss: 5mL-10mL. Responsiveness - Normal response to verbal stimuli; alert and oriented, PERRLA. Airway - Unaffected, no intervention required; spontaneous ventilation. Circulation: W/N/L, pulses unchanged. Nausea/Vomiting: No. Medication's Wasted: Lidocaine 1% = 10 mg. Medication's Wasted: Heparin = 4000 units. Total IV fluids: 50 mL. Procedure completed. Patient transferred by bed to CPRU. Vital chart was stopped. Access Site Site: Right Femoral artery Sheath Size: 6 Fr Hemostasis Success: Unsuccessful Procedure Medications Start: 7:47 AM Stop: 7:47 AM Medication: Versed Amount: 1 mg Route: I.V. Start: 7:47 AM Stop: 7:47 AM Medication: Fentanyl Amount: 50 mcg Route: I.V. Start: 7:56 AM Stop: 7:56 AM Medication: Versed Amount: 1 mg Route: I.V. Start: 8:07 AM Stop: 8:07 AM Medication: Fentanyl Amount: 50 mcg Route: I.V. I, the attending physician, have reviewed and verified all procedure medications. Yes, all medications given per verbal order History/Risk Factors Hypertension: Yes Dyslipidemia: Yes Peripheral Arterial Disease (PAD): No Myocardial Infarction (CA): No Obesity: No Tobacco Use: Current/Recent(w/in 1 year) Prior Interventions PCI: Yes CABG: Yes Valve Surgery: No Date of PCI: 12/03/2020 Report Signatures Finalized by Dereje Walters MD on 08/30/2022 05:27 PM
--- NOTE | 2022-08-16 07:38 | W.PM.OPSUD ---
Surgery/Procedure H&P Update DATE OF PROCEDURE: August 16, 2022 DATE H&P PERFORMED: 08/01/22 H&P UPDATE INFORMATION: I have reviewed H&P completed within last 30 days, I have examined patient prior to procedure and No changes to prior documentation PREOP DIAGNOSIS: Worsening angina PRIMARY INDICATION FOR PROCEDURE: Worsening angina PLANNED PROCEDURE: Operation Date: 08/16/22 07:00 Proposed Procedures p Left Cardiac Catheterization Coronaries w/grafts 42858, F17.200,I25.10,R07.9(Left) - Dereje Walters M.D Possible percutaneous coronary intervention PATIENT REASSESSED PRIOR TO SEDATION, WITH NO CHANGE NOTED: Yes PHYSICAL EXAM: alert, oriented x 3 and clear to auscultation bilaterally AIRWAY EVAL/ANESTHESIA PLAN: ASA III, Local Anesthesia, Risks, benefits & alternatives of sedation and/or procedure discussed and Patient agrees to continue as planned ADDITIONAL INFORMATION: Moderate sedation
--- NOTE | 2022-08-16 09:46 | PC.NURSE ---
Around 0945: Orders received to transfer patient to CSU. Sheath in place to right groin, connected to pressure bag. Dsg clean, dry, et intact. Vitals stable. Report given to VARSHA Escobar.
--- NOTE | 2022-08-16 11:25 | PC.NURSE ---
Patient returned from sugar laboratory assistant at 1030. R femoral sheath pulled at 1056. Patient tolerated well. Patient remains stable. 2x2 dressing cvoered with tegaderm in place. Patient verbalized understanding not to bend right leg or hip for the next few hours.
--- NOTE | 2022-08-16 17:21 | PC.NURSE ---
Patient was given discharge instructions and education following sheath removal. Patient given follow up appointment. Patient verbalized understanding of all instructions and ambulated with nurse to the surgical services door. No hematoma formation on floor. Dressing dry and intact upon discharge.
== END 2022-08-16 17:14 | disposition home or self-care (01) ==
LOC: CCL 05:57 → CSU 09:50
PROVIDERS: PCP Family Medicine; Visit Provider Internal Medicine
DX: I25.110 Atherosclerotic heart disease of native coronary artery with unstable angina pectoris (principal); Z95.1 Presence of aortocoronary bypass graft; I10 Essential (primary) hypertension; E78.5 Hyperlipidemia, unspecified
CPT/HCPCS: 36415; 75625; 80048; 85025; 93459; 96365; 99152; 99153; C1769; C1887; C1894; G0378; J1644; J2250; J3010; Q0163; Q9967

== ENCOUNTER → 2022-08-24 14:47 | Outpatient (BNVA) | payer MEDICARE, SELFPAY | PROVIDERS: PCP Family Medicine; Visit Provider Nurse Practitioner Family | DX: I25.10 Atherosclerotic heart disease of native coronary artery without angina pectoris (principal); Z95.1 Presence of aortocoronary bypass graft; F17.210 Nicotine dependence, cigarettes, uncomplicated; I25.2 Old myocardial infarction; I10 Essential (primary) hypertension | CPT/HCPCS: 36415; 80048; 99213 ==

== ENCOUNTER 2022-09-07 09:01 | Outpatient (CLI) | payer MEDICARE, MEDICAID, SELFPAY ==
[2022-09-07] VITALS (14 sets, daily range): BP systolic 92–127; BP diastolic 57–84; PULSE 58–83; RESP 10–25; TEMP 36.6; O2SAT 93–99; BMI 26.5
[2022-09-07] MEDS: diphenhydrAMINE 50 mg Capsule PO (09:40)
--- NOTE | 2022-09-07 10:00 | XACV_ITS ---
Exam Room: 2 Ht: 160 cm Wt: 68 kg BSA: 1.76 m2 Gender: Male : 1960 Any Known Allergies: No known allergies Exam Priority: Routine Procedure(s): Procedure Description: Diagnostic procedure Procedure Description: PCI procedure Procedure Description: Drug Eluting Coronary Stent Procedure Description: Miscellaneous Procedure Description: ACT Procedure Description: Coronary Angiography Diagnostic Cath Status: Elective Diagnostic Findings * INDICATION: 61 Yr old man with PMH of CAD S/P cabg. Patient had undergone coronary angiogram few weeks back for worsening anginal symptoms that showed only blood supply to the heart were patent SVG to LAD and SVG to OM. SVG to LAD had a severe proximal 80% stenosis. We stopped the procedure at that time to discuss it with patient and family given high risk nature of the procedure. All options were given to him including redo CABG, transfer to tertiary care facility for alternate site access Impella placement with high risk PCI as his access is not ideal for Impella placement. He does not want to go to a different facility for the procedure. He understands the risks including bleeding, infection, kidney function worsening, heart attack, stroke or . He wants to proceed with the procedure. It was also discussed with him that we do not have CT surgery back up available in the hospital and he understands it. * Only SVG to LAD was engaged and intervened upon. It showed proximal SVG severe 80% stenosis. For full diagnostic report, please refer to procedure report from 08/16/2022. PCI Status: Elective PCI Indication: Other Interventional Findings * Procedure detail: We engaged SVG to LAD with a JR4 guide catheter. IV heparin was administered to maintain ACT above 250 s. 0.014 run-through guidewire was used to cross the proximal SVG catheter stenosis and was put in distal vessel. We placed a 2.75 x 26 mm resolute [place] drug-eluting stent. Right after that patient developed no reflow in the graft. Patient had chest pain. Multiple doses of Cardene were injected initially through TelePort microcatheter and then through guide catheter. Guide was switched to AL 0.75 for better engagement and support. Flow was restored and chest pain resolved. Guidewire and guide catheter were removed. Patient left the International Logistics Coordinator in a stable condition.. Conclusions 1. Severe proximal SVG to LAD graft stenosis s/p successful revascularization with 1 stent. Recommendations * Transferred to ICU for close monitoring. * The patient develops chest pain, will start on Aggrastat and nitro drip. * Dual anti-platelet therapy for at least 1 year. * High intensity statin therapy. * Outpatient cardiology follow up in 4 weeks. Interventional RX Recommendation: PCI w/o planned CABG Diagnostic RX Recommendation: PCI w/o planned CABG Anticoagulation: Heparin Pressures Phase:Rest AO : 92 / 70 ( 81 ) @ 11:27:00 AM 95 / 76 ( 86 ) @ 11:34:00 AM 99 / 78 ( 89 ) @ 11:35:00 AM 89 / 69 ( 80 ) @ 11:38:00 AM 101 / 75 ( 88 ) @ 11:40:00 AM Clinical Evaluation EBL: 5mL-10mL Procedural Details Pre-Procedure Time Out. Identified patient by full name and date of as verbalized by the patient/guarantor. Does the consent match the physician's order: Yes. Accurate & Complete Informed Consent: Yes. Inpatient/Outpatient History & Physical on Chart: Yes. If H&P is completed, is and addenduem needed: No; If yes, is the addendum complete: N/A. Visualize and Verify Site with Patient/Guarantor: N/A. Relevant Radiology Images available: N/A. Pre-op teaching completed and patient verbalized understanding. The risks, benefits, and alternatives of sedation and/or procedure were discussed by physician. The patient agrees to continue. Admit Source: Out Patient. Procedure started. Physician arrived. [facility] Clinical Fraility Score: 3: Managing Well. International Logistics Coordinator Indications: Worsening Angina. Chest Pain Symptom Assessment: Typical Angina Symptoms. Cardiovascular Instability: No,. PERRLA. Strong, equal hand sandwich board carrier bilaterally. Lungs clear x 5 lobes. Correct patient, site and procedure confirmed by cath team. Current diagnosis: known PCI. IV Site on Arrival: 20 gauge in the right anticubital. IV Site on Arrival: 20 gauge in the left upper arm. Pre Procedural Pulses: bilateral radial was 2+. Pre Procedural Pulses: bilateral posterior tibial was Doppled. Pre Procedural Pulses: bilateral dorsalis pedis was Doppled. Oxygen started at 2liters/min via nasal canula. bilateral groins was prepped with chloroprep then draped in the usual sterile fashion. Physician notified. Baseline sample Acquired. HR: 66 BPM. Physician scrubbed in. Immediate Pre-Procedure Time Out. Correct Patient: Yes; Correct Procedure: Yes; Correct Site: Yes; Correct Patient Position: Yes; Correct Supplies: Yes; Dried Flammable Prep: Yes; Blood Products Available: N/A;. Lidocaine 1% infiltrated to the right groin. An attempt to gain access to the right femoral artery was unsuccessful. Manual pressure was held as needed to stop the bleeding. Arterial access obtained with micropuncture set. Sheath out over wire. Going in with dialtor only. Dialator out, sheath back in over wire. Lidocaine 1% infiltrated to the left groin. Wire and needle out. Arterial access obtained with micropuncture set. 6 occitan JR 4 guide catheter was inserted over the wire. Meagan Akins was relieved by Priti Heller RN as monitoring person. Runthrough guidewire was advanced through the guide catheter to lesion in the prox LAD. Stent inserted to lesion in the prox LAD. Inflation Number : 1 Danielle Govea PEDRO 2.75X26 VERONICA -Lot Number# [id number] exp 10/13/2022 was prepped and advanced across the Aorta Left -> Prox LAD. The stent was deployed at 12 NELL for 0:15 seconds. Results checked. Teleport microcatheter inserted over the wire. Teleport catheter removed. 300cm Runthrough wire inserted to Prox Lad. Teleport catheter inserted over the Runthrough wire. AP pads applied to patient chest. 300cm Runthrough wire removed. Teleport catheter out. Results checked. Wire out. Guide catheter out. 6 occitan AL 0.75 guide catheter was inserted over the wire. ACT drawn. Results 221 seconds. Therapeutic limits - pre-heparin administration 90-150 seconds and monitoring heparin during a vascular procedure >250 seconds. Results checked. Guide catheter out. ACT drawn. Results 287 seconds. Therapeutic limits - pre-heparin administration 90-150 seconds and monitoring heparin during a vascular procedure >250 seconds. Post Procedure: Pulses reassessed and unchanged. A Suture was successful obtaining hemostatsis at the Right Femoral artery insertion site. A Suture was successful obtaining hemostatsis at the Left Femoral artery insertion site. PERRLA. Strong, equal hand sandwich board carrier bilaterally. No VTE prophylaxis required. Medication's Wasted: Lidocaine 1% = 2 mL. Medication's Wasted: Heparin = 1000 u. Medication's Wasted: Other = Cardene 24 mg. Total IV fluids: 60 mL. Medication's Wasted: Other = Fentanyl 25 mcg. Medication's Wasted: Other = Versed 1 mg. Post-op diagnosis: Severe SVG to Prox LAD stenosis, S/P successful stent placement. Complications: none. Estimated blood loss: 5mL-10mL. Responsiveness - Normal response to verbal stimuli; alert and oriented, PERRLA. Airway - Unaffected, no intervention required; spontaneous ventilation. Circulation: W/N/L, pulses unchanged. Nausea/Vomiting: No. Procedure completed. Patient transferred by bed to ICU. Vital chart was stopped. Access Site Site: Right Femoral artery Sheath Size: 6 Fr Hemostasis Method: Suture Hemostasis Success: Successful Site: Left Femoral artery Sheath Size: 4 Fr Hemostasis Method: Suture Hemostasis Success: Successful Procedure Medications Start: 11:11 AM Stop: 11:11 AM Medication: Versed Amount: 1 mg Route: I.V. Start: 11:11 AM Stop: 11:11 AM Medication: Fentanyl Amount: 50 mcg Route: I.V. Start: 11:18 AM Stop: 11:18 AM Medication: Versed Amount: 1 mg Route: I.V. Start: 11: AM Stop: 11: AM Medication: Heparin Amount: 6000 units Route: I.V. Start: 11:33 AM Stop: 11:33 AM Medication: Versed Amount: 1 mg Route: I.V. Start: 11:33 AM Stop: 11:33 AM Medication: Fentanyl Amount: 50 mcg Route: I.V. Start: 11:36 AM Stop: 11:36 AM Medication: Cardene Amount: 250 mcg Route: I.C. Start: 11:36 AM Stop: 11:36 AM Medication: Heparin Amount: 1000 units Route: I.V. Start: 11:37 AM Stop: 11:37 AM Medication: Cardene Amount: 250 mcg Route: I.C. Start: 11:42 AM Stop: 11:42 AM Medication: Heparin Amount: 1000 units Route: I.V. Start: 11:43 AM Stop: 11: AM Medication: Cardene Amount: 250 mcg Route: I.C. Start: 11:45 AM Stop: 11:45 AM Medication: Heparin Amount: 1000 units Route: I.V. Start: 11:44 AM Stop: 11:44 AM Medication: Cardene Amount: 250 mcg Route: I.C. Start: 11:55 AM Stop: 11:55 AM Medication: Plavix Amount: 300 mg Route: P.O. I, the attending physician, have reviewed and verified all procedure medications. Yes, all medications given per verbal order History/Risk Factors Hypertension: Yes Dyslipidemia: Yes Peripheral Arterial Disease (PAD): No Myocardial Infarction (TN): Yes Obesity: No Prior Interventions PCI: Yes CABG: Yes Valve Surgery: No Date of PCI: 12/03/2020 Report Signatures Finalized by Dereje Walters MD on 09/18/2022 12:04 PM
--- NOTE | 2022-09-07 10:57 | W.PM.OPSUD ---
Surgery/Procedure H&P Update DATE OF PROCEDURE: September 07, 2022 DATE H&P PERFORMED: 08/24/22 H&P UPDATE INFORMATION: I have reviewed H&P completed within last 30 days, I have examined patient prior to procedure and No changes to prior documentation CHANGES TO PREVIOUS DOCUMENTATION: Patient had undergone coronary angiogram that showed only blood supply to the heart was 2 patent SVG to LAD and SVG to OM. SVG to LAD had a severe proximal 80% stenosis. We stopped the procedure at that time to discuss it with patient and family given high risk nature of the procedure. All options were given to him including redo CABG, transfer to tertiary care facility for alternate site access Impella placement with high risk PCI as his access is not ideal for Impella placement. He does not want to go to a different facility for the procedure. He understands the risks including bleeding, infection, kidney function worsening, heart attack, stroke or . He wants to proceed with the procedure. It was also discussed with him that we do not have CT surgery back up available in the hospital and he understands it. We will proceed with high risk PCI with bilateral access placement and incase of any complication/decompensation, will proceed with impella placement. PREOP DIAGNOSIS: Worsening angina/ Staged PCI of SVG to LAD PRIMARY INDICATION FOR PROCEDURE: Worsening angina/ Staged PCI of SVG to LAD PLANNED PROCEDURE: Operation Date: 09/07/22 10:00 Proposed Procedures p Left Heart Cath 80148 Z95.1,I25.10(Left) - Dereje Walters M.D Percutaneous coronary intervention PATIENT REASSESSED PRIOR TO SEDATION, WITH NO CHANGE NOTED: Yes PHYSICAL EXAM: alert, oriented x 3, clear to auscultation bilaterally and regular rate & rhythm AIRWAY EVAL/ANESTHESIA PLAN: ASA III, Local Anesthesia, Risks, benefits & alternatives of sedation and/or procedure discussed and Patient agrees to continue as planned ADDITIONAL INFORMATION: Possible percutaneous coronary intervention
[2022-09-07] MEDS: nitroglycerin drip 50 MG/250 ML PREMIX IV (12:52)
--- NOTE | 2022-09-07 13:44 | ECG_ITS ---
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 Measurements Intervals [place] Rate: 59 P: 52 MT: 169 QRS: 48 QRSD: 79 T: 33 QT: 427 QTc: 425 Interpretive Statements SINUS BRADYCARDIA LOW QRS VOLTAGE IN PRECORDIAL LEADS [QRS DEFLECTION < 1.0 mV IN CHEST LEADS] Compared to ECG 12/04/2020 06:32:05 Low QRS voltage now present Sinus rhythm no longer present Incomplete right bundle-branch block no longer present T-wave abnormality no longer present Electronically Signed On 09-07-2022 18:13:49 PHARMACIST PER DIEM by Rajwinder Palm M.D. [id number]
--- NOTE | 2022-09-07 15:00 | PC.NURSE ---
Pt was admitted to ICU at 1200 via bed from laboratory secretary. Left and right groin sheaths in place with no bleeding noted. Patient complaining of chest pressure at 5/10. EKG done and taken to Dr. Walters. New order for Nitro drip. Shortly after drip started the patient began complaining of chest pain 4/10 with pain radiating to left shoulder. Skin cool and patient diaphoretic. Dr. Walters aware.
[2022-09-07] MEDS: sodium chloride 0.9% 250 ML 999 ML IV (15:07)
[2022-09-07] MEDS: ondansetron 2 mg/ML SDV 2 mL 4 MG IVP (15:07)
[2022-09-07 15:11] LABS: Partial Thromboplastin Time 141.6 SECONDS (23.9-36.7)
[2022-09-07] MEDS: tirofiban 5 MG/100 ML PREMIX 8.2 MG IV (16:10)
--- NOTE | 2022-09-07 17:53 | P.MISC_ITS ---
Miscellaneous Note Purpose of Documentation: Brief procedure note Note: Patient underwent successful revascularization of the proximal SVG to LAD PCI with DESX 1. Patient developed no-reflow treated with Cardene. At end of procedure , patient had a PASTOR 3 flow in the graft. Only residual slow flow was in very distal [place] vessel. In the ICU he had chest discomfort episodes that were treated with nitro gtt. Aggrastat was also started for 6 hours. Chest pain was controlled. No EKG changes consistent with ST elevation.
[2022-09-07 18:07] LABS: Partial Thromboplastin Time 28.3 SECONDS (23.9-36.7)
--- NOTE | 2022-09-07 18:52 | PC.NURSE ---
Left groin sheath was removed at 1840. Dressing was applied to a non bleeding site. No hematoma noted to area. Patient tolerated well.
[2022-09-07] MEDS: morphine 4 mg/mL SDV 1 mL 2 MG IVP (19:29)
[2022-09-08] VITALS (10 sets, daily range): BP systolic 101–132; BP diastolic 67–77; PULSE 69–95; RESP 17–23; O2SAT 91–93
[2022-09-08] MEDS: morphine 4 mg/mL SDV 1 mL 2 MG IVP (02:20)
[2022-09-08 03:25] LABS: Basophils % 0.2 %; Eosinophils # 0.1 10^3/uL (0.0-0.8); Eosinophils % 1.4 %; Hematocrit 41.8 % (42.0-52.0); Hemoglobin 13.7 g/dL (11.7-16.6); Lymphocytes # 1.7 10^3/uL (0.8-4.8); Lymphocytes % 18.4 %; Mean Corpuscular HGB Conc 32.8 g/dL (30.0-36.0); Mean Corpuscular Hemoglobin 31.1 pg (28.0-34.0); Mean Platelet Volume 9.9 fL (7.4-10.4); Monocytes # 0.7 10^3/uL (0.2-0.9); Monocytes % 7.3 %; Neutrophils # 6.51 10^3/uL (1.8-7.7); Neutrophils % 71.9 %; Nucleated Red Blood Cells % 0 %; Platelet Count 235 10^3/cmm (130-400); Red Cell Distribution Width 13.3 % (12.1-15.1); White Blood Count 9.1 10^3/uL (4.0-10.0)
[2022-09-08 03:53] LABS: Blood Urea Nitrogen 8 mg/dL (8-23); Calcium 8.7 mg/dL (8.5-10.5); Carbon Dioxide 25 mmol/L (22-29); Chloride 102 mmol/L (98-107); Glomerular Filtration Rate 114.3 mL/min (90-130); Glucose 99 mg/dL (65-115); Osmolality Calculated 276 mOsm/kg (285-295); Sodium 134 mmol/L (136-145)
[2022-09-08 04:01] LABS: Anion Gap 11.7 (5-19); Potassium 4.7 mmol/L (3.5-5.1)
--- NOTE | 2022-09-08 08:40 | PM.DCS ---
Discharge Providers Date of Admission: 09/07/2022 Date of Discharge: September 08, 2022 Attending Provider at Admission: Dereje Walters MD Attending Provider at Discharge: Dereje Walters M.D Primary Care Provider: Siri Bajwa MD Reason for Visit Reason for Visit: Revascularization of SVG to LAD Brief History: 61 Yr old man with PMH of CAD S/P cabg. Patient had undergone coronary angiogram few weeks back for worsening anginal symptoms that showed only blood supply to the heart were patent SVG to LAD and SVG to OM.? SVG to LAD had a severe proximal 80% stenosis.? We stopped the procedure at that time to discuss it with patient and family given high risk nature of the procedure.? All options were given to him including redo CABG, transfer to tertiary care facility for alternate site access Impella placement with high risk PCI as his access is not ideal for Impella placement.? He does not want to go to a different facility for the procedure.? He understands the risks including bleeding, infection, kidney function worsening, heart attack, stroke or .? He wants to proceed with the procedure. It was also discussed with him that we do not have CT surgery back up available in the hospital and he understands it. We will proceed with high risk PCI with bilateral access placement and incase of any complication/decompensation, will proceed with impella placement. Hospital Course Hospital Course Patient underwent successful revascularization of SVG to LAD. He developed temporary no reflow phenomenon. Cardene was injected into the graft. This restored her blood flow. At the end of procedure patient had brisk PASTOR-3 flow with only residual and no reflow in the very distal [place] vessel. Patient had on and off chest pain symptoms in the ICU which were treated with nitro drip. He was also put on Aggrastat drip for 6 hours. Overnight he stayed for chest pain-free. No EKG changes were seen. This morning he is stable and chest pain-free. He wants to go home and will be discharged home with close follow-up as outpatient. Physical Exam Narrative: GENERAL: Patient is alert, awake and oriented x3. [] NECK: No jugular vein distension. [] HEENT: No cyanosis. No icterus. No pallor. [] HEART: Regular S1 and S2. No murmur, rub or gallop. [] LUNGS: Clear to auscultate bilaterally. [] ABDOMEN: Soft, nontender and nondistended. Positive bowel sounds. No guarding, rebound or tenderness. [] CENTRAL NERVOUS SYSTEM: Grossly nonfocal. [] EXTREMITIES: Lower extremities with no edema bilaterally. Pulses palpable in the lower extremities, both dorsalis pedis and posterior tibial. [] Discharge Data Studies Completed and Pending Pending at discharge Category Date Time Status IDEA MAN request for service Routine Exams 09/07/22 10:00 Taken Basic Metabolic Panel AM LABS Lab 09/09/22 04:00 Ordered Basic Metabolic Panel AM LABS Lab 09/10/22 04:00 Ordered Complete Blood Count w/Auto AM LABS Lab 09/09/22 04:00 Ordered Complete Blood Count w/Auto AM LABS Lab 09/10/22 04:00 Ordered Laboratory Results WBC 9.1 10^3/uL (4.0-10.0) 09/08/22 02:54 RBC 4.40 10^6/uL (4.1-5.3) 09/08/22 02:54 Hgb 13.7 g/dL (11.7-16.6) 09/08/22 02:54 Hct 41.8 % (42.0-52.0) L 09/08/22 02:54 MCV 95.0 fl (80-94) H 09/08/22 02:54 MCH 31.1 pg (28.0-34.0) 09/08/22 02:54 MCHC 32.8 g/dL (30.0-36.0) 09/08/22 02:54 RDW 13.3 % (12.1-15.1) 09/08/22 02:54 Plt Count 235 10^3/cmm (130-400) 09/08/22 02:54 MPV 9.9 fL (7.4-10.4) 09/08/22 02:54 Neut % (Auto) 71.9 % 09/08/22 02:54 Lymph % (Auto) 18.4 % 09/08/22 02:54 [place] % (Auto) 7.3 % 09/08/22 02:54 Eos % (Auto) 1.4 % 09/08/22 02:54 Baso % (Auto) 0.2 % 09/08/22 02:54 Neut # (Auto) 6.51 10^3/uL (1.8-7.7) 09/08/22 02:54 Lymph # (Auto) 1.7 10^3/uL (0.8-4.8) 09/08/22 02:54 [place] # (Auto) 0.7 10^3/uL (0.2-0.9) 09/08/22 02:54 Eos # (Auto) 0.1 10^3/uL (0.0-0.8) 09/08/22 02:54 Baso # (Auto) 0.0 10^3/uL (0.0-0.1) 09/08/22 02:54 Nucleated RBC % (auto) 0 % 09/08/22 02:54 Nucleated RBCs # 0.0 /100WBC 09/08/22 02:54 APTT 28.3 SECONDS (23.9-36.7) D 09/07/22 17:39 Sodium 134 mmol/L (136-145) L 09/08/22 02:54 Potassium 4.7 mmol/L (3.5-5.1) 09/08/22 02:54 Chloride 102 mmol/L (98-107) 09/08/22 02:54 Carbon Dioxide 25 mmol/L (22-29) 09/08/22 02:54 Anion Gap 11.7 (5-19) 09/08/22 02:54 BUN 8 mg/dL (8-23) 09/08/22 02:54 Creatinine 0.7 mg/dL (0.7-1.2) 09/08/22 02:54 GFR Calculation 114.3 mL/min (90-130) 09/08/22 02:54 Glucose 99 mg/dL (65-115) 09/08/22 02:54 Calculated Osmolality 276 mOsm/kg (285-295) L 09/08/22 02:54 Calcium 8.7 mg/dL (8.5-10.5) 09/08/22 02:54 Vitals Last Vital Signs Temp 97.8 F 09/07/22 09:34 Pulse 75 09/08/22 05:27 Resp 18 09/08/22 02:20 BP 92/60 09/07/22 16:00 Pulse Ox 93 09/07/22 16:00 O2 Del Method 09/07/22 15:19 Discharge Plan Discharge Patient Disposition: Home Prescriptions: No Action lisinopril 2.5 mg tablet See Rx Instructions .ROUTE .COMPLEX Qty: 30 11RF Dose Instruction: Take 1 tablet by mouth once daily Rx Instructions: Take 1 tablet by mouth once daily metoprolol succinate 25 mg tablet extended release 24 hr See Rx Instructions .ROUTE .COMPLEX Qty: 30 11RF Dose Instruction: Take 1 tablet by mouth once daily Rx Instructions: Take 1 tablet by mouth once daily clopidogrel 75 mg tablet See Rx Instructions .ROUTE .COMPLEX Qty: 30 11RF Dose Instruction: Take 1 tablet by mouth once daily Rx Instructions: Take 1 tablet by mouth once daily albuterol sulfate 90 mcg/actuation HFA aerosol inhaler 2 inh INHALATION Q6H PRN (Reason: shortness of breath or wheezing) 30 Days Qty: 8.5 5RF fluticasone propion-salmeterol [Advair Diskus] 250-50 mcg/dose blister with device 1 inh INHALATION Q12H Qty: 60 5RF Spiriva with HandiHaler 18 mcg capsule, w/inhalation device 1 cap INHALATION DAILY 30 Days Qty: 30 5RF Rx Instructions: puncture 1 cap using device; one dose = 2 inhalations Nitrostat 0.4 mg tablet, sublingual 0.4 mg sublingual Q5M PRN (Reason: Chest Pain) 10 Days Qty: 25 3RF Rx Instructions: x 3 doses as needed aspirin 81 mg tablet,delayed release (DR/EC) 81 mg PO DAILY@0900 30 Days Qty: 30 3RF Discharge Orders: Discharge Order (Routine); Ordered 09/08/22 Ordered By: Dereje Walters Referrals: Rajwinder Palm MD [Physician] - (This appointment. scheduled for November 24, 2022 at time of 2:00 pm .This is a appointment that has been scheduled prior to this procedure. ) Stephany Peña FNP [Nurse Practitioner] - 4-7 days (please go to [facility] Main admissons next Monday or and have lab drawn,for post angiogram ,lab .then will have your next avalible appointment for follow up in : September at time of 10:45 am with Stephany Peña APN ) Diet: Cardiac Activity: Increase activity as tolerated Patient Instructions: Aspirin (By mouth), Clopidogrel (By mouth), Coronary Angioplasty (DC), Heart Healthy Diet (DC), Post Angiogram Home Care Instructions Discharge Date/Time: 09/08/22 09:45 Discharge Attestations Time Spent in Discharge Care*: greater than 30 min Quality Metrics Clinical Quality Measures [ No reported AMI, CVA or VTE this stay] Coding Level of Care Code Acute Chg FW DC note
[2022-09-08] MEDS: clopidogrel 75 mg Tablet PO (08:45)
[2022-09-08] MEDS: aspirin 81 mg EC Tablet PO (08:45)
--- NOTE | 2022-09-08 09:59 | PC.NURSE ---
Discharge instructions given to patient, no prescriptions, IVs removed. Patient has verbal understanding. No further questions.
--- NOTE | 2022-09-08 18:24 | P.HP_ITS ---
Providers/Chief Complaint Admitting Physician: Dereje Walters MD Primary Care Provider: Siri Bajwa MD Chief Complaint: Chest pain History of Present Illness Jesus Polk is a 61 year old male with past medical history of coronary artery disease status post PCI of SVG to LAD 2 days back. He was discharged earlier today. He came back with 1 significant episode of chest pain along with diaphoresis. EKG does not show ST elevation. His troponin was 284 and is trending down to 227 at 6 hours. He is chest pain-free now. Review of Systems Const: Reports: diaphoresis; Denies: fever(s) or chills Eyes: Denies: change in vision ENMT: Denies: throat pain Card: Denies: palpitations Resp: Reports: dyspnea and other (No shortness of breath now.); Denies: non-productive cough or wheezing GI: Reports: nausea; Denies: abdominal pain or vomiting : Denies: flank pain Musc: Denies: neck pain or back pain Skin/Breast: Denies: rash or pruritus Neuro: Denies: headache(s) or numbness in extremities Psych: Denies: anxiety Jerry/Lymph: Denies: enlarged lymph nodes Medications/Allergies Home Medications Medication Instructions Recorded Confirmed Last Taken Type aspirin 81 mg tablet,delayed 81 mg PO DAILY@0900 30 days #30 12/04/20 09/09/22 09/08/22 Rx release tabs albuterol sulfate 90 mcg/actuation 2 inh inhalation Q6H PRN shortness 06/17/22 09/09/22 09/08/22 Rx aerosol inhaler of breath or wheezing 30 days #8.5 grams clopidogrel 75 mg tablet See Rx Instructions .Route 06/17/22 09/09/22 09/08/22 Rx .COMPLEX #30 tabs fluticasone 250 mcg-salmeterol 50 1 inh inhalation Q12H #60 ea 06/17/22 09/09/22 09/08/22 Rx mcg/dose blistr powdr for inhalation (Advair Diskus) lisinopril 2.5 mg tablet See Rx Instructions .Route 06/17/22 09/09/22 09/08/22 Rx .COMPLEX #30 tabs metoprolol succinate 25 mg See Rx Instructions .Route 06/17/22 09/09/22 09/08/22 Rx tablet,extended release 24 hr .COMPLEX #30 tabs nitroglycerin 0.4 mg sublingual 0.4 mg sublingual Q5M PRN Chest 06/17/22 09/09/22 09/08/22 Rx tablet (Nitrostat) Pain 10 days #25 tabs tiotropium bromide 18 mcg capsule 1 cap inhalation DAILY 30 days #30 06/17/22 09/09/22 09/08/22 Rx with inhalation device (Spiriva inhalations with HandiHaler) Allergies Allergy/AdvReac Type Severity Reaction Status Date / Time Qiicbkm-IHP-DyH Reductase Allergy ADR-Muscle Verified 09/07/22 09:10 Inhibitor Pain atorvastatin [From Lipitor] AdvReac Severe leg pain Verified 09/07/22 09:10 PFSH Acute PFSH: Medical History Abuse of smoked substance 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 Started having heart problems in the 30s. Lung disease Stroke Family/Other CAD (coronary artery disease) Many of his uncles and aunts on the paternal side had heart disease/heart attack in their 30s and 50s. His sister and brother both had coronary disease and coronary intervention in their 50s. Bleeding disorder Cancer Lung disease Stroke Grandmother Cancer Diabetes Mother Lung disease Stroke Grandfather Stroke Denies family history of Clotting disorder Dementia Chronic kidney disease (CKD) Suicide Anesthesia complication Social History Smoking and tobacco status: current every day smoker (< 1PPD) cigarettes Packs smoked per day: 0.5 Years cigarettes smoked: 40 [ Other cigarette details: Currently he smokes less than half pack a day especially over the last 1 year.] Second hand smoke exposure: Yes Alcohol intake: never Caregiver/support person: Yes Lives independently: Yes Marital status: Current occupational status: disabled History of recent travel: No Current gender identity: Male Special ryan needs: No Agree to transfusion: Yes Vitals/I&O/Wt Last Vital Signs Temp 97.8 F 09/07/22 09:34 Pulse 78 09/08/22 09:00 Resp 22 H 09/08/22 09:00 BP 101/73 09/08/22 09:30 Pulse Ox 91 09/08/22 09:00 O2 Del Method 09/08/22 09:30 09/08/22 09/08/22 09/08/22 06:59 14:59 22:59 Intake Total 19.95 / 409.96 240 / 240 Output Total 500 / 500 Balance -480.05 / -90.04 240 / 240 Weight last 48 hrs Weight 150 lb Physical Exam Narrative: GENERAL: Patient is alert, awake and oriented x3. [] NECK: No jugular vein distension. [] HEENT: No cyanosis. No icterus. No pallor. [] HEART: Regular S1 and S2. No murmur, rub or gallop. [] LUNGS: Clear to auscultate bilaterally. [] ABDOMEN: Soft, nontender and nondistended. Positive bowel sounds. No guarding, rebound or tenderness. [] CENTRAL NERVOUS SYSTEM: Grossly nonfocal. [] EXTREMITIES: Lower extremities with no edema bilaterally. Pulses palpable in the lower extremities, both dorsalis pedis and posterior tibial. [] Data 09/08/22 02:54 09/08/22 02:54 A&P Assessment and plan (1) Angina pectoris, unstable: (2) Coronary artery disease: Qualifiers: Associated angina: with unstable angina Coronary Disease-Associated Artery/Lesion type: bypass graft, autologous artery Qualified Code(s): I25.720 - Atherosclerosis of autologous artery coronary artery bypass graft(s) with unstable angina pectoris (3) Hx of CABG: (4) Dyslipidemia (high LDL; low HDL): Plan Patient had no reflow during her recent PCI of SVG to LAD. It resolved at the end of the procedure with Cardene administration. She was discharged earlier today. He came back with severe substernal chest pain episode not resolved with sublingual nitro. Chest pain resolved with administration of fentanyl. Continue aspirin and Plavix. Continue heparin drip. Trend troponins We will obtain echocardiogram. If he stays chest pain-free and troponins continue to drop, will medically manage him. Attestations Medical Necessity Statement*: Care expected to cross 2 midnights. Coding Level of Care Code Acute Sound Equipment Mechanic for Aden Fwd Diagnoses Angina pectoris, unstable I20.0 Coronary artery disease I25.720 Associated angina: with unstable angina Coronary Disease-Associated Artery/Lesion type: bypass graft, autologous artery Hx of CABG Z95.1 Dyslipidemia (high LDL; low HDL) E78.5
== END 2022-09-08 09:45 | disposition home or self-care (01) ==
LOC: CCL 09:01 → ICU 12:30
PROVIDERS: PCP Family Medicine; Visit Provider Internal Medicine
DX: I25.110 Atherosclerotic heart disease of native coronary artery with unstable angina pectoris (principal); Z79.82 Long term (current) use of aspirin; I10 Essential (primary) hypertension; I25.720 Atherosclerosis of autologous artery coronary artery bypass graft(s) with unstable angina pectoris; J44.9 Chronic obstructive pulmonary disease, unspecified; E78.5 Hyperlipidemia, unspecified; I25.2 Old myocardial infarction; Z95.1 Presence of aortocoronary bypass graft; Z95.5 Presence of coronary angioplasty implant and graft; F17.210 Nicotine dependence, cigarettes, uncomplicated
CPT/HCPCS: 36415; 80048; 85025; 85347; 85730; 93005; 96365; 99152; 99153; C1769; C1874; C1887; C1894; C9600; J1644; J2250; J2270; J2405; J3010; J3490; J7030; J7040; Q0163; Q9967

== ENCOUNTER 2022-09-08 16:36 | Observation (INO) | payer MEDICARE, MEDICAID, SELFPAY ==
[2022-09-08 16:45] VITALS: BP 111/68; PULSE 75; RESP 18; O2SAT 98; BMI 31.8
--- NOTE | 2022-09-08 16:47 | ECG_ITS ---
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 Measurements Intervals [place] Rate: 68 P: 66 MA: 191 QRS: 11 QRSD: 82 T: -25 QT: 377 QTc: 403 Interpretive Statements SINUS RHYTHM POSSIBLE LEFT ATRIAL ENLARGEMENT [-0.1mV P-WAVE IN V1/V2] LOW QRS VOLTAGE IN PRECORDIAL LEADS [QRS DEFLECTION < 1.0 mV IN CHEST LEADS] POSSIBLE RIGHT VENTRICULAR CONDUCTION DELAY [RSR (QR) IN V1/V2] POSSIBLE ANTERIOR MYOCARDIAL INFARCTION , OF INDETERMINATE AGE [30 ms Q WAVE IN V3/V4, OR R < 0.2 mV IN V4] Compared to ECG 09/07/2022 13:49:08 Myocardial infarct finding now present Sinus bradycardia no longer present Electronically Signed On 09-09-2022 13:48:13 TIP SCOURER by Dereje Walters M.D. [id number]
--- NOTE | 2022-09-08 16:53 | XRR_ITS ---
PROCEDURE INFORMATION: Exam: XR Chest Exam date and time: 09/08/2022 5:01 PM Age: 61 years old Clinical indication: Chest wall pain; Additional info: Chest pain TECHNIQUE: Imaging protocol: Radiologic exam of the chest. Views: 1 view. COMPARISON: CR XR chest 1V portable [id number] 12/02/2020 5:50 PM FINDINGS: Lungs: Unremarkable. No consolidation. Pleural spaces: Unremarkable. No pleural effusion. No pneumothorax. Heart/Mediastinum: Cardiac silhouette is mildly enlarged on this portable chest. Bones/joints: Prior median sternotomy otherwise osseous structures are unremarkable.. XR/XR chest 1V portable [id number] IMPRESSION: Mild cardiomegaly otherwise negative chest.
[2022-09-08 17:25] LABS: Basophils % 0.3 %; Eosinophils # 0.2 10^3/uL (0.0-0.8); Eosinophils % 1.7 %; Hematocrit 40.2 % (42.0-52.0); Hemoglobin 13.3 g/dL (11.7-16.6); Lymphocytes # 1.2 10^3/uL (0.8-4.8); Lymphocytes % 13.6 %; Mean Corpuscular HGB Conc 33.1 g/dL (30.0-36.0); Mean Corpuscular Hemoglobin 31.2 pg (28.0-34.0); Mean Corpuscular Volume 94.4 fl (80-94); Mean Platelet Volume 9.5 fL (7.4-10.4); Monocytes # 0.6 10^3/uL (0.2-0.9); Monocytes % 6.3 %; Neutrophils # 6.82 10^3/uL (1.8-7.7); Neutrophils % 77.3 %; Nucleated Red Blood Cells % 0 %; Platelet Count 217 10^3/cmm (130-400); Red Blood Count 4.26 10^6/uL (4.1-5.3); Red Cell Distribution Width 13.4 % (12.1-15.1); White Blood Count 8.8 10^3/uL (4.0-10.0)
--- NOTE | 2022-09-08 17:27 | ED_ITS ---
HPI - Chest Pain General: Chief Complaint: Chest Pain Stated Complaint: cp Time Seen by Provider: 09/08/22 16:39 Source: patient Mode of arrival: EMS Limitations: no limitations History of Present Illness: See nursing assessment. Patient with complaints of chest pain that started around 3 PM today after being discharged from the hospital earlier today. Patient states chest pain was in the substernal left chest radiating to his back. He did have mild shortness of breath associated with it. He also had nausea and diaphoresis associated with the pain. EMS was called and brought the patient to the hospital. In route to the hospital, EMS gave nitroglycerin x1 followed by fentanyl. He states the fentanyl resolved his pain. Patient states he took 3 nitroglycerin at home prior to calling EMS. Patient already had his Plavix and aspirin this morning. Patient also has metoprolol and lisinopril this afternoon. Patient underwent stent to saphenous vein graft yesterday. It was noted in the procedure note this was a high risk procedure. Cardiology stated there was no flow through the artery for approximately 4 minutes due to artery not perfusing well. Patient had coronary bypass grafting in 2005 originally. Patient is presently pain-free. Patient states he is allergic to statins. Associated symptoms: Reports diaphoresis, dyspnea and nausea; Deny abdominal pain, fever(s), palpitations or vomiting Review of Systems Const: Reports: diaphoresis; Denies: fever(s) or chills Eyes: Denies: change in vision ENMT: Denies: throat pain Card: Denies: palpitations Resp: Reports: dyspnea and other (No shortness of breath now.); Denies: non-productive cough or wheezing GI: Reports: nausea; Denies: abdominal pain or vomiting : Denies: flank pain Musc: Denies: neck pain or back pain Skin/Breast: Denies: rash or pruritus Neuro: Denies: headache(s) or numbness in extremities Psych: Denies: anxiety Jerry/Lymph: Denies: enlarged lymph nodes PFSH ED PFSH: Medical History Abuse of smoked substance 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 Started having heart problems in the 30s. Lung disease Stroke Family/Other CAD (coronary artery disease) Many of his uncles and aunts on the paternal side had heart disease/heart attack in their 30s and 50s. His sister and brother both had coronary disease and coronary intervention in their 50s. Bleeding disorder Cancer Lung disease Stroke Grandmother Cancer Diabetes Mother Lung disease Stroke Grandfather Stroke Denies family history of Clotting disorder Dementia Chronic kidney disease (CKD) Suicide Anesthesia complication Social History Smoking and tobacco status: current every day smoker (< 1PPD) cigarettes Packs smoked per day: 0.5 Years cigarettes smoked: 40 [ Other cigarette details: Currently he smokes less than half pack a day especially over the last 1 year.] Second hand smoke exposure: Yes Alcohol intake: never Caregiver/support person: Yes Lives independently: Yes Marital status: Current occupational status: disabled History of recent travel: No Current gender identity: Male Special ryan needs: No Agree to transfusion: Yes Supplemental [facility] Information: Stent to saphenous vein graft yesterday Physical Exam Const: COMMON NORMALS: no acute distress, patient oriented x3, no limitations and well nourished GENERAL APPEARANCE: cooperative HENMT: COMMON NORMALS: normocephalic and atraumatic HEAD & SCALP: normocephalic and atraumatic FACE & SINUS: normal facial exam Eye: COMMON NORMALS: EOMs intact bilaterally Neck/C-Spine: COMMON NORMALS: full ROM, no lymphadenopathy, supple and no meningeal signs GENERAL: Yes normal visual inspection Lymph: LYMPHATIC: no lymphadenopathy noted Chest: COMMONS NORMALS: normal inspection of the chest and normal palpation of entire chest wall CHEST: No Ecchymosis present and No rash Resp: COMMON NORMALS: normal respiratory effort, No retractions and clear to auscultation bilaterally EFFORT & INSPECTION: No respiratory distress AUSCULTATION: clear to auscultation bilaterally Cardio: COMMON NORMALS: regular rate, regular rhythm and Peripheral pulses 2+ throughout JUGULAR VENOUS DISTENTION: no JVD RATE: regular rate RHYTHM: regular rhythm PERIPHERAL PULSES: Peripheral pulses 2+ throughout GI: COMMON NORMALS: Normal to inspection, nondistended, normoactive bowel sounds present and non-tender : COMMON NORMALS: Yes no CVA tenderness BLADDER/KIDNEY EXAM: Yes no CVA tenderness Back/Pelvis: COMMON NORMALS: no CVA tenderness Extremity: COMMON NORMALS: normal to inspection, full ROM and capillary refill normal Neuro: COMMON NORMALS: patient oriented x3, CN's II-XII intact bilaterally, no focal motor deficits and no sensory deficits noted MENINGEAL SIGNS: Yes no meningeal signs Psych: COMMON NORMALS: mental status grossly normal and Normal thought process present THOUGHT PROCESS: Normal thought process present Skin: COMMON NORMALS: no rashes or lesions noted and no wounds GENERAL SKIN EXAM: no rashes or lesions noted and other (No diaphoresis now.) Course Vital Signs: Vital signs: Vital Signs Pulse Rate 75 09/08/22 16:45 Respiratory Rate 18 09/08/22 16:45 Blood Pressure 111/68 09/08/22 16:45 Pulse Oximetry 98 09/08/22 16:45 Oxygen Delivery Me thod 09/08/22 16:45 Oxygen Flow Rate 2 09/08/22 16:45 MDM - Chest Pain Medical Decision Making Unstable angina versus non-STEMI. Patient will have an elevated troponin due to his procedure just yesterday. I discussed case with his signal intelligence/electronic warfare just after patient arrived. Dr. Walters will observe the patient in the hospital. He asked that I start heparin drip on patient. I placed orders. Lab Data 09/08/22 17:04 09/08/22 17:04 Radiology Impressions Chest X-Ray 09/08/22 16:53 IMPRESSION: Mild cardiomegaly otherwise negative chest. Laboratory Results WBC 8.8 10^3/uL (4.0-10.0) 09/08/22 17:04 RBC 4.26 10^6/uL (4.1-5.3) 09/08/22 17:04 Hgb 13.3 g/dL (11.7-16.6) 09/08/22 17:04 Hct 40.2 % (42.0-52.0) L 09/08/22 17:04 MCV 94.4 fl (80-94) H 09/08/22 17:04 MCH 31.2 pg (28.0-34.0) 09/08/22 17:04 MCHC 33.1 g/dL (30.0-36.0) 09/08/22 17:04 RDW 13.4 % (12.1-15.1) 09/08/22 17:04 Plt Count 217 10^3/cmm (130-400) 09/08/22 17:04 MPV 9.5 fL (7.4-10.4) 09/08/22 17:04 Neut % (Auto) 77.3 % 09/08/22 17:04 Lymph % (Auto) 13.6 % 09/08/22 17:04 Holmes % (Auto) 6.3 % 09/08/22 17:04 Eos % (Auto) 1.7 % 09/08/22 17:04 Baso % (Auto) 0.3 % 09/08/22 17:04 Neut # (Auto) 6.82 10^3/uL (1.8-7.7) 09/08/22 17:04 Lymph # (Auto) 1.2 10^3/uL (0.8-4.8) 09/08/22 17:04 Holmes # (Auto) 0.6 10^3/uL (0.2-0.9) 09/08/22 17:04 Eos # (Auto) 0.2 10^3/uL (0.0-0.8) 09/08/22 17:04 Baso # (Auto) 0.0 10^3/uL (0.0-0.1) 09/08/22 17:04 Nucleated RBC % (auto) 0 % 09/08/22 17:04 Nucleated RBCs # 0.0 /100WBC 09/08/22 17:04 APTT 21.0 SECONDS (23.9-36.7) L 09/08/22 17:04 Troponin T Baseline 284 ng/L (0-15) H* 09/08/22 17:04 Imaging Data CXR: My impression: Cardiomegaly. Evidence of previous sternotomy. No effusions or infiltrates. Radiologist's impression: PROCEDURE INFORMATION: Exam: XR Chest Exam date and time: 09/08/2022 5:01 PM Age: 61 years old Clinical indication: Chest wall pain; Additional info: Chest pain TECHNIQUE: Imaging protocol: Radiologic exam of the chest. Views: 1 view. COMPARISON: CR XR chest 1V portable [id number] 12/02/2020 5:50 PM FINDINGS: ?Lungs: Unremarkable. No consolidation. ?Pleural spaces: Unremarkable. No pleural effusion. No pneumothorax. ?Heart/Mediastinum: Cardiac silhouette is mildly enlarged on this portable chest. ?Bones/joints:? Prior median sternotomy otherwise osseous structures are unremarkable.. XR/XR chest 1V portable [id number] IMPRESSION: Mild cardiomegaly otherwise negative chest. ? Dictated By: Sergio Gonzáles MD Signed By: Sergio Gonzáles MD Signed Date/Time: 09/08/22 1720 EKG Data EKG 1: I personally reviewed and interpreted this EKG as follows: EKG interpretation date: 09/08/22 EKG interpretation time: 16:51 Interpretation: EKG shows normal sinus rhythm with normal axis. Nonspecific ST-T changes in the anterior lateral leads. There are T wave inversions in the lateral leads. Normal WY wave, normal WY interval. Normal QT interval. Discharge Plan Discharge Patient Disposition: Placed in Observation Clinical Impression: Angina pectoris, unstable Coronary artery disease Qualifiers: Coronary Disease-Associated Artery/Lesion type: bypass graft, autologous artery Associated angina: with unstable angina Qualified Code(s): I25.720 - Atherosclerosis of autologous artery coronary artery bypass graft(s) with unstable angina pectoris Coding Level of Care Code ED Automobile Service Writer for Chg Fwd History Comprehensive Exam Comprehensive Medical Decision Making High Complexity
[2022-09-08] MEDS: heparin 5,000 unit/mL INJ 1 mL 4000 UNIT IVP (17:53)
[2022-09-08 17:54] LABS: Troponin(5th) Baseline 284 ng/L (0-15)
[2022-09-08 18:01] LABS: Anion Gap 11.2 (5-19); Blood Urea Nitrogen 9 mg/dL (8-23); Calcium 8.3 mg/dL (8.5-10.5); Carbon Dioxide 27 mmol/L (22-29); Chloride 99 mmol/L (98-107); Glomerular Filtration Rate 168.5 mL/min (90-130); Glucose 103 mg/dL (65-115); NT Pro B Type Natriuretic Pept 534 pg/mL (0-125); Osmolality Calculated 275 mOsm/kg (285-295); Potassium 4.2 mmol/L (3.5-5.1); Sodium 133 mmol/L (136-145)
[2022-09-08] MEDS: heparin drip 25,000 UNIT/500 ML PREMIX 23 UNIT IV (18:03)
[2022-09-08] MEDS: morphine 4 mg/mL SDV 1 mL IVP (18:05)
[2022-09-08] MEDS: ondansetron 2 mg/ML SDV 2 mL 4 MG IVP (18:05)
[2022-09-08 18:15] VITALS: BP 131/81; PULSE 70; PULSE 72; RESP 16; O2SAT 99
--- NOTE | 2022-09-08 18:53 | ECG_ITS ---
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 Measurements Intervals [place] Rate: 63 P: 57 CO: 196 QRS: 9 QRSD: 81 T: -80 QT: 417 QTc: 429 Interpretive Statements SINUS RHYTHM LOW QRS VOLTAGE IN PRECORDIAL LEADS [QRS DEFLECTION < 1.0 mV IN CHEST LEADS] POSSIBLE RIGHT VENTRICULAR CONDUCTION DELAY [RSR (QR) IN V1/V2] ANTERIOR MYOCARDIAL INFARCTION , OF INDETERMINATE AGE [40+ ms Q WAVE AND/OR ST/T ABNORMALITY IN V3/V4] MODERATE T-WAVE ABNORMALITY, CONSIDER LATERAL ISCHEMIA [-0.1+ mV T-WAVE IN I/aVL/V5/V6] MODERATE T-WAVE ABNORMALITY, CONSIDER INFERIOR ISCHEMIA [-0.1+ mV T-WAVE IN II/aVF] Compared to ECG 09/08/2022 16:50:58 T-wave abnormality now present Possible ischemia now present Myocardial infarct finding still present Electronically Signed On 09-09-2022 13:52:11 STATE SUPERINTENDENT OF SCHOOLS by Dereje Walters M.D. [id number]
[2022-09-08 19:17] VITALS: BP 131/81; PULSE 72; RESP 16; O2SAT 99
[2022-09-08 19:27] LABS: Troponin 5 2HR Delta -23.9 ABS# (0-10)
[2022-09-08 19:28] LABS: Troponin 5 2HR 260.1 ng/L (0-15)
[2022-09-08 20:30] VITALS: BP 122/72; PULSE 66; RESP 21; TEMP 36.7; O2SAT 94
[2022-09-08 21:11] VITALS: PULSE 70
[2022-09-08 23:15] LABS: Troponin 5 6HR 227.5 ng/L (0-15)
[2022-09-08 23:38] VITALS: BP 106/66; PULSE 92; RESP 24; O2SAT 91
[2022-09-09] MEDS: temazepam 15 mg Capsule PO (01:05)
[2022-09-09 01:06] LABS: Basophils % 0.4 %; Eosinophils # 0.2 10^3/uL (0.0-0.8); Eosinophils % 2.6 %; Hematocrit 38.5 % (42.0-52.0); Lymphocytes # 2.1 10^3/uL (0.8-4.8); Lymphocytes % 25.9 %; Mean Corpuscular HGB Conc 33.8 g/dL (30.0-36.0); Mean Corpuscular Hemoglobin 31.6 pg (28.0-34.0); Mean Corpuscular Volume 93.4 fl (80-94); Mean Platelet Volume 9.7 fL (7.4-10.4); Monocytes # 0.6 10^3/uL (0.2-0.9); Monocytes % 7.4 %; Neutrophils # 5.07 10^3/uL (1.8-7.7); Neutrophils % 62.8 %; Nucleated Red Blood Cells % 0 %; Platelet Count 200 10^3/cmm (130-400); Red Blood Count 4.12 10^6/uL (4.1-5.3); Red Cell Distribution Width 13.2 % (12.1-15.1); White Blood Count 8.1 10^3/uL (4.0-10.0)
--- NOTE | 2022-09-09 01:09 | PC.NURSE ---
Patient c/o no sleep for past few nights due to being in the hospital. Informed Dr Chowdary and received onetime order for Restoril 15mg PO. RBVO
[2022-09-09 01:56] LABS: Anion Gap 11.2 (5-19); Blood Urea Nitrogen 8 mg/dL (8-23); Carbon Dioxide 25 mmol/L (22-29); Chloride 102 mmol/L (98-107); Glucose 104 mg/dL (65-115); Partial Thromboplastin Time 89.3 SECONDS (23.9-36.7); Potassium 4.2 mmol/L (3.5-5.1)
[2022-09-09 02:12] LABS: Calcium 8.3 mg/dL (8.5-10.5); Glomerular Filtration Rate 168.5 mL/min (90-130); Osmolality Calculated 277 mOsm/kg (285-295); Sodium 134 mmol/L (136-145)
[2022-09-09 03:55] VITALS: PULSE 67; RESP 22; O2SAT 94
[2022-09-09 04:40] VITALS: PULSE 68
[2022-09-09 06:09] VITALS: BP 122/74; PULSE 61; RESP 20; O2SAT 94
[2022-09-09] MEDS: clopidogrel 75 mg Tablet PO (08:06)
[2022-09-09] MEDS: aspirin 81 mg EC Tablet PO (08:06)
[2022-09-09 08:43] VITALS: BP 119/71; PULSE 72; RESP 26; TEMP 36.5; O2SAT 93
--- NOTE | 2022-09-09 08:54 | USCV_ITS ---
Jesus Polk Age: 61 Gender: M : 1960 Exam Date: 09/09/2022 09:21 Ordering Phys: Dereje Walters M.D ([email or web address]) Technologist: ALEXANDRA Exam Location: [facility] [place] Indication: WROSENING ANGINA BP: 119 / 71 HR: 67 Rhythm: Sinus Technical Quality: Adequate MEASUREMENTS (Male / Female) Normal Values 2D ECHO LVOT Diameter 2.0 cm LV Ejection Fraction MOD 2C 32.8 % LV Ejection Fraction 2C AL 33.2 % LA Diameter 3.7 cm LA Width 2.8 cm LA Height 4.0 cm RA Width 2.8 cm RA Height 4.0 cm Aorta at Sinotubular Diameter 2.8 cm IVC Diameter 1.5 cm M-MODE Aortic Annulus Diameter 2.8 cm LA Ao Ratio MM 1.3 MV E Point Septal Separation 0.5 cm DOPPLER AV Peak Velocity 134.0 cm/s LVOT Peak Velocity 81.0 cm/s AV Area Cont Eq vti 2.1 cm squared AV Area Cont Eq pk 1.9 cm squared MV Peak Velocity 98.0 cm/s MV Area PHT 3.3 cm squared Mitral E to A Ratio 0.7 MV E' Velocity 33.5 cm/s Mitral E to MV E' Ratio 7.5 Mitral E to LV E' Lateral Ratio 8.4 Mitral E to LV E' Septal Ratio 6.8 TR Peak Velocity 216.0 cm/s TR Peak Gradient 18.7 mmHg TR Mean Velocity 163.8 cm/s TR Mean Gradient 11.5 mmHg TR Velocity Time Integral 66.9 cm TV Peak E Velocity 53.0 cm/s Right Atrial Pressure 3.0 mmHg Pulmonary Artery Systolic Pressu 21.7 mmHg PV Peak Velocity 108.0 cm/s RV Acceleration Time 0.1 s RV Ejection Time 0.3 s RV AcT/ET 0.3 FINDINGS Left Ventricle Technically limited quality echocardiogram because of poor ultrasonic windows. LV systolic function is moderately reduced with EF of 35 to 40%. Mild global hypokinesis seen. Mild to moderate hypokinesis of anterolateral and anterior wall is seen. Grade 1 diastolic dysfunction Right Ventricle Normal in size and function Right Atrium Normal in size Left Atrium Normal in size Mitral Valve Structurally normal mitral valve. Mild mitral regurgitation. Aortic Valve Grossly normal. No significant stenosis or regurgitation seen Tricuspid Valve Mild tricuspid regurgitation is seen. Pulmonary artery systolic pressure is normal. Pulmonic Valve Not well-visualized Pericardium Normal Aorta Normal in size IVC Appears to be normal CONCLUSIONS Technically limited quality echocardiogram. LV systolic function is moderately reduced with EF of 35 to 40%. Above- mentioned regional wall motion abnormalities Grade 1 diastolic dysfunction Mild mitral regurgitation Mild tricuspid regurgitation Compared to prior echocardiogram from 12/03/2020, LV systolic function has slightly decreased to 35-40% Dereje Walters MD (Electronically Signed) Final Date: 09 September 2022 15:42 S
--- NOTE | 2022-09-09 09:31 | ECG_ITS ---
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 Measurements Intervals [place] Rate: 77 P: 68 LA: 170 QRS: 34 QRSD: 75 T: 19 QT: 361 QTc: 411 Interpretive Statements SINUS RHYTHM POSSIBLE LEFT ATRIAL ENLARGEMENT [-0.1mV P-WAVE IN V1/V2] LOW QRS VOLTAGE IN PRECORDIAL LEADS [QRS DEFLECTION < 1.0 mV IN CHEST LEADS] POSSIBLE RIGHT VENTRICULAR CONDUCTION DELAY [RSR (QR) IN V1/V2] POSSIBLE ANTERIOR MYOCARDIAL INFARCTION , PROBABLY OLD [30 ms Q WAVE IN V3/V4, OR R < 0.2 mV IN V4] Compared to ECG 09/08/2022 21:56:33 T-wave abnormality no longer present Possible ischemia no longer present Myocardial infarct finding still present Electronically Signed On 09-09-2022 13:51:23 STAFF TOXICOLOGIST by Dereje Walters M.D. [id number]
--- NOTE | 2022-09-09 10:40 | PM.DCS ---
Discharge Providers Date of Admission: 09/08/22 17:28 Date of Discharge: September 09, 2022 Attending Provider at Admission: Dereje Walters M.D Attending Provider at Discharge: Dereje Walters M.D Primary Care Provider: Siri Bajwa MD Reason for Visit Reason for Visit: Chest pain Brief History: 62-year-old man with past medical history of CAD post prior CABG who underwent high risk intervention of SVG to LAD on 09/07/2022. He developed no reflow during the procedure however with administration of Cardene, flow was restored. He had on and off chest discomfort episodes postintervention without any EKG changes. He was discharged he post intervention yesterday. At home had significant episode of chest pain. He came back to the hospital. Hospital Course Hospital Course In the hospital no EKG changes were seen. Troponins were trended that trended down from 284 at baseline to 227 at 6 hours. Heparin was continued overnight however was discontinued after continuous drop in troponin levels. He is status chest pain-free. An echocardiogram was performed that showed EF of 35 to 40% which is similar to LV gram performed prior to intervention. Patient wanted to go home and was in stable condition. He was discharged home with addition of Imdur. Physical Exam Narrative: GENERAL: Patient is alert, awake and oriented x3. [] NECK: No jugular vein distension. [] HEENT: No cyanosis. No icterus. No pallor. [] HEART: Regular S1 and S2. No murmur, rub or gallop. [] LUNGS: Clear to auscultate bilaterally. [] ABDOMEN: Soft, nontender and nondistended. Positive bowel sounds. No guarding, rebound or tenderness. [] CENTRAL NERVOUS SYSTEM: Grossly nonfocal. [] EXTREMITIES: Lower extremities with no edema bilaterally. Pulses palpable in the lower extremities, both dorsalis pedis and posterior tibial. [] Discharge Data Studies Completed and Pending Completed Studies During Hospitalization Category Date Time Status XR chest 1V portable [id number] Stat Exams 09/08/22 16:53 Completed Pending at discharge Category Date Time Status Platelet Count Q2D Lab 09/10/22 04:00 Ordered Platelet Count Q2D Lab 09/12/22 04:00 Ordered CV. echo complete* [id number] Routine Ultrasound 09/09/22 08:54 Taken Radiology Impressions Chest X-Ray 09/08/22 16:53 IMPRESSION: Mild cardiomegaly otherwise negative chest. Laboratory Results WBC 8.1 10^3/uL (4.0-10.0) 09/09/22 00:52 RBC 4.12 10^6/uL (4.1-5.3) 09/09/22 00:52 Hgb 13.0 g/dL (11.7-16.6) 09/09/22 00:52 Hct 38.5 % (42.0-52.0) L 09/09/22 00:52 MCV 93.4 fl (80-94) 09/09/22 00:52 MCH 31.6 pg (28.0-34.0) 09/09/22 00:52 MCHC 33.8 g/dL (30.0-36.0) 09/09/22 00:52 RDW 13.2 % (12.1-15.1) 09/09/22 00:52 Plt Count 200 10^3/cmm (130-400) 09/09/22 00:52 MPV 9.7 fL (7.4-10.4) 09/09/22 00:52 Neut % (Auto) 62.8 % 09/09/22 00:52 Lymph % (Auto) 25.9 % 09/09/22 00:52 [place] % (Auto) 7.4 % 09/09/22 00:52 Eos % (Auto) 2.6 % 09/09/22 00:52 Baso % (Auto) 0.4 % 09/09/22 00:52 Neut # (Auto) 5.07 10^3/uL (1.8-7.7) 09/09/22 00:52 Lymph # (Auto) 2.1 10^3/uL (0.8-4.8) 09/09/22 00:52 [place] # (Auto) 0.6 10^3/uL (0.2-0.9) 09/09/22 00:52 Eos # (Auto) 0.2 10^3/uL (0.0-0.8) 09/09/22 00:52 Baso # (Auto) 0.0 10^3/uL (0.0-0.1) 09/09/22 00:52 Nucleated RBC % (auto) 0 % 09/09/22 00:52 Nucleated RBCs # 0.0 /100WBC 09/09/22 00:52 APTT 77.0 SECONDS (23.9-36.7) H 09/09/22 08:46 Sodium 134 mmol/L (136-145) L 09/09/22 00:52 Potassium 4.2 mmol/L (3.5-5.1) 09/09/22 00:52 Chloride 102 mmol/L (98-107) 09/09/22 00:52 Carbon Dioxide 25 mmol/L (22-29) 09/09/22 00:52 Anion Gap 11.2 (5-19) 09/09/22 00:52 BUN 8 mg/dL (8-23) 09/09/22 00:52 Creatinine 0.5 mg/dL (0.7-1.2) L 09/09/22 00:52 GFR Calculation 168.5 mL/min (90-130) H 09/09/22 00:52 Glucose 104 mg/dL (65-115) 09/09/22 00:52 Calculated Osmolality 277 mOsm/kg (285-295) L 09/09/22 00:52 Calcium 8.3 mg/dL (8.5-10.5) L 09/09/22 00:52 Troponin T Baseline 284 ng/L (0-15) H* 09/08/22 17:04 Troponin T 120 Minute 260.1 ng/L (0-15) H 09/08/22 18:50 Delta Troponin T -23.9 ABS# (0-10) L 09/08/22 18:50 Troponin T Hi Sens 6Hr 227.5 ng/L (0-15) H 09/08/22 21:40 Troponin T Hi Sens 6Hr Delta -56.5 ng/L (0-12) L 09/08/22 21:40 NT-Pro-B Natriuret Pep 534 pg/mL (0-125) H 09/08/22 17:04 Vitals Last Vital Signs Temp 97.7 F 09/09/22 08:43 Pulse 72 09/09/22 08:43 Resp 26 H 09/09/22 08:43 BP 119/71 09/09/22 08:43 Pulse Ox 93 09/09/22 08:43 O2 Del Method 09/09/22 06:09 O2 Flow Rate 1 09/08/22 18:15 Discharge Plan Discharge Patient Disposition: Home Condition: Stable Prescriptions: New isosorbide mononitrate 30 mg tablet extended release 24 hr 30 mg PO DAILY Qty: 60 1RF Continued lisinopril 2.5 mg tablet See Rx Instructions .ROUTE .COMPLEX Qty: 30 11RF Dose Instruction: Take 1 tablet by mouth once daily Rx Instructions: Take 1 tablet by mouth once daily metoprolol succinate 25 mg tablet extended release 24 hr See Rx Instructions .ROUTE .COMPLEX Qty: 30 11RF Dose Instruction: Take 1 tablet by mouth once daily Rx Instructions: Take 1 tablet by mouth once daily clopidogrel 75 mg tablet See Rx Instructions .ROUTE .COMPLEX Qty: 30 11RF Dose Instruction: Take 1 tablet by mouth once daily Rx Instructions: Take 1 tablet by mouth once daily albuterol sulfate 90 mcg/actuation HFA aerosol inhaler 2 inh INHALATION Q6H PRN (Reason: shortness of breath or wheezing) 30 Days Qty: 8.5 5RF fluticasone propion-salmeterol [Advair Diskus] 250-50 mcg/dose blister with device 1 inh INHALATION Q12H Qty: 60 5RF Spiriva with HandiHaler 18 mcg capsule, w/inhalation device 1 cap INHALATION DAILY 30 Days Qty: 30 5RF Rx Instructions: puncture 1 cap using device; one dose = 2 inhalations Nitrostat 0.4 mg tablet, sublingual 0.4 mg sublingual Q5M PRN (Reason: Chest Pain) 10 Days Qty: 25 3RF Rx Instructions: x 3 doses as needed aspirin 81 mg tablet,delayed release (DR/EC) 81 mg PO DAILY@0900 30 Days Qty: 30 3RF Discharge Orders: Discharge Order (Routine); Ordered 09/09/22 Ordered By: Dereje Walters Referrals: Siri Bajwa MD [Primary Care Provider] - Discharge Diet: Cardiac Discharge Activity: Increase activity as tolerated Patient Instructions: Angina (ED), Low-Sodium Diet (DC), Angio-Seal (DC), Opioid Safety Discharge Attestations Time Spent in Discharge Care*: greater than 30 min Quality Metrics Clinical Quality Measures [ No reported AMI, CVA or VTE this stay] Coding Level of Care Code Acute Chg FW DC note
== END 2022-09-09 10:50 | disposition home or self-care (01) ==
LOC: ER 17:28 → CSU 18:30
PROVIDERS: Admitting Provider Internal Medicine; Emergency Provider Family Medicine; PCP Family Medicine; Visit Provider Internal Medicine
DX: R07.89 Other chest pain (principal); R06.02 Shortness of breath; I25.720 Atherosclerosis of autologous artery coronary artery bypass graft(s) with unstable angina pectoris; I10 Essential (primary) hypertension; J44.9 Chronic obstructive pulmonary disease, unspecified; E78.5 Hyperlipidemia, unspecified; I25.2 Old myocardial infarction; F17.210 Nicotine dependence, cigarettes, uncomplicated
CPT/HCPCS: 36415; 71045; 80048; 83880; 84484; 85025; 85730; 93005; 93306; 96365; 96375; 99291; 99292; G0378; J1644; J2270; J2405

== ENCOUNTER → 2022-09-29 10:57 | Outpatient (BNVA) | payer MEDICARE, SELFPAY | PROVIDERS: PCP Family Medicine; Visit Provider Nurse Practitioner Family | DX: I25.810 Atherosclerosis of coronary artery bypass graft(s) without angina pectoris (principal); Z95.1 Presence of aortocoronary bypass graft; F17.210 Nicotine dependence, cigarettes, uncomplicated; I10 Essential (primary) hypertension; I25.2 Old myocardial infarction | CPT/HCPCS: 99213 ==

== ENCOUNTER → 2023-02-15 09:02 | Outpatient (BNVA) | payer MEDICARE, SELFPAY | PROVIDERS: PCP Family Medicine; Visit Provider Nurse Practitioner Family | DX: I10 Essential (primary) hypertension (principal) | CPT/HCPCS: 80053; 80061; 83880; 84443; 85025 ==

== ENCOUNTER → 2023-02-27 10:01 | Outpatient (BNVA) | payer MEDICARE, SELFPAY | PROVIDERS: PCP Nurse Practitioner Family; Visit Provider Nurse Practitioner Family | DX: I25.810 Atherosclerosis of coronary artery bypass graft(s) without angina pectoris (principal); I11.0 Hypertensive heart disease with heart failure; I50.43 Acute on chronic combined systolic (congestive) and diastolic (congestive) heart failure; F17.210 Nicotine dependence, cigarettes, uncomplicated; I25.2 Old myocardial infarction; E78.5 Hyperlipidemia, unspecified | CPT/HCPCS: 36415; 80048; 83880; 99214 ==

== ENCOUNTER → 2023-03-09 09:01 | Outpatient (BNVA) | payer MEDICARE, SELFPAY | PROVIDERS: PCP Nurse Practitioner Family; Visit Provider Nurse Practitioner Family | DX: I50.43 Acute on chronic combined systolic (congestive) and diastolic (congestive) heart failure (principal) | CPT/HCPCS: 80048 ==

== ENCOUNTER → 2023-03-29 09:42 | Outpatient (BNVA) | payer MEDICARE, SELFPAY | PROVIDERS: PCP Nurse Practitioner Family; Visit Provider Nurse Practitioner Family | DX: R60.9 Edema, unspecified (principal); I50.43 Acute on chronic combined systolic (congestive) and diastolic (congestive) heart failure | CPT/HCPCS: 80048 ==

== ENCOUNTER → 2023-06-07 13:21 | Outpatient (BNVA) | payer MEDICARE, SELFPAY | PROVIDERS: PCP Nurse Practitioner Family; Visit Provider Nurse Practitioner Family | DX: R05.9 Cough, unspecified (principal); J44.1 Chronic obstructive pulmonary disease with (acute) exacerbation | CPT/HCPCS: 87400; 87426 ==

== ENCOUNTER → 2023-12-07 09:45 | Outpatient (BNVA) | payer MEDICARE, SELFPAY | PROVIDERS: PCP Nurse Practitioner Family; Visit Provider Nurse Practitioner Family | DX: I10 Essential (primary) hypertension (principal); Z12.5 Encounter for screening for malignant neoplasm of prostate | CPT/HCPCS: 80053; 80061; 83880; 84443; 85025; G0103 ==

== ENCOUNTER → 2024-01-04 13:46 | Outpatient (BNVA) | payer MEDICARE, SELFPAY | PROVIDERS: PCP Nurse Practitioner Family; Visit Provider Nurse Practitioner Family | DX: N40.0 Benign prostatic hyperplasia without lower urinary tract symptoms (principal); I10 Essential (primary) hypertension | CPT/HCPCS: 80048; 83880 ==

== ENCOUNTER → 2024-04-01 17:12 | Outpatient (BNVA) | payer MEDICARE, SELFPAY | PROVIDERS: PCP Nurse Practitioner Family; Visit Provider Nurse Practitioner Family | DX: I10 Essential (primary) hypertension (principal); N40.0 Benign prostatic hyperplasia without lower urinary tract symptoms; E78.5 Hyperlipidemia, unspecified; J18.9 Pneumonia, unspecified organism; R30.0 Dysuria | CPT/HCPCS: 81000 ==

== ENCOUNTER → 2024-04-03 09:00 | Outpatient (BNVA) | payer MEDICARE, SELFPAY | PROVIDERS: PCP Nurse Practitioner Family; Visit Provider Nurse Practitioner Family | DX: R07.9 Chest pain, unspecified (principal); I10 Essential (primary) hypertension | CPT/HCPCS: 80053; 80061; 85025 ==

== ENCOUNTER → 2024-04-09 10:09 | Outpatient (BNVA) | payer MEDICARE, SELFPAY | PROVIDERS: PCP Nurse Practitioner Family; Visit Provider Nurse Practitioner Family | DX: I25.118 Atherosclerotic heart disease of native coronary artery with other forms of angina pectoris (principal); Z95.1 Presence of aortocoronary bypass graft; I10 Essential (primary) hypertension; I25.2 Old myocardial infarction; Z87.891 Personal history of nicotine dependence | CPT/HCPCS: 36415; 80048; 83880; 99214 ==

== ENCOUNTER 2024-04-16 06:46 | Outpatient (CLI) | payer MEDICARE, MEDICAID, SELFPAY ==
--- NOTE | 2024-04-16 07:00 | USCV_ITS ---
Jesus Polk Age: 63 Gender: M : 1960 Exam Date: 04/16/2024 06:52 Ordering Phys: Stephany Peña Technologist: Exam [place] [facility] [place]: hx cad stents BP: 134 / 75 HR: 64 Rhythm: Sinus Technical Quality: Adequate MEASUREMENTS (Male / Female) Normal Values 2D ECHO LV Diastolic Diameter PLAX 3.8 cm 4.2 - 5.9 / 3.9 - 5.3 cm IVS Diastolic Thickness 1.0 cm 0.6 - 1.0 / 0.6 - 0.9 cm IVS Systolic Thickness 1.7 cm LVPW Diastolic Thickness 1.3 cm 0.6 - 1.0 / 0.6 - 0.9 cm LVPW Systolic Thickness 1.7 cm LVOT Diameter 2.0 cm LV Ejection Fraction 2D Teich 36.9 % LV Ejection Fraction MOD 4C 44.2 % LV Ejection Fraction MOD 2C 17.9 % LV Ejection Fraction 2C AL 17.5 % LA Diameter 3.5 cm RA Systolic Volume 4C AL 29.4 ml RA Systolic Volume 4C MOD 28.4 ml Aorta at Sinotubular Diameter 2.4 cm IVC Diameter 1.9 cm M-MODE LA Ao Ratio MM 1.2 AV Cusp Separation MM 2.2 cm DOPPLER AV Peak Velocity 139.0 cm/s LVOT Peak Velocity 79.0 cm/s AV Area Cont Eq vti 1.9 cm squared AV Area Cont Eq pk 1.8 cm squared MV Peak Velocity 95.0 cm/s MV Area PHT 4.3 cm squared Mitral E to A Ratio 0.8 TV Peak Velocity 173.0 cm/s TR Peak Velocity 187.0 cm/s TR Peak Gradient 14.0 mmHg TV Peak E Velocity 85.0 cm/s PV Peak Velocity 107.0 cm/s FINDINGS Left Ventricle Left ventricle is normal in size. LV systolic function is severely reduced with EF of 20-25%. Severe global hypokinesis. Echogenic structure in apical wall consistent with possible thrombus is seen. Grade 1 diastolic dysfunction. Right Ventricle Normal in size and function Right Atrium Normal in size Left Atrium Normal in size Mitral Valve Structurally normal mitral valve. Trace mitral regurgitation. Aortic Valve Structurally normal aortic valve. No significant stenosis or regurgitation. Tricuspid Valve Insufficient TR jet to calculate RVSP Pulmonic Valve Not well visualized Pericardium Normal Aorta Normal in size IVC Appears to be normal CONCLUSIONS LV systolic function is severely reduced with EF of 20 to 25% Echogenic structure in apical wall consistent with possible thrombus is seen. Grade 1 diastolic dysfunction. Trace mitral regurgitation Compared to prior echocardiogram from 2021, LV systolic function has decreased and is significantly reduced and has possible apical thrombus. Dereje Walters MD (Electronically Signed) Final Date: 16 April 2024 09:59 S
== END 2024-04-16 06:47 | disposition home or self-care (01) ==
LOC: RAD 06:46
PROVIDERS: PCP Nurse Practitioner Family; Visit Provider Nurse Practitioner Family
DX: I25.118 Atherosclerotic heart disease of native coronary artery with other forms of angina pectoris (principal); Z95.1 Presence of aortocoronary bypass graft; R07.9 Chest pain, unspecified; I50.43 Acute on chronic combined systolic (congestive) and diastolic (congestive) heart failure
CPT/HCPCS: 93306

== ENCOUNTER 2024-04-23 07:37 | Outpatient (CLI) | payer MEDICARE, MEDICAID, SELFPAY ==
--- NOTE | 2024-04-23 | ECG_ITS ---
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
[2024-04-23 07:43] VITALS: BMI 28.5
--- NOTE | 2024-04-23 07:49 | NMCV_ITS ---
NM mukul perf SPECT r/s* [id number] Jesus Polk Age: 63 Gender: M : 1960 Exam Date: 04/23/2024 08:33 Ordering Phys: Stephany Peña Technologist: HODA Wheat Exam Location: [facility] Indications: SOB, COPD STRESS TEST Please see separate stress test report in [facility] for full findings IMAGE PROTOCOL Rest/Stress 1 Lexiscan Day Radiopharmaceutical Dose (mCi) Administration Site Administered by Rest: Tc-99m 10.9 IV HODA Wheat Sestamibi Stress:Tc-99m 32.8 IV HODA Wheat Sestamibi Rest: 23-Apr-2024 60 Discovery 630 Stress: 23-Apr-2024 30 Discovery 630 0.4mg Lexiscan. Supine position only as patient was unable to lay prone. SPECT RESULTS Technical Quality: Good Raw Data Analysis: Subdiaphragmatic activity Image Corrections: No attenuation or motion correction applied Summed Stress Score: 28 Summed Rest Score: 19 Summed Difference Score: 10 PERFUSION FINDINGS Large areas of partially reversible perfusion defects noted in the apical, apical anterior, apical septal, lateral and inferior arevalo. This represents large areas of prior infarcts in distribution of all 3 coronary arteries with some reversibility. FUNCTIONAL RESULTS (calculated via Gated SPECT) Stress Image LV EF (%): 30 Stress EDV (mL):183 TID: 1.25 Stress ESV (mL):129 FUNCTIONAL FINDINGS: LV systolic function is moderate to severely reduced. TID ratio is 1.25. May represent multivessel CAD. IMPRESSIONS 1. Abnormal myocardial perfusion imaging with large areas of prior infarct in the distribution of all 3 coronary arteries with some reversibility seen in these territories. 2. LV systolic function is moderately to severely reduced with EF of 30%. 3. TID ratio is 1.25. May represent multivessel CAD. Dereje Walters MD (Electronically Signed) Final Date: 29 April 2024 13:23 S
[2024-04-23] MEDS: regadenoson 0.4 Mg/5 ml Syringe IVP (09:20)
[2024-04-23 09:27] VITALS: BP 109/66; PULSE 81
== END 2024-04-23 07:38 | disposition home or self-care (01) ==
LOC: CDL 07:39
PROVIDERS: PCP Nurse Practitioner Family; Visit Provider Nurse Practitioner Family
DX: Z95.1 Presence of aortocoronary bypass graft (principal); I25.810 Atherosclerosis of coronary artery bypass graft(s) without angina pectoris; I50.43 Acute on chronic combined systolic (congestive) and diastolic (congestive) heart failure; I25.118 Atherosclerotic heart disease of native coronary artery with other forms of angina pectoris
CPT/HCPCS: 36415; 78452; 93017; 96374; A9500; J2785

== ENCOUNTER 2024-05-03 11:05 | Observation (INO) | payer MEDICARE, MEDICAID, SELFPAY ==
[2024-05-03] VITALS (49 sets, daily range): BP systolic 87–122; BP diastolic 47–82; PULSE 60–693; RESP 14–31; TEMP 36.4–36.9; O2SAT 92–98; BMI 28.5
--- NOTE | 2024-05-03 07:32 | XACV_ITS ---
Exam Room: 2 Ht: 160 cm Wt: 73 kg BSA: 1.82 m2 Gender: Male : 1960 Any Known Allergies: Other Exam Priority: Routine Procedure(s): Procedure Description: Diagnostic procedure Procedure Description: Venous Graft Catheterization Procedure Description: Coronary Angiography Diagnostic Cath Status: Elective Diagnostic Findings * INDICATION: Worsening angina/abnormal stress test/ LV dysfunction. * Left Main is patent. Has diffuse disease. * Left Anterior Descending is totally occluded in the proximal segment. * Circumflex has chronic total occlusion of proximal to mid segment. * Proximal to Mid Right Coronary Artery: chronic total occlusion, PASTOR: 0 flow. * BYPASS GRAFTS: SVG to LAD is Proximally occluded. Has several prior stents. SVG to left circumflex artery is patent however has severe 80 to 90% proximal vessel in-stent restenosis. This vessel provides collateral blood supply to other territories. SVG to RCA is known occluded. Not injected. CUETO not attached to any arteries. . * Coronary angiography shows right dominance. Conclusions 1. Severe multivessel coronary artery disease. Only blood flow to myocardium is through SVG to left circumflex artery. It is supplying collateral blood supply to other territories as well. Proximal segment of this graft, has severe in-stent restenosis.. 2. Patient has prior CABG. Recommendations * Patient is dependent on SVG to left circumflex artery blood supply. It is supplying collateral blood supply to other vessels too. There is severe in-stent restenosis of proximal segment of this graft. Intervention not done as it will be very high risk procedure. Has peripheral artery disease as well. Has LV thrombus with severe LV dysfunction. We will transfer patient to tertiary care facility with advanced heart failure team/ CT surgery team availability as will need heart team discussion regarding best possible options. 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 After detailed discussion, patient has agreed to proceed with transfer process. Pressures Phase:Rest AO : 89 / 69 ( 79 ) @ 9:48:00 AM Clinical Evaluation EBL: 5mL-10mL Procedural Details Pre-Procedure Time Out. Identified patient by full name and date of as verbalized by the patient/guarantor. Does the consent match the physician's order: Yes. Accurate & Complete Informed Consent: Yes. Inpatient/Outpatient History & Physical on Chart: Yes. If H&P is completed, is and addenduem needed: No; If yes, is the addendum complete: N/A. Visualize and Verify Site with Patient/Guarantor: N/A. Relevant Radiology Images available: Yes. Pre-op teaching completed and patient verbalized understanding. The risks, benefits, and alternatives of sedation and/or procedure were discussed by physician. The patient agrees to continue. Procedure started. [facility] Clinical Fraility Score: 3: Managing Well. 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 Chest Pain Symptom Assessment: Atypical Angina. Physician arrived. Correct patient, site and procedure confirmed by cath team. Current diagnosis: Chest Pain. PERRLA. Strong, equal hand aerospace stress engineer bilaterally. Lungs clear x 5 lobes. IV Site on Arrival: 20 gauge in the right anticubital. IV Fluids: 0.9% NaCl at KVO. 0 mL infused prior to lab aide. Pre Procedural Pulses: bilateral dorsalis pedis was 2+. Pre Procedural Pulses: bilateral posterior tibial was 1+. Pre Procedural Pulses: bilateral radial was 2+. Oxygen started at 2liters/min via nasal canula. right groin was prepped with chloroprep then draped in the usual sterile fashion. right radial was prepped with chloroprep then draped in the usual sterile fashion. Baseline sample Acquired. HR: 58 BPM. Current Diagnosis : Chest Pain. Physician scrubbed in. Immediate Pre-Procedure Time Out. Correct Patient: Yes; Correct Procedure: Yes; Correct Site: Yes; Correct Patient Position: Yes; Correct Supplies: Yes; Dried Flammable Prep: Yes; Blood Products Available: N/A;. Lidocaine 1% infiltrated to the right groin. Ultrasound being used to obtain access. Arterial access obtained with micropuncture set. A 5 [place] JL4 catheter in over wire. Multiple views taken of left coronary artery. Catheter removed over the standard wire. A 5 [place] JR4 catheter in over wire. SVG to LAD occluded. SVG's to Circumflex visualized and patent. Catheter removed over the standard wire. A Right femoral angiogram was performed to determine safe placement of closure device. Multiple views taken of right coronary artery. A Mynx was successful obtaining hemostatsis at the Right Femoral artery insertion site. Post Procedure: Pulses reassessed and unchanged. PERRLA. Strong, equal hand aerospace stress engineer bilaterally. No VTE prophylaxis required. Medication's Wasted: Lidocaine 1% = 10 mL. Medication's Wasted: Heparin = 1000 units. Total IV fluids: 125 mL. Post-op diagnosis: CAD. Complications: None. Vital chart was stopped. Estimated blood loss: 5mL-10mL. Responsiveness - Normal response to verbal stimuli; alert and oriented, PERRLA. Airway - Unaffected, no intervention required; spontaneous ventilation. Circulation: W/N/L, pulses unchanged. Nausea/Vomiting: No. Procedure completed. Patient transferred by bed to CPRU. Access Site Site: Right Femoral artery Sheath Size: 6 Fr Hemostasis Method: Mynx Hemostasis Success: Successful Procedure Medications Start: 8:22 AM Stop: 8:22 AM Medication: Versed Amount: 1 mg Route: I.V. Start: 8:22 AM Stop: 8:22 AM Medication: Fentanyl Amount: 50 mcg Route: I.V. Start: 8:46 AM Stop: 8:46 AM Medication: Versed Amount: 1 mg Route: I.V. Start: 8:46 AM Stop: 8:46 AM Medication: Fentanyl Amount: 50 mcg Route: I.V. I, the attending physician, have reviewed and verified all procedure medications. Yes, all medications given per verbal order History/Risk Factors Hypertension: Yes Dyslipidemia: Yes Peripheral Arterial Disease (PAD): No Myocardial Infarction (CA): Yes Obesity: No Renal Disease: No Prior Interventions PCI: Yes CABG: Yes Valve Surgery: No Date of PCI: 09/07/2022 Report Signatures Finalized by Dereje Walters MD on 05/03/2024 01:12 PM
[2024-05-03] MEDS: diphenhydrAMINE 50 mg Capsule PO (07:45)
[2024-05-03] MEDS: aspirin 325 mg Tablet PO (07:45)
[2024-05-03 08:01] LABS: Basophils % 0.5 %; Eosinophils # 0.3 10^3/uL (0.0-0.8); Eosinophils % 3.9 %; Hematocrit 43.7 % (37-53); Lymphocytes # 2.1 10^3/uL (0.8-4.8); Lymphocytes % 24.2 %; Mean Corpuscular HGB Conc 32.7 g/dL (30-55); Mean Corpuscular Hemoglobin 31.2 pg (27-33); Mean Corpuscular Volume 95.4 fl (82-101); Mean Platelet Volume 9.8 fL (7.4-10.4); Monocytes # 0.6 10^3/uL (0.2-0.9); Monocytes % 7.4 %; Neutrophils # 5.39 10^3/uL (1.8-7.7); Neutrophils % 63.2 %; Nucleated Red Blood Cells % 0 %; Platelet Count 271 10^3/cmm (157-399); Red Blood Count 4.58 10^6/uL (3.85-5.65); White Blood Count 8.52 10^3/uL (3.29-11.43)
[2024-05-03 08:12] LABS: Anion Gap 14.1 (5-19); Blood Urea Nitrogen 10 mg/dL (8-23); Calcium 8.7 mg/dL (8.5-10.5); Carbon Dioxide 24 mmol/L (22-29); Chloride 102 mmol/L (98-107); Glomerular Filtration Rate 113.5 mL/min (90-130); Glucose 101 mg/dL (65-115); Osmolality Calculated 281 mOsm/kg (285-295); Potassium 4.1 mmol/L (3.5-5.1); Sodium 136 mmol/L (136-145)
--- NOTE | 2024-05-03 08:16 | W.PM.OPSUD ---
Surgery/Procedure H&P Update DATE OF PROCEDURE: May 03, 2024 DATE H&P PERFORMED: 04/09/24 H&P UPDATE INFORMATION: I have reviewed H&P completed within last 30 days, I have examined patient prior to procedure and Changes to prior documentation as noted here CHANGES TO PREVIOUS DOCUMENTATION: Office patient of Dr Palm. Patient has been having worsening anginal symptoms. Had a stress test that was abnormal. Cannot do any physical activity without starting to have chest pain and shortness of breath. He has limited blood supply with only patent grafts being SVG to LAD and SVG to OM. CUETO was not used before. Plan for coronary angiogram with possible PCI. Risks and benefits of the procedure have been discussed in detail. I have informed him that any intervention on his coronary arteries will be high risk given his limited blood supply, LV dysfunction. He was also found to have possible LV thrombus on recent echocardiogram. Chest pain has woken him up and he is requiring multiple nitros. Plan for coronary angiogram with possible PCI. PREOP DIAGNOSIS: Worsening angina/ Unstable angina PRIMARY INDICATION FOR PROCEDURE: Worsening angina/ Unstable angina PLANNED PROCEDURE: Operation Date: 05/03/24 07:30 Proposed Procedures p Cardiac Catheterization(Not Applicable) - Dereje Walters M.D Possible percutaneous coronary intervention PATIENT REASSESSED PRIOR TO SEDATION, WITH NO CHANGE NOTED: Yes PHYSICAL EXAM: alert, oriented x 3, clear to auscultation bilaterally and regular rate & rhythm AIRWAY EVAL/ANESTHESIA PLAN: normal airway, ASA III, Local Anesthesia, Risks, benefits & alternatives of sedation and/or procedure discussed and Patient agrees to continue as planned ADDITIONAL INFORMATION: Moderate sedation
--- NOTE | 2024-05-03 09:10 | SUR.EXTENDED ---
Received the patient back from the label pinker via bed s/p Diagnostic [facility]. Patient drowsy. Awakens to verbal stimuli. A & 0 x 3. cephalometric tracer placed and vital signs obtained. Right femoral access s/p Mynx closure. Groin soft with no bleeding or hematoma noted. Dressing D/I. No other assessment changes noted from pre cath assessment. Will transfer to room 102 after recovery. Patient with no concerns voiced at this time.
--- NOTE | 2024-05-03 09:46 | SUR.EXTENDED ---
Patient transferred via bed to [facility].
--- NOTE | 2024-05-03 10:50 | PC.NURSE ---
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 Patient had LHC with minx closure device to the right groin. Bedrest 4hours. Patient is aware of activity restrictions and verbalized understanding. No hematoma or oozing present at the site. Patient alert and oriented to room and self.
--- NOTE | 2024-05-03 11:04 | ECG_ITS ---
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 Measurements Intervals [place] Rate: 65 P: 42 IN: 172 QRS: 14 QRSD: 108 T: 64 QT: 402 QTc: 418 Interpretive Statements SINUS RHYTHM LOW QRS VOLTAGE IN PRECORDIAL LEADS [QRS DEFLECTION < 1.0 mV IN CHEST LEADS] POSSIBLE ANTERIOR MYOCARDIAL INFARCTION , OF INDETERMINATE AGE [30 ms Q WAVE IN V3/V4, OR R < 0.2 mV IN V4] INFERIOR MYOCARDIAL INFARCTION , PROBABLY OLD [40+ ms Q WAVE AND/OR ST/T ABNORMALITY IN II/aVF] Compared to ECG 09/09/2022 10:15:32 No significant changes Electronically Signed On 05-03-2024 11:56:58 CDT by Dereje Walters M.D. [id number]
--- NOTE | 2024-05-03 11:08 | XRR_ITS ---
PROCEDURE INFORMATION: Exam: XR Chest Exam date and time: 05/03/2024 11:37 AM Age: 63 years old Clinical indication: Shortness of breath TECHNIQUE: Imaging protocol: Radiologic exam of the chest. Views: 1 view. COMPARISON: CR XR chest 1V portable [id number] 09/08/2022 5:01 PM FINDINGS: Lungs: There is no consolidation. There is mild fine reticular and ground-glass opacity in the lower lungs. Pleural spaces: There is no pleural effusion or pneumothorax. Heart/Mediastinum: There is mild enlargement of the cardiac silhouette. Bones/joints: Sternal wires are present. There is no displacement to suggest sternal dehiscence. There is moderate degenerative disease at the left shoulder. XR/XR chest 1V portable [id number] IMPRESSION: Mild lower lung predominant reticular and ground-glass opacity is similar to findings on 09/08/2022 and may represent chronic scarring or atelectasis or mild recurrent interstitial edema.
[2024-05-03 11:44] LABS: NT Pro B Type Natriuretic Pept 547 pg/mL (0-125)
[2024-05-03 12:11] LABS: Troponin(5th) Baseline 15 ng/L (0-15)
--- NOTE | 2024-05-03 12:41 | PM.MISC ---
Miscellaneous Note Purpose of Documentation: Brief progress/procedure note Note: Coronary angiogram was performed that showed myocardium is dependent on flow through SVG to LCx/OM. This vessel is supplying collaterals to other territories. Other bypass grafts are occluded. CUETO was never used at time of initial surgery. This SVG to LCx/OM also has proximal severe 80 to 90% in-stent restenosis. Patient has severe LV dysfunction, LV thrombus and has unstable angina symptoms. We are admitting him for management of unstable angina and will transfer to tertiary care facility with advanced heart failure and CT surgery availability. He will need heart team discussion for best possible option. Intervention of SVG graft is very high risk as there is no other blood supply that is patent. Given recent diagnosis of possible LV thrombus, Impella cannot be placed. I have discussed in detail all optionS. He is in agreement for assessment at tertiary care facility. We will intiate the transfer process. Patient will be put back on anticoagulation 4 hours post sheath pull. Trending troponins Ordering chest X ray.
[2024-05-03 14:11] LABS: Troponin 5 2HR 23.34 ng/L (0-15); Troponin 5 2HR Delta 8.34 ABS# (0-10)
--- NOTE | 2024-05-03 14:16 | PC.NURSE ---
Physician Orders Initiate heparin gtt weight based protocol.
[2024-05-03] MEDS: heparin 5,000 unit/mL INJ 1 mL IVP (14:41)
[2024-05-03] MEDS: heparin drip 25,000 UNIT/500 ML PREMIX 21 UNIT IV (14:41)
[2024-05-03] MEDS: ipratropium-albuterol 3 mL Neb INHALATION (16:07)
[2024-05-03 18:49] LABS: Troponin 5 6HR 16.03 ng/L (0-15); Troponin 5 6HR Delta 1.03 ng/L (0-12)
--- NOTE | 2024-05-03 18:52 | PM.TDS ---
Transfer Summary Providers Date of Admission: 05/03/2024 Date of Discharge/Transfer: 05/03/24 Attending Provider at Admission: Dereje Walters MD/ Cardiology Attending Provider at Transfer: Dereje Walters M.D Primary Care Provider: ANGELINA El Transfer Plans: Anticipated date of transfer: 05/03/24. Receiving Facility: [facility]. Receiving Provider: Dr Ward. Reason for Visit Reason for Visit [id number] Brief History: 63-year-old man with past medical history of coronary artery disease, history of CABG in 2005 in [place] and multiple stents stents, congestive heart failure, possible LV thrombus on Eliquis who was recently seen in the office with worsening angina symptoms and underwent stress test. Stress test was markedly abnormal. Echo showed EF of 20 to 25% which is a recent decrease from 35% before. Patient has been having worsening unstable anginal symptoms in the recent few weeks. He says he wakes up in the middle of the night with chest pain. Has been taking multiple nitros. Hospital Course Hospital Course Coronary angiogram demonstrated CUETO to LAD was never used at time of his prior surgery. His SVG to LAD is totally occluded. SVG to RCA is known occluded. Not injected. SVG to left circumflex artery is the only blood supply he has. That also has prior stents. Proximal stent has severe 80-90% in-stent restenosis. This vessel gives collaterals to LAD and RCA territories. Given high risk nature of his coronary artery disease, we decided to plan for transfer to tertiary care center with availability of CT surgery and advanced heart failure team. He will need heart team discussion regarding best options for him. This was discussed in detail with patient and family. We are starting heparin gtt. Case was discussed with [facility] and patient accepted for transfer. Physical Exam Narrative: GENERAL: Patient is alert, awake and oriented x3. [] NECK: No jugular vein distension. [] HEENT: No cyanosis. No icterus. No pallor. [] HEART: Regular S1 and S2. No murmur, rub or gallop. [] LUNGS: Clear to auscultate bilaterally. [] CENTRAL NERVOUS SYSTEM: Grossly nonfocal. [] EXTREMITIES: Lower extremities with no edema bilaterally. TS Data Studies Completed and Pending Pending at discharge Category Date Time Status Basic Metabolic Panel AM LABS Lab 05/04/24 04:00 Ordered Complete Blood Count w/Auto AM LABS Lab 05/04/24 04:00 Ordered PTT [Partial Thromboplastin Time] Timed Lab 05/03/24 20:45 Ordered Platelet Count Q2D Lab 05/05/24 04:00 Ordered Platelet Count Q2D Lab 05/07/24 04:00 Ordered Completed Studies During Hospitalization Category Date Time Status [employer] request for service Routine Exams 05/03/24 07:32 Completed XR chest 1V portable [id number] Routine Exams 05/03/24 11:08 Completed Laboratory Last Values WBC 8.52 10^3/uL (3.29-11.43) 05/03/24 07:43 RBC 4.58 10^6/uL (3.85-5.65) 05/03/24 07:43 Hgb 14.30 g/dL (11.27-16.99) 05/03/24 07:43 Hct 43.7 % (37-53) 05/03/24 07:43 MCV 95.4 fl (82-101) 05/03/24 07:43 MCH 31.2 pg (27-33) 05/03/24 07:43 MCHC 32.7 g/dL (30-55) 05/03/24 07:43 RDW 13.0 % (12.1-15.1) 05/03/24 07:43 Plt Count 271 10^3/cmm (157-399) 05/03/24 07:43 MPV 9.8 fL (7.4-10.4) 05/03/24 07:43 Neut % (Auto) 63.2 % 05/03/24 07:43 Lymph % (Auto) 24.2 % 05/03/24 07:43 Edgar % (Auto) 7.4 % 05/03/24 07:43 Eos % (Auto) 3.9 % 05/03/24 07:43 Baso % (Auto) 0.5 % 05/03/24 07:43 Neut # (Auto) 5.39 10^3/uL (1.8-7.7) 05/03/24 07:43 Lymph # (Auto) 2.1 10^3/uL (0.8-4.8) 05/03/24 07:43 Edgar # (Auto) 0.6 10^3/uL (0.2-0.9) 05/03/24 07:43 Eos # (Auto) 0.3 10^3/uL (0.0-0.8) 05/03/24 07:43 Baso # (Auto) 0.0 10^3/uL (0.0-0.1) 05/03/24 07:43 Nucleated RBC % (auto) 0 % 05/03/24 07:43 Nucleated RBCs # 0.0 /100WBC 05/03/24 07:43 Sodium 136 mmol/L (136-145) 05/03/24 07:43 Potassium 4.1 mmol/L (3.5-5.1) 05/03/24 07:43 Chloride 102 mmol/L (98-107) 05/03/24 07:43 Carbon Dioxide 24 mmol/L (22-29) 05/03/24 07:43 Anion Gap 14.1 (5-19) 05/03/24 07:43 BUN 10 mg/dL (8-23) 05/03/24 07:43 Creatinine 0.7 mg/dL (0.7-1.2) 05/03/24 07:43 GFR Calculation 113.5 mL/min (90-130) 05/03/24 07:43 Glucose 101 mg/dL (65-115) 05/03/24 07:43 Calculated Osmolality 281 mOsm/kg (285-295) L 05/03/24 07:43 Calcium 8.7 mg/dL (8.5-10.5) 05/03/24 07:43 Troponin T Baseline 15 ng/L (0-15) 05/03/24 11:40 Troponin T 120 Minute 23.34 ng/L (0-15) H 05/03/24 13:48 Delta Troponin T 8.34 ABS# (0-10) 05/03/24 13:48 Troponin T Hi Sens 6Hr 16.03 ng/L (0-15) H 05/03/24 18:14 Troponin T Hi Sens 6Hr Delta 1.03 ng/L (0-12) 05/03/24 18:14 NT-Pro-B Natriuret Pep 547 pg/mL (0-125) H 05/03/24 07:43 Radiology Impressions Chest X-Ray 05/03/24 11:08 IMPRESSION: Mild lower lung predominant reticular and ground-glass opacity is similar to findings on 09/08/2022 and may represent chronic scarring or atelectasis or mild recurrent interstitial edema. Recent Clincial Data Last Vital Signs Temp 98.0 F 05/03/24 12:18 Pulse 70 05/03/24 18:30 Resp 28 H 05/03/24 18:30 BP 93/61 05/03/24 17:45 Pulse Ox 94 05/03/24 18:30 O2 Del Method Room Air 05/03/24 16:07 Vital Signs Temp Pulse Resp BP BP Pulse Ox O2 Del Method 05/03/24 18:30 70 28 H 94 05/03/24 18:15 71 29 H 93 05/03/24 18:00 70 27 H 93 05/03/24 17:45 72 31 H 93/61 92 05/03/24 17:30 74 26 H 93/61 95 05/03/24 17:15 85 24 H 93/61 94 05/03/24 17:00 73 23 H 87/47 93 05/03/24 16:45 68 25 H 97/64 95 05/03/24 16:30 68 27 H 97/64 93 05/03/24 16:15 65 26 H 97/64 94 05/03/24 16:07 65 16 95 Room Air 05/03/24 16:00 64 26 H 97/64 94 05/03/24 15:45 68 27 H 96/71 95 05/03/24 15:30 64 28 H 96/71 95 05/03/24 15:15 61 29 H 96/71 95 05/03/24 15:00 64 26 H 96/71 95 05/03/24 14:45 77 26 H 113/68 95 05/03/24 14:30 113/68 05/03/24 14:15 63 24 H 113/68 96 05/03/24 14:00 63 27 H 98/69 95 05/03/24 13:45 66 28 H 109/67 95 05/03/24 13:30 63 25 H 109/67 95 05/03/24 13:15 63 26 H 112/80 95 05/03/24 13:00 62 25 H 99/64 94 05/03/24 12:45 69 29 H 113/79 95 05/03/24 12:30 65 25 H 102/70 94 05/03/24 12:18 98.0 F 67 28 H 109/75 97 Room Air 05/03/24 12:15 73 24 H 122/79 96 05/03/24 12:00 64 27 H 108/82 96 05/03/24 11:45 68 23 H 96 05/03/24 11:38 693 H 16 97 Room Air 05/03/24 11:30 71 25 H 109/75 97 05/03/24 11:15 66 25 H 109/75 98 05/03/24 11:04 70 05/03/24 11:04 97.5 F L 63 19 H 106/74 97 Room Air 05/03/24 11:00 68 22 H 106/74 97 05/03/24 10:45 64 28 H 104/66 97 05/03/24 10:30 66 18 98 05/03/24 10:15 63 26 H 90/71 96 05/03/24 10:00 61 17 91/60 95 05/03/24 09:54 63 26 H 05/03/24 09:30 60 18 90/61 95 Room Air 05/03/24 09:15 61 16 95/66 96 Room Air 05/03/24 09:10 62 14 96/61 95 Room Air 05/03/24 08:20 97.6 F 77 16 98/67 05/03/24 08:20 Room Air 05/03/24 08:17 97.6 F 77 16 98/67 Intake & Output/Weight 05/01/24 05/02/24 05/03/24 05/04/24 06:59 06:59 06:59 06:59 Weight 161 lb Vitals Last Vital Signs Temp 98.0 F 05/03/24 12:18 Pulse 70 05/03/24 18:30 Resp 28 H 05/03/24 18:30 BP 93/61 05/03/24 17:45 Pulse Ox 94 05/03/24 18:30 O2 Del Method Room Air 05/03/24 16:07 TS Medications Medications Acetaminophen (Acetaminophen 325 Mg Tablet) 650 mg PO Q6H PRN PRN Reason: MILD PAIN Al Hydrox/Mg Hydrox/Simethicone (Ymnq-Dka-Hwjvvpwon-Faustina 30 Ml Udc) 30 ml PO Q15M PRN PRN Reason: INDIGESTION Albuterol Sulfate (Albuterol 2.5 Mg/3 Ml Neb) 2.5 mg INHALATION Q6H.RESP PRN PRN Reason: shortness of breath or wheezing Albuterol/Ipratropium (Ipratropium-Albuterol 3 Ml Neb) 3 ml INHALATION QID.RESPIRATORY RACHEL Last Admin: 05/03/24 16:07 Dose: 3 ml Alprazolam (Alprazolam 0.5 Mg Tablet) 0.25 mg PO TID PRN PRN Reason: ANXIETY Atropine Sulfate (Atropine 1 Mg/Ml Sdv 1 Ml) 0.5 mg IVP PRN PRN PRN Reason: Symptomatic bradycardia Budesonide (Budesonide 0.5 Mg/2 Ml Neb) 0.5 mg INHALATION BID.RESPIRATORY RACHEL Clopidogrel Bisulfate (Clopidogrel 75 Mg Tablet) 75 mg PO DAILY RACHEL Fentanyl (Fentanyl 50 Mcg/Ml Inj 2ml) 50 mcg IVP PRN PRN PRN Reason: PAIN Furosemide (Furosemide 20 Mg Tablet) 20 mg PO QAM RACHEL Heparin Sodium (Porcine) (Heparin 5,000 Unit/Ml Inj 1 Ml) 0 unit IVP PRN PRN; Protocol PRN Reason: Heparin Weight Based Protocol -Subsequent Bolus Sodium Chloride (Sodium Chloride 0.9%) 1,000 mls @ 50 mls/hr IV .Q20H ONE Stop: 05/04/24 03:32 Last Admin: 05/03/24 07:55 Dose: Not Given Heparin Sodium/Sodium Chloride (Heparin Drip) 25,000 unit in 500 mls @ 0 mls/hr IV CONT RACHEL; Protocol Last Admin: 05/03/24 14:41 Dose: 14.38 unit/kg/hr, 21 mls/hr Isosorbide Mononitrate (Isosorbide Mononitrate Er 30 Mg Tablet) 30 mg PO DAILY [facility] Lisinopril (Lisinopril 2.5 Mg Tablet) 2.5 mg PO DAILY [facility] Magnesium Hydroxide (Magnesium Hydroxide 30 Ml Udc) 30 ml PO DAILY PRN PRN Reason: CONSTIPATION Metoprolol Succinate (Metoprolol Succinate Er (24 Hr) 25 Mg Tablet) 25 mg PO DAILY [facility] Naloxone HCl (Naloxone 0.4 Mg/Ml Sdv) 0.1 mg IVP Q2M PRN PRN Reason: RESPIRATORY RATE < 8/MIN Nitroglycerin (Nitroglycerin 0.4 Mg Sublingual Tablet) 0.4 mg SUBLINGUAL Q5M PRN PRN Reason: CHEST PAIN Ondansetron HCl (Ondansetron 4 Mg Tablet) 4 mg PO TID PRN PRN Reason: nausea and vomiting Potassium Chloride (Potassium Chloride Er 10 Meq Tablet) 10 meq PO DAILY RACHEL Spironolactone (Spironolactone 25 Mg Tablet) 25 mg PO DAILY RACHEL Tamsulosin HCl (Tamsulosin 0.4 Mg Capsule) 0.4 mg PO DAILY RACHEL Temazepam (Temazepam 15 Mg Capsule) 15 mg PO BEDTIME PRN PRN Reason: INSOMNIA Discontinued Medications Albuterol Sulfate (Albuterol 2.5 Mg/3 Ml Neb) 2.5 mg INHALATION QID.RESPIRATORY RACHEL Aspirin (Aspirin 325 Mg Tablet) 325 mg PO ONCE ONE Stop: 05/03/24 07:34 Last Admin: 05/03/24 07:45 Dose: 325 mg Diphenhydramine HCl (Diphenhydramine 50 Mg Capsule) 50 mg PO ONCE ONE Stop: 05/03/24 07:34 Last Admin: 05/03/24 07:45 Dose: 50 mg Fentanyl (Fentanyl 50 Mcg/Ml Inj 2ml) Confirm Administered Dose 100 mcg .ROUTE .STK-MED ONE Stop: 05/03/24 08:15 Heparin Sodium (Porcine) (Heparin 5,000 Unit/Ml Inj 1 Ml) Confirm Administered Dose 5,000 unit .ROUTE .STK-MED ONE Stop: 05/03/24 07:34 Heparin Sodium (Porcine) (Heparin 5,000 Unit/Ml Inj 1 Ml) 0 unit IVP ONCE ONE; Protocol Stop: 05/03/24 14:16 Last Admin: 05/03/24 14:41 Dose: 3,700 unit Sodium Chloride (Sodium Chloride 0.9%) Confirm Administered Dose 1,000 mls @ as directed .ROUTE .STK-MED ONE Stop: 05/03/24 08:16 Lidocaine HCl (Xylocaine) Confirm Administered Dose 20 mls @ as directed .ROUTE .STK-MED ONE Stop: 05/03/24 08:22 Ipratropium [place] (Ipratropium 0.5 Mg/2.5 Ml Neb) 0.5 mg INHALATION QID.RESPIRATORY RACHEL Midazolam HCl (Midazolam 1 Mg/Ml Inj 2 Ml) Confirm Administered Dose 2 mg .ROUTE .STK-MED ONE Stop: 05/03/24 08:15 Allergies [id number] Reductase Inhibitor Allergy (Verified 04/23/24 07:49) ADR-Muscle Pain atorvastatin [From Lipitor] Adverse Reaction (Severe, Verified 04/23/24 07:49) leg pain Home Medications albuterol sulfate 90 mcg/actuation aerosol inhaler 2 inh inhalation Q6H PRN shortness of breath or wheezing 30 days #8.5 grams 06/17/22 [Rx Confirmed 05/03/24] fluticasone 250 mcg-salmeterol 50 mcg/dose blistr powdr for inhalation (Advair Diskus) 1 inh inhalation Q12H #60 ea 06/17/22 [Rx Confirmed 05/03/24] tiotropium bromide 18 mcg capsule with inhalation device (Spiriva with HandiHaler) 1 cap inhalation DAILY 30 days #30 inhalations 06/17/22 [Rx Confirmed 05/03/24] albuterol sulfate 90 mcg/actuation aerosol inhaler See Rx Instructions .Route .COMPLEX #9 grams 12/07/23 [Rx Confirmed 05/03/24] clopidogrel 75 mg tablet See Rx Instructions .Route .COMPLEX #30 tabs 12/07/23 [Rx Confirmed 05/03/24] isosorbide mononitrate 30 mg tablet,extended release 24 hr See Rx Instructions .Route .COMPLEX #60 tabs 12/07/23 [Rx Confirmed 05/03/24] lisinopril 2.5 mg tablet See Rx Instructions .Route .COMPLEX #30 tabs 12/07/23 [Rx Confirmed 05/03/24] metoprolol succinate 25 mg tablet,extended release 24 hr See Rx Instructions .Route .COMPLEX #30 tabs 12/07/23 [Rx Confirmed 05/03/24] spironolactone 25 mg tablet 25 mg PO DAILY #30 tabs 12/07/23 [Rx Confirmed 05/03/24] evolocumab 140 mg/mL subcutaneous pen injector (Repatha Beckaick) 140 mg SUBCUT .every 14 days #2 mL 12/21/23 [Rx Confirmed 05/03/24] ondansetron 4 mg disintegrating tablet 4 mg PO TID PRN nausea and vomiting #60 tabs 12/21/23 [Rx Confirmed 05/03/24] potassium chloride 10 mEq capsule,extended release 10 meq PO DAILY #90 caps 12/21/23 [Rx Confirmed 05/03/24] nitroglycerin 0.4 mg sublingual tablet See Rx Instructions .Route .COMPLEX #25 tabs 03/20/24 [Rx Confirmed 05/03/24] tamsulosin 0.4 mg capsule 0.4 mg PO DAILY #30 caps 04/01/24 [Rx Confirmed 05/03/24] furosemide 20 mg tablet 20 mg PO QAM #90 tabs 04/09/24 [Rx Confirmed 05/03/24] apixaban 5 mg tablet 5 mg PO BID #180 tabs 04/16/24 [Rx Confirmed 05/03/24] Discharge Plan Discharge Patient Disposition: Home Prescriptions: No Action tamsulosin 0.4 mg capsule 0.4 mg PO DAILY Qty: 30 2RF albuterol sulfate 90 mcg/actuation HFA aerosol inhaler 2 inh INHALATION Q6H PRN (Reason: shortness of breath or wheezing) 30 Days Qty: 8.5 5RF fluticasone propion-salmeterol [Advair Diskus] 250-50 mcg/dose blister with device 1 inh INHALATION Q12H Qty: 60 5RF Spiriva with HandiHaler 18 mcg capsule, w/inhalation device 1 cap INHALATION DAILY 30 Days Qty: 30 5RF Rx Instructions: puncture 1 cap using device; one dose = 2 inhalations isosorbide mononitrate 30 mg tablet extended release 24 hr See Rx Instructions .ROUTE .COMPLEX Qty: 60 5RF Dose Instruction: Take 1 tablet by mouth once daily Rx Instructions: Take 1 tablet by mouth once daily clopidogrel 75 mg tablet See Rx Instructions .ROUTE .COMPLEX Qty: 30 5RF Dose Instruction: Take 1 tablet by mouth once daily Rx Instructions: Take 1 tablet by mouth once daily lisinopril 2.5 mg tablet See Rx Instructions .ROUTE .COMPLEX Qty: 30 5RF Dose Instruction: Take 1 tablet by mouth once daily Rx Instructions: Take 1 tablet by mouth once daily spironolactone 25 mg tablet 25 mg PO DAILY Qty: 30 5RF metoprolol succinate 25 mg tablet extended release 24 hr See Rx Instructions .ROUTE .COMPLEX Qty: 30 5RF Dose Instruction: Take 1 tablet by mouth once daily Rx Instructions: Take 1 tablet by mouth once daily albuterol sulfate 90 mcg/actuation HFA aerosol inhaler See Rx Instructions .ROUTE .COMPLEX Qty: 9 5RF Dose Instruction: INHALE 2 PUFFS BY MOUTH EVERY 6 HOURS NEEDED FOR SHORTNESS OF BREATH AND FOR WHEEZING Rx Instructions: INHALE 2 PUFFS BY MOUTH EVERY 6 HOURS NEEDED FOR SHORTNESS OF BREATH AND FOR WHEEZING Repatha SureClick 140 mg/mL pen injector 140 mg SUBCUT .every 14 days Qty: 2 12RF potassium chloride 10 mEq capsule, extended release 10 meq PO DAILY Qty: 90 1RF ondansetron 4 mg tablet,disintegrating 4 mg PO TID PRN (Reason: nausea and vomiting) Qty: 60 0RF nitroglycerin 0.4 mg tablet, sublingual See Rx Instructions .ROUTE .COMPLEX Qty: 25 1RF Dose Instruction: DISSOLVE ONE TABLET UNDER THE TONGUE EVERY 5 MINUTES NEEDED FOR CHEST PAIN. DO NOT EXCEED A TOTAL OF THREE DOSES IN 15 MINUTES Rx Instructions: DISSOLVE ONE TABLET UNDER THE TONGUE EVERY 5 MINUTES NEEDED FOR CHEST PAIN. DO NOT EXCEED A TOTAL OF THREE DOSES IN 15 MINUTES furosemide 20 mg tablet 20 mg PO QAM Qty: 90 1RF apixaban 5 mg tablet 5 mg PO BID Qty: 180 1RF Transfer Attestations Time Spent in Transfer Care: greater than 30 min Quality Metrics Clinical Quality Measures [ No reported AMI, CVA or VTE this stay] Coding Level of Care Code Acute Code for Chg Fwd
[2024-05-03 20:51] LABS: Partial Thromboplastin Time 56.3 SECONDS (23.9-36.7)
[2024-05-03] MEDS: budesonide 0.5 mg/2 mL Neb INHALATION (21:04)
[2024-05-03] MEDS: albuterol 2.5 mg/3 mL Neb INHALATION (21:04)
[2024-05-03] MEDS: temazepam 15 mg Capsule PO (21:16)
[2024-05-04 03:25] LABS: Basophils % 0.3 %; Eosinophils # 0.2 10^3/uL (0.0-0.8); Eosinophils % 2.2 %; Hematocrit 39.7 % (37-53); Lymphocytes # 2.3 10^3/uL (0.8-4.8); Lymphocytes % 25.6 %; Mean Corpuscular HGB Conc 32.5 g/dL (30-55); Mean Corpuscular Hemoglobin 31.2 pg (27-33); Mean Corpuscular Volume 95.9 fl (82-101); Mean Platelet Volume 10.2 fL (7.4-10.4); Monocytes # 0.6 10^3/uL (0.2-0.9); Monocytes % 6.5 %; Neutrophils # 5.69 10^3/uL (1.8-7.7); Neutrophils % 64.8 %; Nucleated Red Blood Cells % 0 %; Platelet Count 229 10^3/cmm (157-399); Red Blood Count 4.14 10^6/uL (3.85-5.65); Red Cell Distribution Width 13.1 % (12.1-15.1); White Blood Count 8.78 10^3/uL (3.29-11.43)
[2024-05-04 03:39] LABS: Partial Thromboplastin Time 56.5 SECONDS (23.9-36.7)
[2024-05-04 03:46] LABS: Anion Gap 13.9 (5-19); Blood Urea Nitrogen 9 mg/dL (8-23); Calcium 8.5 mg/dL (8.5-10.5); Carbon Dioxide 24 mmol/L (22-29); Chloride 103 mmol/L (98-107); Creatinine Clr Calc Pharmacy 95.5296; Glomerular Filtration Rate 113.5 mL/min (90-130); Glucose 93 mg/dL (65-115); Osmolality Calculated 282 mOsm/kg (285-295); Potassium 3.9 mmol/L (3.5-5.1); Sodium 137 mmol/L (136-145)
[2024-05-04 04:00] VITALS: BP 104/62; PULSE 72; RESP 27; TEMP 36.9; O2SAT 92
--- NOTE | 2024-05-04 04:54 | PC.NURSE ---
patient transferred to [facility] via ambulance, report given to Thompson Rahman RN, all belongings sent with patient
[2024-05-04 04:57] VITALS: BP 104/62; PULSE 72; RESP 27; TEMP 36.9; O2SAT 92
== END 2024-05-04 04:59 | disposition short-term general hospital, planned readmission (82) ==
LOC: CCL 05-06 05:40 → CSU 05-06 05:40
PROVIDERS: Admitting Provider Internal Medicine; PCP Nurse Practitioner Family; Visit Provider Internal Medicine
DX: T82.855A Stenosis of coronary artery stent, initial encounter (principal); I25.810 Atherosclerosis of coronary artery bypass graft(s) without angina pectoris; Z95.1 Presence of aortocoronary bypass graft; Z95.5 Presence of coronary angioplasty implant and graft; I11.0 Hypertensive heart disease with heart failure; I50.9 Heart failure, unspecified; I25.2 Old myocardial infarction; E78.5 Hyperlipidemia, unspecified
CPT/HCPCS: 36415; 71045; 80048; 83880; 84484; 85025; 85730; 93005; 93455; 94640; 96374; 96375; 99152; 99153; C1760; C1769; C1887; C1894; G0269; G0378; J1644; J2250; J3010; J7030; J7613; J7626; Q0163; Q9967

== ENCOUNTER → 2024-05-20 15:51 | Outpatient (BNVA) | payer MEDICARE, MEDICAID, SELFPAY | PROVIDERS: PCP Nurse Practitioner Family; Visit Provider Nurse Practitioner Family | DX: I25.118 Atherosclerotic heart disease of native coronary artery with other forms of angina pectoris (principal) | CPT/HCPCS: 80048 ==